=== PATIENT | female | born 1980 | race Caucasian/White ===

== ENCOUNTER → 2020-01-03 | Outpatient (REF) | payer MEDICARE ==
[2020-01-03 20:22] LABS: BASO % 0.4 % (0.0-1.0); EOS % 0.5 % (0.0-3.0); HEMATOCRIT 47.7 % (36.0-47.0); HEMOGLOBIN 15.1 g/dl (12.0-15.5); LYMPH # 2.1 10^3/uL (1.5-5.0); LYMPH % 28.5 % (24.0-44.0); MEAN CORPUSCULAR HEMOGLOBIN 31.2 pg (27.0-33.0); MEAN CORPUSCULAR HGB CONC 31.7 g/dl (32.0-36.5); MEAN CORPUSCULAR VOLUME 98.6 fl (80.0-96.0); MONO # 0.6 10^3/uL (0.0-0.8); MONO % 8.5 % (0.0-5.0); NEUTROPHILS # 4.6 10^3/uL (1.5-8.5); NEUTROPHILS % 61.8 % (36.0-66.0); PLATELET COUNT, AUTOMATED 345 10^3/uL (150-450); RED BLOOD COUNT 4.84 10^6/uL (4.00-5.40); WHITE BLOOD COUNT 7.4 10^3/uL (4.0-10.0)
== END ==
LOC: M SFHCLERA 15:25
PROVIDERS: ATTEND Nurse Practitioner Family
DX: Z86.39 Personal history of other endocrine, nutritional and metabolic disease (principal); Z86.2 Personal history of diseases of the blood and blood-forming organs and certain disorders involving the immune mechanism; Z79.899 Other long term (current) drug therapy
CPT/HCPCS: 82306; 85025; G0463

== ENCOUNTER → 2020-01-31 | Outpatient (CLI) | payer MEDICARE, MEDICAID ==
--- NOTE | 2020-02-02 03:13 | ECWPNPC ---
PATIENT NAME: JOSE FOWLER : 1980 GENDER: FEMALE VISIT DATE: 01/31/2020 DISCHARGE DATE: 01/31/20 1147 VISIT LOCKED DATE TIME: PHYSICIAN: PARIS TONY RESOURCE: PARIS TONY REASON FOR APPOINTMENT 1. LEFT TALUS FX,CHRONIC PAIN/RECIEVED INJ IN PAST HISTORY OF PRESENT ILLNESS PAIN SCREENING: PATIENT HAS A COMPLAINT OF ACUTE OR CHRONIC PAIN :YES LOCATION OF PAIN:NECK, RIGHT SHOULDER, LEFT HIP, RIGHT HIP, FEET, ANKLE(S) LEFT FOOT AND ANKLE, BACK OF NECK INTENSITY OF PAIN (SCALE OF 1 TO 10):6 WHAT DOES YOUR PAIN FEEL LIKE:ACHING, BURNING, SHARP, STABBING, TENDER, SORE, OTHER FEELS LIKE FRESH SPRAIN WHEN WALKING ESPECIALLY SOME DAYS IF FEELS LIKE NEEDLE PRICKS, INTENSE HEADACHE WHEN PAIN IS WORSEN DURATION:CONTINOUS, INTERMITTENT, BRIEF, AWAKENS FROM SLEEP 39-YEAR-OLD FEMALE IN FOR INITIAL PAIN CONSULT. SHE RATES HER PAIN CURRENTLY AT A 6 OUT OF 10 AND DESCRIBES IT ACHING, BURNING, SORE, TENDER, SHARP, AND STABBING. PATIENT HAS A HISTORY OF A LEFT TALUS FRACTURE AND HEAD INJECTIONS FOR THIS IN THE PAST WITH GOOD RELIEF IS HOPING TO HAVE THOSE PERFORMED AGAIN. FALL RISK SCREENING: SCREENING :NO FALLS REPORTED IN THE LAST YEAR CURRENT MEDICATIONS TAKING OMEPRAZOLE 40 MG CAPSULE DELAYED RELEASE ORAL TAKING ALBUTEROL SULFATE HFA 108 (90 BASE) MCG/ACT AEROSOL SOLUTION 1 PUFF NEEDED INHALATION EVERY 4 HRS TAKING MONTELUKAST SODIUM 10 MG TABLET 1 TABLET ORAL ONCE A DAY TAKING FLUTICASONE PROPIONATE 50 MCG/ACT SUSPENSION 1 SPRAY IN EACH NOSTRIL NASAL ONCE A DAY TAKING ADVAIR HFA 230-21 MCG/ACT AEROSOL 2 PUFFS INHALATION TWICE A DAY TAKING ACETAMINOPHEN-CODEINE #3 300-30 MG TABLET 1 TABLET NEEDED ORALLY EVERY 6 HRS TAKING BACLOFEN 10 MG TABLET 1 TABLET WITH FOOD OR MILK ORAL BEFORE BEDTIME NOT-TAKING DOXYCYCLINE MONOHYDRATE 100 MG CAPSULE 1 CAPSULE ORALLY EVERY 12 HRS MEDICATION LIST REVIEWED AND RECONCILED WITH THE PATIENT PAST MEDICAL HISTORY GOLTZ SYNDROME TENSION HEADACHES OSTEOARTHRITIS OF LEFT SUBTALAR JOINT POSTERIOR TIBIAL TENDONITIS (LEFT) BICUSPID AORTIC VALVE ASTHMA GERD VASOVAGAL SYNCOPE TALUS BONE FRACTURE 2002 PELVIC TILT (HIP PAIN) ROTATED CUFF TEAR (SUB SCAPULARIS) RIGHT SHOULDER ALLERGIES SULFA (FOR ALLERGY USE ONLY): RASH - ALLERGY CEPHALEXIN: RASH - ALLERGY CLINDAMYCIN HCL: RASH - ALLERGY VANCOMYCIN HCL: RASH - ALLERGY BACTRIM: RASH - ALLERGY ERYTHROMYCIN: SWELLING - ALLERGY NAPROXEN: RASH - ALLERGY CELEBREX: HIVES, ITCHING,SWELLING - ALLERGY LACTOSE: INTOLERANT - ALLERGY SURGICAL HISTORY THROAT SURGERY, SHORT PALLET TONSILECTOMY PARTCIAL HYSTERECTOMY MULTIPLE EAR TUBES GALLBLADDER COLLAR BONE SURGERY- CHILD FAMILY HISTORY FATHER: ALIVE 67 YRS, DIAGNOSED WITH HYPERTENSION MOTHER: ALIVE 66 YRS 1 BROTHER(S) - HEALTHY. SOCIAL HISTORY GENERAL: TOBACCO USE ARE YOU A:NONSMOKER HIV / HEP-C SCREENING HIV TEST OFFERED TO PATIENT:YES DATE OFFERED:01/03/2020 TEST ACCEPTED:NO HEP-C TEST OFFERED TO PATIENT:NO REASON:PATIENT DECLINED BROCHURE PROVIDED TO PATIENTYES OTHERS AT HOME: PARENTS. EDUCATION LEVEL OF EDUCATION:FINISHED HIGH SCHOOL DIET: REGULAR. LANGUAGE LANGUAGES SPOKEN:VINCENTIAN DOMESTIC VIOLENCE DO YOU FEEL SAFE IN YOUR ENVIRONMENT?YES RECREATIONAL DRUG USE DRUG USE?NO EXERCISE: DAILY. 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 NEEDED?NO PAIN CLINIC PFS, CLERGY, PUBLIC HEALTH REFERRALS PFS REFERRAL NEEDED?NO CLERGY REFERRAL NEEDED?NO PUBLIC HEALTH REFERRAL NEEDED?NO WAS THE PROVIDER NOTIFIED OF ANY PERTINENT INFO?NO HAS THE PATIENT BEEN EDUCATED REGARDING HIS/HER PLAN OF CARE?YES HAS THE PATIENT BEEN EDUCATED REGARDING PAIN, THE RISK FOR PAIN, THE IMPORTANCE OF EFFECTIVE PAIN MANAGEMENT, AND THE PAIN ASSESSMENT PROCESS?YES LATEX QUESTIONNAIRE LATEX ALLERGY : HAVE YOU EVER DEVELOPED ANY TYPE OF REACTION AFTER HANDLING LATEX PRODUCTS SUCH RUBBER GLOVES, CONDOMS, DIAPHRAGMS, BALLOONS, SOCKS, OR UNDERWEAR?NO LATEX ALLERGY : HAVE YOU EVER DEVELOPED ANY TYPE OF REACTION DURING OR AFTER DENTAL APPOINTMENT, VAGINAL/RECTAL EXAMINATION, SURGICAL PROCEDURE, OR ANY OTHER EXPOSURE?NO DATE ASKED : 01/03/2020 LATEX RISK : HAVE YOU EVER HAD ANY DIFFICULTY BREATHING OR HIVES AFTER EATING OR HANDLING ANY FRUITS, OR VEGETABLES; SUCH KIWI, BANANAS, STONE FRUITS, OR CHESTNUTSNO LATEX RISK : DO YOU HAVE A PREVIOUS PERSONAL HISTORY OF MORE THAN NINE SURGERIES, SPINA BIFIDA, OR REPEATED CATHERIZATIONS? NO LATEX RISK : ARE YOU FREQUENTLY EXPOSED TO LATEX PRODUCTS IN YOUR OCCUPATION?NO CAFFEINE CAFFEINE USE?YES HOW OFTEN AND HOW MUCH? COFFEE , 1/DAY ADVANCE DIRECTIVE ADVANCE DIRECTIVE DISCUSSED WITH PATIENT:YES PT STATES SHE FILLED OUT ONE IN [place] AND WOULD LIKE INFORMATION OR ASSISTANCE TO FILL ONE OUT. 01/31/20 CONFUCIANISM [id number] NONE MARITAL STATUS: SINGLE. ALCOHOL SCREENING DID YOU HAVE A DRINK CONTAINING ALCOHOL IN THE PAST YEAR?YES HOW OFTEN DID YOU HAVE SIX OR MORE DRINKS ON ONE OCCASION IN THE PAST YEAR?NEVER (0 POINTS) HOW MANY DRINKS DID YOU HAVE ON A TYPICAL DAY WHEN YOU WERE DRINKING IN THE PAST YEAR?1 OR 2 (0 POINTS) HOW OFTEN DID YOU HAVE A DRINK CONTAINING ALCOHOL IN THE PAST YEAR?MONTHLY OR LESS (1 POINT) POINTS1 INTERPRETATIONNEGATIVE OCCUPATION: DISABLED. SEXUAL HX HAD SEX IN THE LAST 12 MONTHS (VAGINAL, ORAL, OR ANAL)?NO HAVE YOU EVER HAD AN STD?NO HOSPITALIZATION/MAJOR DIAGNOSTIC PROCEDURE ABOVE REVIEW OF SYSTEMS REVIEWED BY: PROVIDER: ESAU LIVE . CONSTITUTIONAL: ANY CHANGE IN YOUR MEDICAL CONDITION? NO . CHILLS NO . FEVER NO . INFECTION: DO YOU HAVE NEW INFECTIONS? YES, SINUS INFECTION . DO YOU HAVE HISTORY OF MRSA? NO . MUSCULOSKELETAL: ANY NEW PATTERNS OF PAIN OR NUMBNESS? YES, PAIN HAS GOTTEN WORSE . SYTEMIC LUPUS NO . GASTROENTEROLOGY: ANY NEW CHANGE IN BOWEL CONTROL? NO . BARRETTS ESOPHAGUS NO . CIRRHOSIS NO . HEPATITIS NO . LIVER FAILURE NO . ACID REFLUX YES . UNEXPLAINED WEIGHT LOSS NO . GENITOURINARY: ANY NEW CHANGE IN BLADDER CONTROL? NO . IS THERE A CHANCE YOU COULD BE ? NO . HEMATOLOGY/LYMPH: DO YOU TAKE ANY BLOOD THINNERS? (FOR EXAMPLE- COUMADIN, PLAVIX, AGGRENOX, PLATEL, PRADAXA, OR XARELTO) NO . WHEN WAS YOUR LAST DOSE? DATE: TIME: . LOW PLATELET COUNT NO . SICKLE CELL DISEASE NO . VON WILLIEBRANDS NO . FACTOR V LEIDEN NO . THALLASEMIA NO . ANEMIA NO . EASY BRUISING YES . NEUROLOGY: HAVE YOU FALLEN IN THE PAST 12 MONTHS? NO . ANY NEW EXTREMITY NUMBNESS OR WEAKNESS? NO . HEAD INJURY NO . DEMENTIA NO . CEREBRAL PALSY NO . MULTIPLE SCLEROSIS NO . DIZZINESS LIGHTHEADED SENSATION, SENSATION OF ROOM SPINNING . HEADACHE NO, DULL ACHE, CONSTANT, FREQUENT , OCCIPITAL, POUNDING . STROKES NO . VERTIGO NO . CARDIOLOGY: DO YOU HAVE A PACEMAKER OR DEFIBRILLATOR? NO . ANGINA NO . HEART ATTACK NO . HEART SURGERY NO . CONGESTIVE HEART FAILURE/FLUID OVERLOAD NO . CHEST PAIN NO . HIGH BLOOD PRESSURE NO . IRREGULAR HEART BEAT SKIPPED HEART BEAT . RESPIRATORY: HAVE YOU BEEN SICK IN THE PAST WEEK? YES, SINUS INFECTION . FEVER NO . FLU LIKE SYMPTOMS? NO . CPAP NO . BYPAP NO . EMPHYSEMA ASTHMA . CHRONIC LUNG DISEASES NO . SHORTNESS OF BREATH ON EXERTION NO . COUGH NO . SNORING NO . INTEGUMENTARY: DO YOU HAVE ANY RASHES OR OPEN SORES? NO . ALLERGIC/IMMUNO: ARE YOU ALLERGIC TO IV DYE? NO . ANY NEW ALLERGIES? NO . PSYCHIATRIC: DO YOU HAVE THOUGHTS OF HURTING YOURSELF OR SOMEONE ELSE? NO . ARE YOU ABUSED, NEGLECTED, OR IN AN UNSAFE ENVIRONMENT? NO . ENDOCRINOLOGY: ARE YOU DIABETIC? NO . THYROID DISORDER NO . OTHER: DO YOU NEED ANY PRESCRIPTIONS? YES,ACETAMINOPHEN-CODEINE . IF YES, PLEASE LIST: ____ . ANY NEW PROBLEMS WITH YOUR MEDICATIONS? NO . WHEN DID YOU LAST EAT? ____ . WHEN DID YOU LAST DRINK? ____ . WHAT DID YOU LAST DRINK? ____ . NAME OF PERSON DRIVING YOU HOME? ____ . DO YOU HAVE ANY OTHER QUESTIONS OR CONCERNS YES, SHE STATED SHE WAS SEEN IN [place] EVERY 6 MONTHS BY THE [facility] DOCTOR GOT CORTISONE SHOT IN FOOT, HIP AND SHOULDER NEEDED . VITAL SIGNS WT 149.8 LBS, HT 61 IN, BMI 28.30 INDEX, BP 129/68 MM HG, HR 90 /MIN, RR 18 /MIN, TEMP 98.9 F, OXYGEN SAT % 98, SAFE IN ENV? (Y/N) YES, REVIEWED BY: KATIE CHRISTIE LPN. EXAMINATION GENERAL EXAMINATION: GENERALNO ACUTE DISTRESS, WELL NOURISHED AND HYDRATED. PSYCHAPPROPRIATE MOOD AND AFFECT . LUNGS:CLEAR TO AUSCULTATION BILATERALLY, NO WHEEZES, RHONCHI, RALES. HEART:NO MURMURS, REGULAR RATE AND RHYTHM. ASSESSMENTS PAIN IN LEFT ANKLE AND JOINTS OF LEFT FOOT - M25.572 (PRIMARY) TREATMENT PAIN IN LEFT ANKLE AND JOINTS OF LEFT FOOT CLINICAL NOTES: 39-YEAR-OLD FEMALE IN FOR INITIAL PAIN CONSULT. INFORMED PATIENT THAT WE DO NOT DUE ANKLE JOINT INJECTIONS HERE RECOMMENDED REFERRAL TO ORTHOPEDICS FOR FURTHER EVALUATION. PATIENT HAS EXPRESSED UNDERSTANDING OF AND WAS IN AGREEMENT WITH TREATMENT PLAN. GIVEN TIME TO ASK QUESTIONS AND EXPRESS CONCERNS. REFERRAL TO:[facility] REASON:JOINT INJECTIONS PROCEDURE CODES FA211 ESTABILISHED PATIENT [facility] CHARGE DISPOSITION & COMMUNICATION FOLLOW UP NEEDED ELECTRONICALLY SIGNED BY BRENDAN BAILON ON 02/01/2020 AT 03:23 PM EDT DISCLAIMER : THIS IS A VISIT SUMMARY EXTRACTED FROM THE [employer] CHART. IT IS NOT A COPY OF THE [employer] PROGRESS NOTE. NAVD
== END ==
LOC: M PAIN 10:30
PROVIDERS: ATTEND Family Medicine
DX: M25.572 Pain in left ankle and joints of left foot (principal)

== ENCOUNTER → 2020-02-16 | Outpatient (CLI) | payer MEDICARE, MEDICAID ==
--- NOTE | 2020-02-16 17:48 | REP ---
HISTORY: Persistent asthma. COMPARISON: There are no priors for comparison. FINDINGS: The superior mediastinal structures are midline. The cardiac silhouette is unremarkable in size, shape and position. The diaphragmatic surfaces of the lungs are regular and the costophrenic angles are clear. The pulmonary nevarez are clear. The imaged osseous structures are intact. The lung nevarez are somewhat hyperexpanded consistent with the patient's diagnosis. IMPRESSION: There is no acute cardiopulmonary disease. The lung nevarez are somewhat hyperexpanded consistent with the patient's diagnosis. Electronically Signed by Erick Monet DO 02/16/2020 06:33 P
== END ==
LOC: M WUC 16:17
PROVIDERS: ATTEND Nurse Practitioner Family
DX: J45.909 Unspecified asthma, uncomplicated (principal)

== ENCOUNTER → 2020-04-09 | Outpatient (CLI) | payer MEDICARE, MEDICAID | LOC: M LABSMTC 14:07 | PROVIDERS: ATTEND Family Medicine | DX: Z03.818 Encounter for observation for suspected exposure to other biological agents ruled out (principal); Z11.59 Encounter for screening for other viral diseases | CPT/HCPCS: C9803; U0003 ==

== ENCOUNTER → 2020-07-05 | Outpatient (REF) | payer MEDICARE, MEDICAID ==
[2020-08-08 12:52] LABS: BASO % 0.3 % (0.0-1.0); EOS # 0.1 10^3/uL (0.0-0.5); EOS % 1.8 % (0.0-3.0); HEMATOCRIT 41.1 % (36.0-47.0); HEMOGLOBIN 13.6 g/dl (12.0-15.5); LYMPH # 2.4 10^3/uL (1.5-5.0); LYMPH % 35.5 % (24.0-44.0); MEAN CORPUSCULAR HEMOGLOBIN 32.2 pg (27.0-33.0); MEAN CORPUSCULAR HGB CONC 33.1 g/dl (32.0-36.5); MEAN CORPUSCULAR VOLUME 97.2 fl (80.0-96.0); MONO # 0.7 10^3/uL (0.0-0.8); MONO % 9.5 % (0.0-5.0); NEUTROPHILS # 3.6 10^3/uL (1.5-8.5); NEUTROPHILS % 52.5 % (36.0-66.0); PLATELET COUNT, AUTOMATED 311 10^3/uL (150-450); RED BLOOD COUNT 4.23 10^6/uL (4.00-5.40); WHITE BLOOD COUNT 6.8 10^3/uL (4.0-10.0)
[2020-08-29 16:37] LABS: ALBUMIN 3.7 GM/DL (3.2-5.2); ALT/SGPT 17 U/L (12-78); BILIRUBIN,TOTAL 0.9 MG/DL (0.2-1.0); BLOOD UREA NITROGEN 11 MG/DL (7-18); CALCIUM LEVEL 9.3 MG/DL (8.5-10.1); CARBON DIOXIDE LEVEL 31 MEQ/L (21-32); CHLORIDE LEVEL 104 MEQ/L (98-107); CHOLESTEROL LEVEL 223 MG/DL (<200); CHOLESTEROL RISK RATIO 2.753 (<5); FREE T4 1.17 NG/DL (0.76-1.46); GLOMERULAR FILTRATION RATE > 60.0 (>60); GLUCOSE, FASTING 77 MG/DL (70-100); HDL CHOLESTEROL 81 MG/DL (>40); LDL CHOLESTEROL 129 MG/DL (<100); NON-HDL-C 142 MG/DL; POTASSIUM SERUM 4.2 MEQ/L (3.5-5.1); SODIUM LEVEL 139 MEQ/L (136-145); TOTAL PROTEIN 7.4 GM/DL (6.4-8.2); TRIGLYCERIDES LEVEL 65 MG/DL (<150)
== END ==
LOC: M SFHCLERA 06:46
PROVIDERS: ATTEND Nurse Practitioner Family
DX: Z86.2 Personal history of diseases of the blood and blood-forming organs and certain disorders involving the immune mechanism (principal); Z86.39 Personal history of other endocrine, nutritional and metabolic disease; Z13.220 Encounter for screening for lipoid disorders; E78.00 Pure hypercholesterolemia, unspecified

== ENCOUNTER → 2020-08-13 | Outpatient (CLI) | payer MEDICARE, MEDICAID ==
--- NOTE | 2020-08-13 14:50 | REPVR ---
PROCEDURE INFORMATION: Exam: XR Left Knee Exam date and time: 08/13/2020 2:30 PM Age: 40 years old Clinical indication: Pain; Knee; Left; Additional info: Non-resolving left knee pain, injury, patient has goltz syndrome. TECHNIQUE: Imaging protocol: XR Left knee. Views: 4 or more views. COMPARISON: No relevant prior studies available. FINDINGS: Bones/joints: There is marked osteopenia. No acute fracture or dislocation is identified. Soft tissues: Unremarkable. IMPRESSION: No acute fracture or dislocation. Electronically signed by: Joellen Clayton On 08/13/2020 14:49:54 PM
== END ==
LOC: M RAD 14:06
PROVIDERS: ATTEND Nurse Practitioner Family
DX: M25.562 Pain in left knee (principal)
CPT/HCPCS: 73564; G0463

== ENCOUNTER → 2020-09-13 | Outpatient (CLI) | payer MEDICARE, MEDICAID ==
--- NOTE | 2020-09-18 15:52 | DEXA ---
AP SPINE L1 - L4 0.751 -3.6 -3.6 LT FEMUR TOTAL 0.643 -2.9 -2.7 LT NECK 0.626 -3.0 -2.6 RT FEMUR TOTAL 0.694 -2.5 -2.3 RT NECK 0.866 -1.2 -0.8 TOTAL BODY TOTAL OTHER COMMENTS: There is low bone density of the right hip. There is osteoporosis of the spine. There is osteoporosis of the left hip. FOLLOW-UP: Recommendation for the next bone density exam: 2 years. DORA
== END ==
LOC: M WHC 14:04
PROVIDERS: ATTEND Nurse Practitioner Family
DX: M85.89 Other specified disorders of bone density and structure, multiple sites (principal)

== ENCOUNTER → 2020-12-18 | Outpatient (CLI) | payer OTHER, MEDICAID ==
[2020-12-18 16:33] LABS: BASO % 0.5 % (0.0-1.0); EOS # 0.1 10^3/uL (0.0-0.5); EOS % 1.4 % (0.0-3.0); HEMATOCRIT 46.2 % (36.0-47.0); HEMOGLOBIN 15.3 g/dl (12.0-15.5); LYMPH # 2.3 10^3/uL (1.5-5.0); LYMPH % 26.5 % (24.0-44.0); MEAN CORPUSCULAR HEMOGLOBIN 32.1 pg (27.0-33.0); MEAN CORPUSCULAR HGB CONC 33.1 g/dl (32.0-36.5); MEAN CORPUSCULAR VOLUME 97.1 fl (80.0-96.0); MONO # 0.7 10^3/uL (0.0-0.8); MONO % 8.3 % (0.0-5.0); NEUTROPHILS # 5.4 10^3/uL (1.5-8.5); NEUTROPHILS % 63.1 % (36.0-66.0); PLATELET COUNT, AUTOMATED 351 10^3/uL (150-450); RED BLOOD COUNT 4.76 10^6/uL (4.00-5.40); WHITE BLOOD COUNT 8.6 10^3/uL (4.0-10.0)
[2020-12-18 17:08] LABS: ALT/SGPT 19 U/L (12-78); BILIRUBIN,DIRECT 0.2 MG/DL (0.0-0.2); BILIRUBIN,TOTAL 0.6 MG/DL (0.2-1.0); BLOOD UREA NITROGEN 13 MG/DL (7-18); CREATININE FOR GFR 0.91 MG/DL (0.55-1.30); GLOMERULAR FILTRATION RATE > 60.0 (>60); IRON (FE) 58 UG/DL (50-170); PERCENT SATURATION 16.2 % (13.2-45.0); TOTAL IRON BINDING CAPACITY 359 UG/DL (250-450); TOTAL PROTEIN 7.7 GM/DL (6.4-8.2)
[2020-12-18 17:22] LABS: VITAMIN B12 LEVEL 481 PG/ML (247-911)
[2020-12-21 06:10] LABS: IGASUB2 121.3 mg/dL (73.2-301.2); IgA SERUM (part of Subclasses) 166 mg/dL (87-352); TISSUE TRANSGLUTAMINASE IgA <2 U/mL (0-3)
== END ==
LOC: M LAB 15:49
PROVIDERS: ATTEND Internal Medicine Gastroenterology
DX: K21.00 Gastro-esophageal reflux disease with esophagitis, without bleeding (principal)

== ENCOUNTER → 2020-12-21 | Outpatient (REF) | payer OTHER, MEDICAID | LOC: M LAB REF 15:00 | PROVIDERS: ATTEND Internal Medicine Gastroenterology | DX: K21.00 Gastro-esophageal reflux disease with esophagitis, without bleeding (principal) ==

== ENCOUNTER → 2021-01-06 | Outpatient (CLI) | payer OTHER, MEDICAID ==
[~2021-01-06] MED LIST: ACET1TAB16 PO; ADVA230A INH; ALBU8.5H INH; ALEN70TA82 PO; BACL10TA2 PO; D31000TA2 PO; DIAZ2TAB PO; ESSETAB4 PO; FLUTISP; LORA-674 PO; MONT10TA10 PO; OMEP-221 PO; PRED10TA2 PO; SUCR1ORA PO
== END ==
LOC: M LABSMTC 08:18
PROVIDERS: ATTEND Anesthesiology
DX: Z01.812 Encounter for preprocedural laboratory examination (principal); Z20.822 Contact with and (suspected) exposure to COVID-19

== ENCOUNTER 2021-01-11 09:27 | Day surgery (SDC) | payer OTHER, MEDICAID ==
[~2021-01-11] VITALS: Ht 157.5 cm; Wt 78.0 kg
[~2021-01-11 09:27] MED LIST changes: +NS 1,000 ML IV ONE
--- OUTSIDE RECORDS SUMMARY | 2021-01-11 09:30 | CCD ---
Author Author [facility] Organization [facility] Address Unknown Phone Unavailable Care Team Providers Care Peanut Sheller Name Role Phone Magalis Reynoso Unavailable PROBLEMS Type Condition ICD9-CM Code HUM88-MT Code Onset Dates Condition S tatus W/U Status Risk SNOMED Code Notes Problem Mild persistent asthma without complication J45.30 Active confirmed 223599198 Problem History of anemia Z86.2 Active confirmed 27 0898540 Problem Sinusitis, unspecified chronicity, unspecified location J32.9 Active confirmed 46318298 Problem Mild persistent asthma, uncomplicated J45.30 Ac tive confirmed 846990077 Problem Gastroesophageal reflux disease without esophagitis K21.9 Active confirmed 159735153 Problem History of vitamin D deficiency Z86.39 Active confirmed [id number] Problem 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 Active confirmed 333668168 Problem Aortic valve stenosis, mild I35.0 Active confirmed 73554938 ALLERGIES Allergen (clinical drug ingredient) Drug/Non Drug Allergy do cumented on EMR Reaction Allergy Type Onset Date Status Sulfa (for allergy use only) Rash Drug Allergy Active vancomycin Vancomycin HCl([facility] Code:[address]-09) Rash Drug All ergy Active celecoxib Celebrex([facility]C Code:[address]-16) Hives, itching,swelli ng Drug Allergy Active clindamycin Clindamycin HCl(NDC Code:[address]-65) Rash Drug A llergy Active cephalexin Cephalexin([facility] Code:[address]-23) Rash Drug Allergy Active naproxen Naproxen([facility] Code:[address]-31) Rash Drug Allergy Active Lactose([facility] Code:[address]-60) intolerant Drug Allergy Active sulfamethoxazole / trimethoprim Bactrim([facility] Code:[address]-08) Rash Drug Allergy Active erythromycin Erythromycin([facility] Code:[address]-30) swelling Drug All ergy Active ENCOUNTERS from 1980 to 2020-12-29 Encounter Location Date Provider Diagnosis [facility] [address] [place] [address] Dec, Magalis Reynoso IMMUNIZATIONS Vaccine Route Administration Date Status Influenza (18 yrs & older) Flublok IM Intramuscular Nov 08, 2020 Administered Pneumococcal Adult 0.5mL (Pneumovax 23) IM Intramuscular May Administered Influenza (6mo & up) Fluzone Unknown Jul 22, 2019 Adm inistered SOCIAL HISTORY Tobacco Use: Social History Observation Description Date Details (start date - stop date) Never Smoker Sex Assigned At : Social History Observation Description Sex Assigned At Unknown Education: Question Answer Notes Level of Education: Finished High School Audit Question Answer Notes Total Score: 1 Interpretation: Alcohol Education Language: Question Answer Notes Languages spoken: Khmer Lutheran: Question Answer Notes [employer] 33 None Sexual Hx: Question Answer Notes Had sex in the last 12 months (vaginal, oral, or anal)? No Have you ever had an STD? No Drug and Alcohol Question Answer Notes Total Score: 0 Interpretation: No problems reported Alcohol Screening: Question Answer Notes Did you have a drink containing alcohol in the past year? Ye s Points 1 Interpretation Negative How often did you have six or more drinks on one occas ion in the past year? Never (0 points) How many drinks did you have on a typica l day when you were drinking in the past year? 1 or 2 (0 points) How often did you have a drink containing alcohol in t he past year? Monthly or less (1 point) Tobacco Use: Question Answer Notes Are you a: never smoker REASON FOR REFERRAL No Information VITAL SIGNS No information MEDICATIONS Medication SIG (Take, Route, Frequency, Duration) Notes Start Da te End Date Status Albuterol Sulfate HFA 108 (90 Base) MCG/ACT 1 puff as needed Inhalation every 4 hrs Active Advair HFA 230-21 MCG/ACT 2 puffs Inhalation Twice a day 2 Dec, 2019 Active Fosamax 70 MG 1 tablet 30 minutes before t he first food, beverage or medicine of the day with plain water Orally weekly for 90 days Sep, Active Montelukast Sodium 10 MG 1 tablet Oral Once a day for 90 day(s) Active Claritin 10 MG 1 tablet Orally Once a day for 90 day(s) Active Fluticasone Propionate 50 MCG/ACT 1 spray in each nost ril Nasal Once a day for 30 Days Active Doxycycline Monohydrate 100 MG 1 capsule Orally twice a day for 5 day(s) Apr, Not-Taking Cholestyramine 4 GM 1 packet mixed with water or non-carbonated drink Orally Twice a day for 90 day(s) May, Active PredniSONE 20 MG 2 tablets Orally Once a day Nov, Active PredniSONE 10 MG 3 tablets Orally Once a day for 5 days Apr, Not-Taking Omeprazole 40 MG 1 capsule 30 minutes before morning meal Oral Daily for 90 days Active Acetaminophen-Codeine #3 300-30 MG 1 tablet as needed Orally every 6 hrs (MDD=4) for 30 days Active Baclofen 10 MG TAKE 1 TABLET BY MOUTH ONCE NIGHTLY BEFORE BEDTIME WITH FOOD OR MILK Active Doxycycline Monohydrate 100 MG 1 tablet Orally Twice a day for 7 day(s) Sep, Active PROCEDURES No Information RESULTS No Results REASON FOR VISIT Questions about Covid 19 vaccine MEDICAL (GENERAL) HISTORY Type Description Date Medical History Goltz syndrome Medical History Tension Headaches Medical History Osteoarthritis of left subtalar joint Medical History Posterior tibial tendonitis (left) Medical History Bicuspid Aortic Valve Medical History Asthma Medical History GERD Medical History Vasovagal Syncope Medical History Talus Bone Fracture 2002 Medical History Pelvic Tilt (Hip pain) Medical History Rotated Cuff Tear (Sub Scapularis) right shoulder Surgical History throat surgery, short pallet Surgical History tonsilectomy Surgical History partcial hysterectomy Surgical History multiple ear tubes Surgical History gallbladder Surgical History Collar Bone Surgery- child Hospitalization History above Goals Section No Information Health Concerns No Information MEDICAL EQUIPMENT No Information MENTAL STATUS No Information FUNCTIONAL STATUS No Information ASSESSMENTS No Information PLAN OF TREATMENT Medication Medication Name Sig Start Date Stop Date Acetaminophen-Codeine #3 300-30 MG 1 tablet as needed Orally every 6 hrs (MDD=4) for 30 days Next Appt Details Provider Name:Magalis Reynoso, 2020-05- 03 02:45:00 PM, [address] [place], [address], Insurance Providers Payer Name Payer Address Payer Phone Insured Name Patient Relati onship to Insured Coverage Start Date Coverage End Date MEDICAID [employer] [address] [facility] [id number] JOSE FOWLER [facility] [address] [address] [facility] [phone] JOSE FOWLER self
--- OUTSIDE RECORDS SUMMARY | 2021-01-11 09:30 | CCD ---
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 Problems Description No Information Available Social History Type Date Description Comments Sex Unknown ETOH Use Occasionally consumes alcohol Tobacco Use Start: Unknown Denies Smoking Smoking Status Reviewed: 02/10/20 Denies Smoking Allergies, Adverse Reactions, Alerts Active Allergies Reaction Severity Comments Date Sulfamethoxazole / Trimethoprim 02/10/2020 Cephalexin 02/10/2020 Clindamycin 02/10/2020 Vancomycin 02/10/2020 sulfa drugs 02/10/2020 Erythromycin 02/10/2020 Naproxen Sodium 02/10/2020 Celecoxib 02/10/2020 Lactose 02/10/2020 Medications Active Medications SIG Qnty Indications Ordering Provide r Date Valium 2mg Tablets 1 by mouth half an hour prior to mri may take 1 more tab 30 mins after if no effect from first one. 2tabs Jason Bowden MD 12/24/2020 Baclofen 10mg Tablets Unknown Loratadine 10mg Tablets Unknown Albuterol Sulfate HFA 108(90Base) mcg/Act Aerosol Unknown Fluticasone Propionate/Salmeterol 232-14mcg/Act Aerosol Unknown Montelukast Sodium 10mg Tablets Unknown Fluticasone Propionate 50mcg/Act Suspension Unknown Omeprazole 40mg Capsules DR Unknown Acetaminophen 325mg/10.15ML Solution Unknown Pseudoephedrine HCL Powder Unknown Cholestyramine 4gm Packet 4 gm 2-3 times daily as needed Unknown Immunizations Description No Information Available Vital Signs Date Vital Result Comment 12/24/2020 2:28pm Body Temperature 97.1 F Height 62 inches 5'2" Weight 174.00 lb BMI (Body Mass Index) 31.8 kg/m2 12/21/2020 10:59am Body Temperature 97.3 F Results Description No Information Available Procedures Date Code Description Status 12/28/2020 35449 Therapeutic Procedure, Each 15 M inutes Completed 12/25/2020 85803 Therapeutic Procedure, Each 15 M inutes Completed 12/24/2020 72125 X-Ray Hip Unilateral With Pelvis 2-3 Views Completed 12/20/2020 29057 Therapeutic Procedure, Each 15 M inutes Completed 12/17/2020 95954 Therapeutic Procedure, Each 15 M inutes Completed 12/14/2020 27546 Therapeutic Procedure, Each 15 M inutes Completed 12/12/2020 62346 Therapeutic Procedure, Each 15 M inutes Completed 12/05/2020 92380 Therapeutic Procedure, Each 15 M inutes Completed 11/30/2020 14714 Therapeutic Procedure, Each 15 M inutes Completed 11/28/2020 38419 Therapeutic Procedure, Each 15 M inutes Completed 11/22/2020 41582 Therapeutic Procedure, Each 15 M inutes Completed 11/20/2020 69519 Therapeutic Procedure, Each 15 M inutes Completed 11/13/2020 62696 Therapeutic Procedure, Each 15 M inutes Completed 10/10/2020 09593 Therapeutic Procedure, Each 15 M inutes Completed 10/08/2020 91713 Therapeutic Procedure, Each 15 M inutes Completed 10/03/2020 87327 Therapeutic Procedure, Each 15 M inutes Completed 10/01/2020 53763 Therapeutic Procedure, Each 15 M inutes Completed 09/26/2020 23207 Therapeutic Procedure, Each 15 M inutes Completed 09/24/2020 86466 Therapeutic Procedure, Each 15 M inutes Completed 09/19/2020 67360 Physical Therapy Eval - Low Comp lexity Completed 08/20/2020 70542 MRI Lower Extremity Any Joint Co mpleted 08/20/2020 08670 MRI Lower Extremity Any Joint Co mpleted Medical Devices Description No Information Available Encounters Type Date Location Provider Dx Diagnosis Office Visit 12/24/2020 2:00p Meenu Bowden MD M25.551 Pain in right hip Office Visit 12/21/2020 11:00a Graftonhuan Baker MD S8 3.282D Oth tear of lat mensc, current injury, left knee, subs M17.12 Unilateral primary osteoarth ritis, left knee Office Visit 09/11/2020 2:15p Meenu Baker MD S8 3.282A Oth tear of lat mensc, current injury, left knee, init M17.12 Unilateral primary osteoarth ritis, left knee Office Visit 08/15/2020 2:15p Graftonhuan Baker MD S8 3.92xA Sprain of unspecified site of left knee, initial encounter Assessments Date Code Description Provider 12/28/2020 S83.282D Other tear of latera l meniscus, current injury, left knee, subsequent encounter Danamarie Ortolano, [employer]ING [employer]ER 12/28/2020 M17.12 Unilateral primary osteoarthriti s, left knee Danamarie Ortolano, [employer] GR[employer]ER 12/25/2020 S83.282D Other tear of latera l meniscus, current injury, left knee, subsequent encounter Danamarie Ortolano, [employer]ING GR[employer]ER 12/25/2020 M17.12 Unilateral primary osteoarthriti s, left knee Danamarie Ortolano, [employer]ING GRADER 12/24/2020 M25.551 Pain in right hip Jason Bowden MD 12/21/2020 S83.282D Other tear of latera l meniscus, current injury, left knee, subsequent encounter Deana Baker MD 12/21/2020 M17.12 Unilateral primary osteoarthriti s, left knee Deana Baker MD 12/20/2020 S83.282D Other tear of latera l meniscus, current injury, left knee, subsequent encounter Danamarie Ortolano, [employer]ER 12/20/2020 M17.12 Unilateral primary osteoarthriti s, left knee Danamarie Ortolano, [employer] GRADER 12/17/2020 S83.282D Other tear of latera l meniscus, current injury, left knee, subsequent encounter Danamarie Ortolano, [employer] GR[employer]ER 12/17/2020 M17.12 Unilateral primary osteoarthriti s, left knee Danamarie Ortolano, [employer] GR[employer]ER 12/14/2020 S83.282D Other tear of latera l meniscus, current injury, left knee, subsequent encounter Danamarie Ortolano, [employer]ING GR[employer]ER 12/14/2020 M17.12 Unilateral primary osteoarthriti s, left knee Danamarie Ortolano, [employer] GR[employer]ER 12/12/2020 S83.282D Other tear of latera l meniscus, current injury, left knee, subsequent encounter [facility], [facility] 12/12/2020 M17.12 Unilateral primary osteoarthriti s, left knee Dominique Redmond, [facility] 12/05/2020 S83.282D Other tear of latera l meniscus, current injury, left knee, subsequent encounter Danamarie Ortolano, [employer] GR[employer]ER 12/05/2020 M17.12 Unilateral primary osteoarthriti s, left knee Danamarie Ortolano, [employer] GR[employer]ER 11/30/2020 S83.282D Other tear of latera l meniscus, current injury, left knee, subsequent encounter Danamarie Ortolano, P[employer]LING GRADER 11/30/2020 M17.12 Unilateral primary osteoarthriti s, left knee Danamarie Ortolano, P[employer]ING GRADER 11/28/2020 S83.282D Other tear of latera l meniscus, current injury, left knee, subsequent encounter Danamarie Ortolano, P[employer]LING GRADER 11/28/2020 M17.12 Unilateral primary osteoarthriti s, left knee Danamarie Ortolano, P[employer]LING GRADER 11/22/2020 S83.282D Other tear of latera l meniscus, current injury, left knee, subsequent encounter Dominique Redmond, [facility] 11/22/2020 M17.12 Unilateral primary osteoarthriti s, left knee Dominique Redmond, [facility] 11/20/2020 S83.282D Other tear of latera l meniscus, current injury, left knee, subsequent encounter Danamarie Ortolano, [employer] GR[employer]ER 11/20/2020 M17.12 Unilateral primary osteoarthriti s, left knee Danamarie Ortolano, [employer]ING GRADER 11/13/2020 S83.282D Other tear of latera l meniscus, current injury, left knee, subsequent encounter Danamarie Ortolano, P[employer]ING GRADER 11/13/2020 M17.12 Unilateral primary osteoarthriti s, left knee Danamarie Ortolano, P[employer]LING GRADER 10/10/2020 S83.282D Other tear of latera l meniscus, current injury, left knee, subsequent encounter Danamarie Ortolano, P[employer]LING GRADER 10/10/2020 M17.12 Unilateral primary osteoarthriti s, left knee Danamarie Ortolano, P[employer]LING GRADER 10/08/2020 S83.282D Other tear of latera l meniscus, current injury, left knee, subsequent encounter Danamarie Ortolano, P[employer]LING GRADER 10/08/2020 M17.12 Unilateral primary osteoarthriti s, left knee Danamarie Ortolano, [employer] GRADER 10/03/2020 S83.282D Other tear of latera l meniscus, current injury, left knee, subsequent encounter Dominique Redmond, [facility] 10/03/2020 M17.12 Unilateral primary osteoarthriti s, left knee Dominique Redmond, [facility] 10/01/2020 S83.282D Other tear of latera l meniscus, current injury, left knee, subsequent encounter Danamarie Ortolano, P[employer]LING GRADER 10/01/2020 M17.12 Unilateral primary osteoarthriti s, left knee Danamarie Ortolano, P[employer]LING GRADER 09/26/2020 S83.282D Other tear of latera l meniscus, current injury, left knee, subsequent encounter Danamarie Ortolano, P[employer]LING GRADER 09/26/2020 M17.12 Unilateral primary osteoarthriti s, left knee Danamarie Ortolano, P[employer]LING GRADER 09/24/2020 S83.282D Other tear of latera l meniscus, current injury, left knee, subsequent encounter Danamarie Ortolano, P[employer]LING GRADER 09/24/2020 M17.12 Unilateral primary osteoarthriti s, left knee Danamarie Ortolano, PICKLING GRADER 09/19/2020 S83.282D Other tear of latera l meniscus, current injury, left knee, subsequent encounter Dominique Redmond, [facility] 09/19/2020 M17.12 Unilateral primary osteoarthriti s, left knee Dominique Redmond, [facility] 09/11/2020 S83.282A Other tear of latera l meniscus, current injury, left knee, initial encounter Deana Baker MD 09/11/2020 M17.12 Unilateral primary osteoarthriti s, left knee Deana Baker MD 08/20/2020 S83.92xA Sprain of unspecified site of le ft knee, initial encounter Deana Baker MD 08/20/2020 S83.92xA Sprain of unspecified site of le ft knee, initial encounter MRI 08/15/2020 S83.92xA Sprain of unspecified site of le ft knee, initial encounter Deana Baker MD Plan of Treatment 12/21/2020 - Deana Baker MD* S83.282D Other tear of lateral meniscus, current injury, left knee, subsequent encounter* Follow up:* prn * M17.12 Unilateral primary osteoarthritis, left knee Functional Status Description No Information Available Mental Status Description No Information Available Referrals Refer to Dr Reason for Referral Status Appt Date Colby Bustillo, PICKLING GRADER PT AUTH GOOD FOR EVAL THAN AUTH DUE TO MED NESS. SS Created [address] [place], [place] [id number] [phone] Roseanne Baron MD PT - UNL VISITS OK'D FOR L Adele RODRIGEUZ FROM 12/03-, RESP# [id number]. SS Created [address] [place] [address] [phone] Roseanne Baron MD PT BASED ON MED. NECC TO PT DEPT. NT Cre ated [address] [place] [address] [phone] Roseanne Baron MD MRI NO AUTH REQUIRED FOR MRI OF LEFT KNEE ([id number]) TO MRI. DG Created [address] [place] [address] [phone] Roseanne Baron MD MRI NO AUTH REQUIRED FOR MRI OF LEFT KNEE ([id number]) TO MRI. DG Created [address] [place] [address] [phone]
--- OUTSIDE RECORDS SUMMARY | 2021-01-11 09:30 | CCD | Continuity of Care Document ---
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 Problems Description No Information Available Social [...] Available Procedures Date Code Description Status 12/28/2020 66219 Therapeutic Procedure, Each 15 M inutes Completed 12/25/2020 42148 Therapeutic Procedure, Each 15 M inutes Completed 12/24/2020 63652 X-Ray Hip Unilateral With Pelvis 2-3 Views Completed 12/20/2020 81683 Therapeutic Procedure, Each 15 M inutes Completed 12/17/2020 60990 Therapeutic Procedure, Each 15 M inutes Completed 12/14/2020 98590 Therapeutic Procedure, Each 15 M inutes Completed 12/12/2020 86259 Therapeutic Procedure, Each 15 M inutes Completed 12/05/2020 63565 Therapeutic Procedure, Each 15 M inutes Completed 11/30/2020 96431 Therapeutic Procedure, Each 15 M inutes Completed 11/28/2020 10561 Therapeutic Procedure, Each 15 M inutes Completed 11/22/2020 12968 Therapeutic Procedure, Each 15 M inutes Completed 11/20/2020 91570 Therapeutic Procedure, Each 15 M inutes Completed 11/13/2020 88024 Therapeutic Procedure, Each 15 M inutes Completed 10/10/2020 06604 Therapeutic Procedure, Each 15 M inutes Completed 10/08/2020 18115 Therapeutic Procedure, Each 15 M inutes Completed 10/03/2020 57624 Therapeutic Procedure, Each 15 M inutes Completed 10/01/2020 21374 Therapeutic Procedure, Each 15 M inutes Completed 09/26/2020 95197 Therapeutic Procedure, Each 15 M inutes Completed 09/24/2020 87084 Therapeutic Procedure, Each 15 M inutes Completed 09/19/2020 65819 Physical Therapy Eval - Low Comp lexity Completed 08/20/2020 00487 MRI Lower Extremity Any Joint Co mpleted 08/20/2020 80264 MRI Lower Extremity Any Joint Co mpleted Medical Devices Description No Information Available Encounters Type Date Location Provider Dx Diagnosis Office Visit 12/24/2020 2:00p Meenu Bowden MD M25.551 Pain in right hip Office Visit 12/21/2020 11:00a Meenu Baker MD S8 3.282D Oth tear of lat mensc, current injury, left knee, subs M17.12 Unilateral primary osteoarth ritis, left knee Office Visit 09/11/2020 2:15p Meenu Baker MD S8 3.282A Oth tear of lat mensc, current injury, left knee, init M17.12 Unilateral primary osteoarth ritis, left knee Office Visit 08/15/2020 2:15p Meenu Baker MD S8 3.92xA Sprain of unspecified site of left knee, initial encounter Assessments Date Code Description Provider 12/28/2020 S83.282D Other tear of latera l meniscus, current injury, left knee, subsequent encounter Danamarie Ortolano, [employer]ICATING SH[employer] HELPER 12/28/2020 M17.12 Unilateral primary osteoarthriti s, left knee Danamarie Ortolano, [employer] FAB[employer]ICATING SHOP HELPER 12/25/2020 S83.282D Other tear of latera l meniscus, current injury, left knee, subsequent encounter Danamarie Ortolano, METAL F[employer]ICATING SHOP HELPER 12/25/2020 M17.12 Unilateral primary osteoarthriti s, left knee Danamarie Ortolano, METAL F[employer]ICATING SHOP HELPER 12/24/2020 M25.551 Pain in right hip Jason Bowden MD 12/21/2020 S83.282D Other tear of latera l meniscus, current injury, left knee, subsequent encounter Deana Baker MD 12/21/2020 M17.12 Unilateral primary osteoarthriti s, left knee Deana Baker MD 12/20/2020 S83.282D Other tear of latera l meniscus, current injury, left knee, subsequent encounter Danamarie Ortolano, METAL F[employer]ICATING SHOP HELPER 12/20/2020 M17.12 Unilateral primary osteoarthriti s, left knee Danamarie Ortolano, METAL FABRICATING SHOP HELPER 12/17/2020 S83.282D Other tear of latera l meniscus, current injury, left knee, subsequent encounter Danamarie Ortolano, METAL FABRICATING SHOP HELPER 12/17/2020 M17.12 Unilateral primary osteoarthriti s, left knee Danamarie Ortolano, METAL FABRICATING SHOP HELPER 12/14/2020 S83.282D Other tear of latera l meniscus, current injury, left knee, subsequent encounter Danamarie Ortolano, METAL FABRICATING SHOP HELPER 12/14/2020 M17.12 Unilateral primary osteoarthriti s, left knee Danamarie Ortolano, METAL FABRICATING SHOP HELPER 12/12/2020 S83.282D Other tear of latera l meniscus, current injury, left knee, subsequent encounter Dominique Redmond, MSPT 12/12/2020 M17.12 Unilateral primary osteoarthriti s, left knee [facility], [facility] 12/05/2020 S83.282D Other tear of latera l meniscus, current injury, left knee, subsequent encounter Danamarie Ortolano, METAL FABRICATING SHOP HELPER 12/05/2020 M17.12 Unilateral primary osteoarthriti s, left knee Danamarie Ortolano, METAL FABRICATING SHOP HELPER 11/30/2020 S83.282D Other tear of latera l meniscus, current injury, left knee, subsequent encounter Danamarie Ortolano, METAL FABRICATING SHOP HELPER 11/30/2020 M17.12 Unilateral primary osteoarthriti s, left knee Danamarie Ortolano, METAL FABRICATING SHOP HELPER 11/28/2020 S83.282D Other tear of latera l meniscus, current injury, left knee, subsequent encounter Danamarie Ortolano, METAL FABRICATING SHOP HELPER 11/28/2020 M17.12 Unilateral primary osteoarthriti s, left knee Danamarie Ortolano, METAL FABRICATING SHOP HELPER 11/22/2020 S83.282D Other tear of latera l meniscus, current injury, left knee, subsequent encounter Dominique Redmond, MSPT 11/22/2020 M17.12 Unilateral primary osteoarthriti s, left knee [facility] Redmond, [facility] 11/20/2020 S83.282D Other tear of latera l meniscus, current injury, left knee, subsequent encounter Danamarie Ortolano, METAL FABRICATING SHOP HELPER 11/20/2020 M17.12 Unilateral primary osteoarthriti s, left knee Danamarie Ortolano, MET[employer] F[employer]RICATING SHOP HELPER 11/13/2020 S83.282D Other tear of latera l meniscus, current injury, left knee, subsequent encounter Danamarie Ortolano, MET[employer] F[employer]RICATING SHOP HELPER 11/13/2020 M17.12 Unilateral primary osteoarthriti s, left knee Danamarie Ortolano, MET[employer] F[employer]ICATING SHOP HELPER 10/10/2020 S83.282D Other tear of latera l meniscus, current injury, left knee, subsequent encounter Danamarie Ortolano, METAL FABRICATING SHOP HELPER 10/10/2020 M17.12 Unilateral primary osteoarthriti s, left knee Danamarie Ortolano, MET[employer] F[employer]ICATING SHOP HELPER 10/08/2020 S83.282D Other tear of latera l meniscus, current injury, left knee, subsequent encounter Danamarie Ortolano, METAL F[employer]RICATING SHOP HELPER 10/08/2020 M17.12 Unilateral primary osteoarthriti s, left knee Danamarie Ortolano, METAL F[employer]RICATING SHOP HELPER 10/03/2020 S83.282D Other tear of latera l meniscus, current injury, left knee, subsequent encounter Dominique Redmond, MSPT 10/03/2020 M17.12 Unilateral primary osteoarthriti s, left knee [facility] Red[facility], [facility] 10/01/2020 S83.282D Other tear of latera l meniscus, current injury, left knee, subsequent encounter Danamarie Ortolano, METAL FABRICATING SHOP HELPER 10/01/2020 M17.12 Unilateral primary osteoarthriti s, left knee Danamarie Ortolano, METAL FABRICATING SHOP HELPER 09/26/2020 S83.282D Other tear of latera l meniscus, current injury, left knee, subsequent encounter Danamarie Ortolano, METAL FABRICATING SHOP HELPER 09/26/2020 M17.12 Unilateral primary osteoarthriti s, left knee Danamarie Ortolano, METAL FABRICATING SHOP HELPER 09/24/2020 S83.282D Other tear of latera l meniscus, current injury, left knee, subsequent encounter Danamarie Ortolano, METAL FABRICATING SHOP HELPER 09/24/2020 M17.12 Unilateral primary osteoarthriti s, left knee Danamarie Ortolano, METAL FABRICATING SHOP HELPER 09/19/2020 S83.282D Other tear of latera l meniscus, current injury, left knee, subsequent encounter Dominique Redmond, MSPT 09/19/2020 M17.12 Unilateral primary osteoarthriti s, left knee [facility] Redmond, [facility] 09/11/2020 S83.282A Other tear of latera l [...] encounter Deana Baker MD Plan of Treatment No Information Available Functional Status Description No Information Available Mental Status Description No Information Available Referrals Refer to Dr Reason for Referral Status Appt Date Jason Bowden MD MRI NO AUTH REQUIRED PER SAURABH Allen FOR MRI OF RIGHT HIP ([id number]) TO JESSICA Gillette. DG Created [address] [place] [address] [phone] Jason Bowden MD MRI APPROVED PER [employer] FOR MRI OF RIGHT HIP ([id number]) TO JESSICA Gillette. DG Created [address] [place] [address] [phone] Colby Waller, AVERY PT AUTH GOOD FOR EVAL THAN AUTH DUE TO MED NESS. SS Created [address] [place] [address], [address] [id number] [phone] Roseanne Baron MD PT - UNL VISITS OK'D FOR Melvin RODRIGUEZ FROM 12/03-, RESP# [id number]. SS Created [address] [place] [address] [address] [place] [address] [phone] Roseanne Baron MD PT BASED ON MED. NECC TO PT DEPT. NT Cre ated [address] [place], [place] [id number] [place] [address] [phone] Roseanne Baron MD MRI NO AUTH REQUIRED FOR MRI OF LEFT KNEE ([id number]) TO MRI. DG Created [address] [id number] [phone] Roseanne Baron MD MRI NO AUTH REQUIRED FOR MRI OF LEFT KNEE ([id number]) TO MRI. DG Created [address] [id number] [phone]
--- OUTSIDE RECORDS SUMMARY | 2021-01-11 09:31 | CCD | Continuity of Care Document ---
Author Author Roberta REDMOND [facility] Organization Unknown Address [address] [place] [address] Phone [phone] Care Team Providers Care Senior Storage Administrator Name Role Phone Magalis Reynoso [facility] AUTM Problems Description No Information Available Social [...] SIG Qnty Indications Ordering Provide r Date Baclofen 10mg Tablets Unknown Loratadine 10mg Tablets [...] Available Vital Signs Date Vital Result Comment 08/15/2020 2:31pm Body Temperature 97.6 F Height 62 inches 5'2" Weight 164.00 lb BMI (Body Mass Index) 30.0 kg/m2 02/09/2020 2:41pm Body Temperature 98.4 F Height 62 inches 5'2" Weight 148.12 lb BMI (Body Mass Index) 27.1 kg/m2 Results Description No Information Available Procedures Date Code Description Status 12/17/2020 28539 Therapeutic Procedure, Each 15 M inutes Completed 12/14/2020 97123 Therapeutic Procedure, Each 15 M inutes Completed 12/12/2020 24623 Therapeutic Procedure, Each 15 M inutes Completed 12/05/2020 02313 Therapeutic Procedure, Each 15 M inutes Completed 11/30/2020 32640 Therapeutic Procedure, Each 15 M inutes Completed 11/28/2020 76604 Therapeutic Procedure, Each 15 M inutes Completed 11/22/2020 95710 Therapeutic Procedure, Each 15 M inutes Completed 11/20/2020 59436 Therapeutic Procedure, Each 15 M inutes Completed 11/13/2020 44784 Therapeutic Procedure, Each 15 M inutes Completed 10/10/2020 97185 Therapeutic Procedure, Each 15 M inutes Completed 10/08/2020 93277 Therapeutic Procedure, Each 15 M inutes Completed 10/03/2020 07220 Therapeutic Procedure, Each 15 M inutes Completed 10/01/2020 10766 Therapeutic Procedure, Each 15 M inutes Completed 09/26/2020 23464 Therapeutic Procedure, Each 15 M inutes Completed 09/24/2020 58283 Therapeutic Procedure, Each 15 M inutes Completed 09/19/2020 82699 Physical Therapy Eval - Low Comp lexity Completed 08/20/2020 25395 MRI Lower Extremity Any Joint Co mpleted 08/20/2020 03940 MRI Lower Extremity Any Joint Co mpleted Medical Devices Description No Information Available Encounters Type Date Location Provider Dx Diagnosis Office Visit 09/11/2020 2:15p Meenu Baker MD S8 3.282A Oth tear of lat mensc, current injury, left knee, init M17.12 Unilateral primary osteoarth ritis, left knee Office Visit 08/15/2020 2:15p Meenu Baker MD S8 3.92xA Sprain of unspecified site of left knee, initial encounter Assessments Date Code Description Provider 12/17/2020 S83.282D Other tear of latera l meniscus, current injury, left knee, subsequent encounter Danamarie Ortolano, LADLER 12/17/2020 M17.12 Unilateral primary osteoarthriti s, left knee Danamarie Ortolano, LADLER 12/14/2020 S83.282D Other tear of latera l meniscus, current injury, left knee, subsequent encounter Danamarie Ortolano, LADLER 12/14/2020 M17.12 Unilateral primary osteoarthriti s, left knee Danamarie Ortolano, LADLER 12/12/2020 S83.282D Other tear of latera l meniscus, current injury, left knee, subsequent encounter Dominique Redmond, MSPT 12/12/2020 M17.12 Unilateral primary osteoarthriti s, left knee [facility] 12/05/2020 S83.282D Other tear of latera l meniscus, current injury, left knee, subsequent encounter Danamarie Ortolano, LADLER 12/05/2020 M17.12 Unilateral primary osteoarthriti s, left knee Danamarie Ortolano, LADLER 11/30/2020 S83.282D Other tear of latera l meniscus, current injury, left knee, subsequent encounter Danamarie Ortolano, LADLER 11/30/2020 M17.12 Unilateral primary osteoarthriti s, left knee Danamarie Ortolano, LADLER 11/28/2020 S83.282D Other tear of latera l meniscus, current injury, left knee, subsequent encounter Danamarie Ortolano, LADLER 11/28/2020 M17.12 Unilateral primary osteoarthriti s, left knee Danamarie Ortolano, LADLER 11/22/2020 S83.282D Other tear of latera l meniscus, current injury, left knee, subsequent encounter Dominique Redmond, MSPT 11/22/2020 M17.12 Unilateral primary osteoarthriti s, left knee Dominique Redmond, [facility] 11/20/2020 S83.282D Other tear of latera l meniscus, current injury, left knee, subsequent encounter Danamarie Ortolano, LADLER 11/20/2020 M17.12 Unilateral primary osteoarthriti s, left knee Danamarie Ortolano, LADLER 11/13/2020 S83.282D Other tear of latera l meniscus, current injury, left knee, subsequent encounter Danamarie Ortolano, LADLER 11/13/2020 M17.12 Unilateral primary osteoarthriti s, left knee Danamarie Ortolano, LADLER 10/10/2020 S83.282D Other tear of latera l meniscus, current injury, left knee, subsequent encounter Danamarie Ortolano, LADLER 10/10/2020 M17.12 Unilateral primary osteoarthriti s, left knee Danamarie Ortolano, LADLER 10/08/2020 S83.282D Other tear of latera l meniscus, current injury, left knee, subsequent encounter Danamarie Ortolano, LADLER 10/08/2020 M17.12 Unilateral primary osteoarthriti s, left knee Danamarie Ortolano, LADLER 10/03/2020 S83.282D Other tear of latera l meniscus, current injury, left knee, subsequent encounter Dominique Redmond, MSPT 10/03/2020 M17.12 Unilateral primary osteoarthriti s, left knee Dominique Redmond, MSPT 10/01/2020 S83.282D Other tear of latera l meniscus, current injury, left knee, subsequent encounter Danamarie Ortolano, LADLER 10/01/2020 M17.12 Unilateral primary osteoarthriti s, left knee Danamarie Ortolano, LADLER 09/26/2020 S83.282D Other tear of latera l meniscus, current injury, left knee, subsequent encounter Danamarie Ortolano, LADLER 09/26/2020 M17.12 Unilateral primary osteoarthriti s, left knee Danamarie Ortolano, LADLER 09/24/2020 S83.282D Other tear of latera l meniscus, current injury, left knee, subsequent encounter Danamarie Ortolano, LADLER 09/24/2020 M17.12 Unilateral primary osteoarthriti s, left knee Danamarie Ortolano, LADLER 09/19/2020 S83.282D Other tear of latera l meniscus, current injury, left knee, subsequent encounter Dominique Redmond, MSPT 09/19/2020 M17.12 Unilateral primary osteoarthriti s, left knee Dominique Redmond, MSPT 09/11/2020 S83.282A Other tear of latera l [...] encounter Deana Baker MD Plan of Treatment Future Appointment(s):* 12/28/2020 2:00 pm - Colby Waller, LADLER at Physical Therapy * 12/25/2020 2:00 pm - Colby Lottlanjae, LADLER at Physical Therapy * 12/20/2020 4:30 pm - Katieriwilson Lottlanjae, LADLER at Physical Therapy * 12/21/2020 11:00 am - Deana Baker MD at [place] Functional Status Description No Information Available Mental Status Description No Information Available Referrals Refer to Dr Reason for Referral Status Appt Date Bennetttonegar, Colby, LADLER PT AUTH GOOD FOR EVAL THAN AUTH DUE TO MED NESS. SS Created [address] [place] [phone] Roseanne Baron MD PT - UNL VISITS OK'D FOR L K NEE FROM 12/03-, RESP# [id number]. SS Created [address] [place] [address] [address] [place] [phone] Roseanne Baron MD PT BASED ON MED. NECC TO PT DEPT. NT Cre ated [address] [place] [address] [phone] Roseanne Baron MD MRI NO AUTH REQUIRED FOR MRI OF LEFT KNEE ([id number]) TO MRI. ERNESTO Created [address] [place] [phone] Roseanne Baron MD MRI NO AUTH REQUIRED FOR MRI OF LEFT KNEE ([id number]) TO MRI. ERNESTO Created [address] [place] [phone]
--- OUTSIDE RECORDS SUMMARY | 2021-01-11 09:31 | CCD | Continuity of Care Document ---
Author Author Roberta BUSTILLO [facility] Organization Unknown Address [address] [address] Phone [phone] Care Team Providers Care Telephone Interceptor Operator Name Role Phone Magalis Reynoso [facility] AUTM [phone] Problems Description No Information Available Social History [...] Available Procedures Date Code Description Status 12/17/2020 01864 Therapeutic Procedure, Each 15 M inutes Completed 12/14/2020 99872 Therapeutic Procedure, Each 15 M inutes Completed 12/12/2020 68323 Therapeutic Procedure, Each 15 M inutes Completed 12/05/2020 99108 Therapeutic Procedure, Each 15 M inutes Completed 11/30/2020 76133 Therapeutic Procedure, Each 15 M inutes Completed 11/28/2020 46388 Therapeutic Procedure, Each 15 M inutes Completed 11/22/2020 89692 Therapeutic Procedure, Each 15 M inutes Completed 11/20/2020 77324 Therapeutic Procedure, Each 15 M inutes Completed 11/13/2020 17836 Therapeutic Procedure, Each 15 M inutes Completed 10/10/2020 44273 Therapeutic Procedure, Each 15 M inutes Completed 10/08/2020 84004 Therapeutic Procedure, Each 15 M inutes Completed 10/03/2020 52781 Therapeutic Procedure, Each 15 M inutes Completed 10/01/2020 02011 Therapeutic Procedure, Each 15 M inutes Completed 09/26/2020 76504 Therapeutic Procedure, Each 15 M inutes Completed 09/24/2020 44661 Therapeutic Procedure, Each 15 M inutes Completed 09/19/2020 72391 Physical Therapy Eval - Low Comp lexity Completed 08/20/2020 66924 MRI Lower Extremity Any Joint Co mpleted 08/20/2020 54422 MRI Lower Extremity Any Joint Co mpleted [...] injury, left knee, subsequent encounter Danamarie Ortolano, PLANNING MANAGER 12/17/2020 M17.12 Unilateral primary osteoarthriti s, left knee Danamarie Ortolano, PLANNING MANAGER 12/14/2020 S83.282D Other tear of latera l meniscus, current injury, left knee, subsequent encounter Danamarie Ortolano, PLANNING MANAGER 12/14/2020 M17.12 Unilateral primary osteoarthriti s, left knee Danamarie Ortolano, PLANNING MANAGER 12/12/2020 S83.282D Other tear of latera l meniscus, current injury, left knee, subsequent encounter Dominique Redmond, MSPT 12/12/2020 M17.12 Unilateral primary osteoarthriti s, left knee Dominique Redmond, [facility] [place] 12/05/2020 S83.282D Other tear of latera l meniscus, current injury, left knee, subsequent encounter Danamarie Ortolano, PLANNING MANAGER 12/05/2020 M17.12 Unilateral primary osteoarthriti s, left knee Danamarie Ortolano, PLANNING MANAGER 11/30/2020 S83.282D Other tear of latera l meniscus, current injury, left knee, subsequent encounter Danamarie Ortolano, PLANNING MANAGER 11/30/2020 M17.12 Unilateral primary osteoarthriti s, left knee Danamarie Ortolano, PLANNING MANAGER 11/28/2020 S83.282D Other tear of latera l meniscus, current injury, left knee, subsequent encounter Danamarie Ortolano, PLANNING MANAGER 11/28/2020 M17.12 Unilateral primary osteoarthriti s, left knee Danamarie Ortolano, PLANNING MANAGER 11/22/2020 S83.282D Other tear of latera l meniscus, current injury, left knee, subsequent encounter Dominique Redmond, MSPT 11/22/2020 M17.12 Unilateral primary osteoarthriti s, left knee Dominique Redmond, [facility] [place] 11/20/2020 S83.282D Other tear of latera l meniscus, current injury, left knee, subsequent encounter Danamarie Ortolano, PLANNING MANAGER 11/20/2020 M17.12 Unilateral primary osteoarthriti s, left knee Danamarie Ortolano, PLANNING MANAGER 11/13/2020 S83.282D Other tear of latera l meniscus, current injury, left knee, subsequent encounter Danamarie Ortolano, PLANNING MANAGER 11/13/2020 M17.12 Unilateral primary osteoarthriti s, left knee Danamarie Ortolano, PLANNING MANAGER 10/10/2020 S83.282D Other tear of latera l meniscus, current injury, left knee, subsequent encounter Danamarie Ortolano, PLANNING MANAGER 10/10/2020 M17.12 Unilateral primary osteoarthriti s, left knee Danamarie Ortolano, PLANNING MANAGER 10/08/2020 S83.282D Other tear of latera l meniscus, current injury, left knee, subsequent encounter Danamarie Ortolano, PLANNING MANAGER 10/08/2020 M17.12 Unilateral primary osteoarthriti s, left knee Danamarie Ortolano, PLANNING MANAGER 10/03/2020 S83.282D Other tear of latera l meniscus, current injury, left knee, subsequent encounter Dominique Redmond, MSPT 10/03/2020 M17.12 Unilateral primary osteoarthriti s, left knee Dominique Redmond, [facility] [place] 10/01/2020 S83.282D Other tear of latera l meniscus, current injury, left knee, subsequent encounter Danamarie Ortolano, PLANNING MANAGER 10/01/2020 M17.12 Unilateral primary osteoarthriti s, left knee Danamarie Ortolano, PLANNING MANAGER 09/26/2020 S83.282D Other tear of latera l meniscus, current injury, left knee, subsequent encounter Danamarie Ortolano, PLANNING MANAGER 09/26/2020 M17.12 Unilateral primary osteoarthriti s, left knee Danamarie Ortolano, PLANNING MANAGER 09/24/2020 S83.282D Other tear of latera l meniscus, current injury, left knee, subsequent encounter Danamarie Ortolano, PLANNING MANAGER 09/24/2020 M17.12 Unilateral primary osteoarthriti s, left knee Danamarie Ortolano, PLANNING MANAGER 09/19/2020 S83.282D Other tear of latera l [...] Future Appointment(s):* 12/28/2020 2:00 pm - Colby Bustillo, PLANNING MANAGER at Physical Therapy * 12/25/2020 2:00 pm - Colby Bustillo, PLANNING MANAGER at Physical Therapy * 12/20/2020 4:30 pm - Colby Bustillo, PLANNING MANAGER at Physical Therapy * 12/21/2020 11:00 am - Deana Baker MD at [place] Functional Status Description No Information Available Mental Status Description No Information Available Referrals Refer to Dr Reason for Referral Status Appt Date Colby Bustillo, PLANNING MANAGER PT AUTH GOOD FOR EVAL THAN AUTH DUE TO MED NESS. SS Created [address] [place] [phone] Roseanne Baron MD PT - UNL VISITS OK'D FOR L K NEE FROM 12/03-, RESP# [id number]. SS Created [address] [place] [address] [address] [place] [phone] Roseanne Baron MD PT BASED ON MED. NECC TO PT DEPT. NT Cre ated [address] [place] [address] [phone] Roseanne Baron MD MRI NO AUTH REQUIRED FOR MRI OF LEFT KNEE ([id number]) TO MRI. ERNESTO Created [address] [place] [phone] Roseanne Baron MD MRI NO AUTH REQUIRED FOR MRI OF LEFT KNEE ([id number]) TO MRI. ERNESTO Created [address] [place] [phone]
--- OUTSIDE RECORDS SUMMARY | 2021-01-11 09:31 | CCD | Continuity of Care Document ---
Author Author Roberta BUSTILLO [facility] Organization Unknown Address [address] [address] Phone [phone] Care Team Providers Care Oncology Physician Assistant Name Role Phone Magalis Reynoso [facility] AUTM Problems Description No Information Available [...] Available Procedures Date Code Description Status 12/17/2020 51031 Therapeutic Procedure, Each 15 M inutes Completed 12/14/2020 16872 Therapeutic Procedure, Each 15 M inutes Completed 12/12/2020 72285 Therapeutic Procedure, Each 15 M inutes Completed 12/05/2020 50242 Therapeutic Procedure, Each 15 M inutes Completed 11/30/2020 94147 Therapeutic Procedure, Each 15 M inutes Completed 11/28/2020 31195 Therapeutic Procedure, Each 15 M inutes Completed 11/22/2020 64564 Therapeutic Procedure, Each 15 M inutes Completed 11/20/2020 93486 Therapeutic Procedure, Each 15 M inutes Completed 11/13/2020 49414 Therapeutic Procedure, Each 15 M inutes Completed 10/10/2020 14257 Therapeutic Procedure, Each 15 M inutes Completed 10/08/2020 01146 Therapeutic Procedure, Each 15 M inutes Completed 10/03/2020 50504 Therapeutic Procedure, Each 15 M inutes Completed 10/01/2020 81548 Therapeutic Procedure, Each 15 M inutes Completed 09/26/2020 81999 Therapeutic Procedure, Each 15 M inutes Completed 09/24/2020 46430 Therapeutic Procedure, Each 15 M inutes Completed 09/19/2020 53910 Physical Therapy Eval - Low Comp lexity Completed 08/20/2020 26620 MRI Lower Extremity Any Joint Co mpleted 08/20/2020 88042 MRI Lower Extremity Any Joint Co mpleted [...] injury, left knee, subsequent encounter Danamarie Ortolano, MASTER PRINTER 12/17/2020 M17.12 Unilateral primary osteoarthriti s, left knee Danamarie Ortolano, MASTER PRINTER 12/14/2020 S83.282D Other tear of latera l meniscus, current injury, left knee, subsequent encounter Danamarie Ortolano, MASTER PRINTER 12/14/2020 M17.12 Unilateral primary osteoarthriti s, left knee Danamarie Ortolano, MASTER PRINTER 12/12/2020 S83.282D Other tear of latera l meniscus, current injury, left knee, subsequent encounter Dominique Redmond, MSPT 12/12/2020 M17.12 Unilateral primary osteoarthriti s, left knee [facility]ique Redmond, [facility] 12/05/2020 S83.282D Other tear of latera l meniscus, current injury, left knee, subsequent encounter Danamarie Ortolano, MASTER PRINTER 12/05/2020 M17.12 Unilateral primary osteoarthriti s, left knee Danamarie Ortolano, MASTER PRINTER 11/30/2020 S83.282D Other tear of latera l meniscus, current injury, left knee, subsequent encounter Danamarie Ortolano, MASTER PRINTER 11/30/2020 M17.12 Unilateral primary osteoarthriti s, left knee Danamarie Ortolano, MASTER PRINTER 11/28/2020 S83.282D Other tear of latera l meniscus, current injury, left knee, subsequent encounter Danamarie Ortolano, MASTER PRINTER 11/28/2020 M17.12 Unilateral primary osteoarthriti s, left knee Danamarie Ortolano, MASTER PRINTER 11/22/2020 S83.282D Other tear of latera l meniscus, current injury, left knee, subsequent encounter Dominique Redmond, MSPT 11/22/2020 M17.12 Unilateral primary osteoarthriti s, left knee Dominique Redmond, [facility] 11/20/2020 S83.282D Other tear of latera l meniscus, current injury, left knee, subsequent encounter Danamarie Ortolano, MASTER PRINTER 11/20/2020 M17.12 Unilateral primary osteoarthriti s, left knee Danamarie Ortolano, MASTER PRINTER 11/13/2020 S83.282D Other tear of latera l meniscus, current injury, left knee, subsequent encounter Danamarie Ortolano, MASTER PRINTER 11/13/2020 M17.12 Unilateral primary osteoarthriti s, left knee Danamarie Ortolano, MASTER PRINTER 10/10/2020 S83.282D Other tear of latera l meniscus, current injury, left knee, subsequent encounter Danamarie Ortolano, MASTER PRINTER 10/10/2020 M17.12 Unilateral primary osteoarthriti s, left knee Danamarie Ortolano, MASTER PRINTER 10/08/2020 S83.282D Other tear of latera l meniscus, current injury, left knee, subsequent encounter Danamarie Ortolano, MASTER PRINTER 10/08/2020 M17.12 Unilateral primary osteoarthriti s, left knee Danamarie Ortolano, MASTER PRINTER 10/03/2020 S83.282D Other tear of latera l meniscus, current injury, left knee, subsequent encounter Dominique Redmond, MSPT 10/03/2020 M17.12 Unilateral primary osteoarthriti s, left knee Dominique Redmond, [facility] 10/01/2020 S83.282D Other tear of latera l meniscus, current injury, left knee, subsequent encounter Danamarie Ortolano, MASTER PRINTER 10/01/2020 M17.12 Unilateral primary osteoarthriti s, left knee Danamarie Ortolano, MASTER PRINTER 09/26/2020 S83.282D Other tear of latera l meniscus, current injury, left knee, subsequent encounter Danamarie Ortolano, MASTER PRINTER 09/26/2020 M17.12 Unilateral primary osteoarthriti s, left knee Danamarie Ortolano, MASTER PRINTER 09/24/2020 S83.282D Other tear of latera l meniscus, current injury, left knee, subsequent encounter Danamarie Ortolano, MASTER PRINTER 09/24/2020 M17.12 Unilateral primary osteoarthriti s, left knee Danamarie Ortolano, MASTER PRINTER 09/19/2020 S83.282D Other tear of latera l [...] Appointment(s):* 12/28/2020 2:00 pm - Colby Bustillo, MASTER PRINTER at Physical Therapy * 12/25/2020 2:00 pm - Colby Bustillo, MASTER PRINTER at Physical Therapy * 12/20/2020 4:30 pm - Colby Bustillo, MASTER PRINTER at Physical Therapy * 12/21/2020 11:00 am - Deana Baker MD at [place] Functional Status Description No Information Available Mental Status Description No Information Available Referrals Refer to Dr Reason for Referral Status Appt Date Colby Bustillo, MASTER PRINTER PT AUTH GOOD FOR EVAL THAN AUTH DUE TO MED NESS. SS Created [address] [place] [phone] Roseanne Baron MD PT - UNL VISITS OK'D FOR L K NEE FROM 12/03-, RESP# [id number]. SS Created [address] [place] [address] [place] [phone] Roseanne Baron MD PT BASED ON MED. NECC TO PT DEPT. NT Cre ated [address] [place] [address] [phone] Roseanne Baron MD MRI NO AUTH REQUIRED FOR MRI OF LEFT KNEE ([id number]) TO MRI. ERNESTO Created [address] [place] [address] [phone] Roseanne Baron MD MRI NO AUTH REQUIRED FOR MRI OF LEFT KNEE ([id number]) TO MRI. ERNESTO Created [address] [place] [phone]
--- OUTSIDE RECORDS SUMMARY | 2021-01-11 09:31 | CCD | Continuity of Care Document ---
Author Author Roberta RIGGS MD Organization Unknown Address [address] [address] Phone [phone] Care Team Providers Care Medical Administrative Technician Name Role Phone Magalis Reynoso AUTM AUTM Unavailable AUTM Unavailable Problems Active Problems Provider Date Allergic asthma without status asthmaticus Danny simons M.D. Onset: 12/18/2020 Social History Type Date Description Comments Sex Unknown ETOH Use Rarely Tobacco Use Reviewed: 12/19/20 Patient has never smoked Recreational Drug Use Denies Drug Use Smoking Status Reviewed: 12/19/20 Patient has never smoked Allergies, Adverse Reactions, Alerts Active Allergies Reaction Severity Comments Date Clindamycin rash 02/16/2020 Bactrim rash 02/16/2020 Vancomycin rash 02/16/2020 Erythromycin rash 02/16/2020 Sulfa rash 02/16/2020 Naproxen rash 02/16/2020 Cephalexin rash 02/16/2020 Celebrex Hives, Itching, swelling Amoxicillin / Clavulanate rash Medications Active Medications SIG Qnty Indications Ordering Provide r Date Sucralfate 1GM/10ML Suspension 10 milliliters by mouth half an hour before meals, and at bedtime. (3 times daily) ( if not covered give tablets) 1260ml K21.00 Danny simons M.D. 12/18/2020 Prednisone 20mg Tablets 2 tablets by mouth once daily x 5 days 10tabs Cheyenne Culver, N.P. 12/05/19 21 Albuterol Sulfate HFA 108(90Base) mcg/Act Aerosol Inhale 2 Puffs By Mouth 4 Times A Day as Needed 25.5gm Cheyenne Culver, N.P. Montelukast Sodium 10mg Tablets 1 tab by mouth every day 90tabs Cheyenne Culver, N.P. Advair HFA 230-21mcg/Act Aerosol 2 puff twice a day 36gm Cheyenne Culver, N.P. Baclofen 10mg Tablets 1tab po prn Unknown Acetaminophen-Codeine #3 300-30mg Tablets 2tabs po qhs prn Unknown Omeprazole 40mg Capsules DR 1cap po qam Unknown Fluticasone Propionate Nasal [place] 50mcg/Act Suspension 1 spray in each nostril daily Unknown Loratadine 10mg Capsules 1cap po qam Unknown Cholestyramine 4gm Packet prn Unknown Alendronate Sodium 70mg Tablets weekly Unknown History Medications Prednisone 20mg Tablets 2 tablets by mouth once daily x 5 days 10tabs Cheyenne Culver, N.P. 07/19/20 20 - 12/05/2020 Immunizations CPT Code Status Date Vaccine Lot # [id number] Given 07/06/2019 Afluria, Quadrivalent, 0.5ml , [facility]# [id number] Vital Signs Date Vital Result Comment 12/19/2020 12:59pm Height 61 inches 5'1" Weight 168.00 lb BMI (Body Mass Index) 31.7 kg/m2 [place] Body Weight 105 lb Weight 76.205 kg BSA (Body Surface Area) 1.75 m2 12/18/2020 2:33pm BP Systolic 126 mmHg BP Diastolic 80 mmHg Height 61 inches 5'1" Weight 170.00 lb BMI (Body Mass Index) 32.1 kg/m2 [place] Body Weight 105 lb Weight 77.112 kg BSA (Body Surface Area) 1.76 m2 Results Test Acquired Date Facility Test Result H/L Range Note Laboratory test finding 12/18/2020 [facility] Main Lab [address] [place] [address] [phone] Tissue Transglutaminase Iga <pending> Liver Profile 12/18/2020 [facility] Main Lab [address] [place] [address] [phone] Ast/Sgot 13 U/L Normal 7-37 Alt/SGPT 19 U/L Normal 12-78 Alkaline Phosphatase 74 U/L Normal 45-117 Bilirubin,Total 0.6 mg/dL Normal 0.2-1.0 Bilirubin,Direct 0.2 mg/dL Normal 0.0-0.2 Total Protein 7.7 GM/DL Normal 6.4-8.2 Albumin 4.0 GM/DL Normal 3.2-5.2 Albumin/Globulin Ratio 1.1 Low 1.2-2.2 CBC With Differential 12/18/2020 [facility] Main Lab [address] [place] [address] [id number] [phone] White Blood Count 8.6 10 Normal 4.0-10.0 Red Blood Count 4.76 10 Normal 4.00-5.40 Hemoglobin 15.3 g/dL Normal 12.0-15.5 Hematocrit 46.2 % Normal 36.0-47.0 Mean Corpuscular Volume 97.1 fl High 80.0-96.0 Mean Corpuscular Hemoglobin 32.1 pg Normal 27.0-33.0 Mean Corpuscular HGB Conc 33.1 g/dL Normal 32.0-36.5 Red Cell Distribution Width 13.2 % Normal 11.5-14.5 Platelet Count, Automated 351 10 Normal 150-450 Neutrophils % 63.1 % Normal 36.0-66.0 Lymph % 26.5 % Normal 24.0-44.0 [place] % 8.3 % High 0.0-5.0 Eos % 1.4 % Normal 0.0-3.0 Baso % 0.5 % Normal 0.0-1.0 Immature Granulocyte % 0.2 % Normal 0-3.0 Nucleated Red Blood Cell % 0.0 % Normal 0-0 Neutrophils # 5.4 10 Normal 1.5-8.5 Lymph # 2.3 10 Normal 1.5-5.0 [place] # 0.7 10 Normal 0.0-0.8 Eos # 0.1 10 Normal 0.0-0.5 Baso # 0.0 10 Normal 0.0-0.2 Total Iron Binding Capacit 12/18/2020 [facility] Main Lab [address] [place] [address] [phone] Iron (Fe) 58 g/dL Normal 50-170 Total Iron Binding Capacity 359 g/dL Normal 250-450 Percent Saturation 16.2 % Normal 13.2-45.0 BUN & Creatinine (SMC) 12/18/2020 [facility] Main Lab [address] [place], [place] [id number] [phone] Blood Urea Nitrogen 13 mg/dL Normal 7-18 Creatinine With GFR 12/18/2020 [facility] Main Lab [address] [place], [place] [id number] [phone] Creatinine For GFR 0.91 mg/dL Normal 0.55-1.30 Glomerular Filtration Rate > 60.0 Normal >60 1 Laboratory test finding 12/18/2020 [facility] Main Lab [address] [place] [address] [phone] Vitamin B12 Level 481 pg/mL Normal 247-911 2 1 Units are mL/min/1.73 m2 Chronic Kidney Disease Staging per NKF: Stage I & II GFR >=60 Normal to Mildly Decreased Stage III GFR 30-59 Moderately Decreased Stage IV GFR 15-29 Severely Decreased Stage V GFR <15 Very Little GFR Left ESRD GFR <15 on GUIDANCE COUNSELOR 2 VITAMIN B12 NORMAL RANGE NORMAL 247 - 911 PG/ML INDETERMINATE 211 - 246 PG/ML DEFICIENT LESS THAN 211 PG/ML Procedures Date Code Description Status 07/19/2020 73183 Spirometry Completed Medical Devices Description No Information Available Encounters Type Date Location Provider Dx Diagnosis Office Visit 07/19/2020 2:45p [facility] Pulmonary/Thoracic Vicenta Culver, N.P. R06.2 Wheezing J45.40 Moderate persistent asthma, uncomplicated Assessments Date Code Description Provider 12/18/2020 K21.00 Gastro-esophageal re flux disease with esophagitis, without bleeding Danny Heaton M.D. 12/18/2020 R13.10 Dysphagia, unspecified Danny Heaton M.D. 12/18/2020 R10.10 Upper abdominal pain, unspecifie d Danny Heaton M.D. 12/18/2020 R19.7 Diarrhea, unspecified Danny Heaton M.D. 07/19/2020 R06.2 Wheezing Cheyenne Culver N .P. 07/19/2020 J45.40 Moderate persistent asthma, unco mplicated Cheyenne Culver NJaun Plan of Treatment Future Appointment(s):* 01/21/2021 2:15 pm - Cheyenne Culver N.P. at [facility] Pulmonary/Thoracic 12/18/2020 - Danny Heaton M.D.* K21.00 Gastro-esophageal reflux disease with esophagitis, without bleeding * R13.10 Dysphagia, unspecified * R10.10 Upper abdominal pain, unspecified * R19.7 Diarrhea, unspecified * * New Medication:* Sucralfate 1 GM/10ML * New Labs:* Stool For Polys, Ordered: 12/18/20 * Calprotectin Stool Sendout, Ordered: 12/18/20 * Pancreatic Elastase Stool Sendout, Ordered: 12/18/20 * Fat Fecal Qualitative, Ordered: 12/18/20 * Clostridium Difficile PCR, Ordered: 12/18/20 * Recommendations:* -- Omeprazole and sucralfate for now. -- Educated on antireflux measures. -- Blood and stool tests. -- Will schedule for EGD and COlonoscopy Functional Status Functional Condition Comment Date Status Independent with all ADL's Activ e Mental Status Mental Condition Comment Date Status Cognitive ability not impaired A ctive Referrals Refer to Reason for Referral Status Appt Date Danny Heaton M.D. GERD & HX OF ANEMIA Created 12/12/[address] [place] [address], [address] [address] [phone] Geovani Fontaine M.D. SOURC[employer] RECURRENT SINUSITIS ALSO BILAT FLUID LEVEL BEHIND TM REF M JOSUE INS MEDICARE/MEDICAID Created 12/13/[address] [place] [address] [id number] [phone]
--- OUTSIDE RECORDS SUMMARY | 2021-01-11 09:31 | CCD | Continuity of Care Document ---
Author Author Roberta CULVER N.PBrie Organization Unknown Address [address] [place] [address] Phone [phone] Care Team Providers Care Sand Mill Grinder Name Role Phone Magalis Reynoso AUTM AUTM Unavailable AUTM Unavailable Problems Active Problems Provider Date Allergic asthma without status asthmaticus Danny simons M.D. Onset: 12/18/2020 Social History Type Date Description Comments Sex Unknown ETOH Use Rarely Tobacco Use Reviewed: 12/19/20 Patient has never smoked Recreational Drug Use Denies Drug Use Smoking Status Reviewed: 12/28/20 Patient has never smoked Allergies, Adverse Reactions, Alerts Active Allergies Reaction Severity Comments Date Clindamycin rash 02/16/2020 Bactrim rash 02/16/2020 Vancomycin rash 02/16/2020 Erythromycin rash 02/16/2020 Sulfa rash 02/16/2020 Naproxen rash 02/16/2020 Cephalexin rash 02/16/2020 Celebrex Hives, Itching, swelling Amoxicillin / Clavulanate rash Medications Active Medications SIG Qnty Indications Ordering Provide r Date Prednisone 10mg Tablets 40mg po qd x 4 days then 30mg qd x 4 days then 20mg qd x 4 days then 10mg qd x 4 days and stop 40tabs J45.41 Cheyenne Culver N.P. 12/28/2020 Suprep Bowel Prep Kit 17.5-3.13-1.6GM/177ML Solution use as directed for the colonoscopy prep aration. ( if not fully covered by insurance, please fill gavilyte script). 354ml Danny Heaton M.D. 12/26/2020 Gavilyte-N With Flavor Pack 420gm Solution Rec drink the liquid as per the pre-procedur e instructions. ( fill this script only if clenpiq is not covered by insurance). 4000ml Danny Heaton M.D. 12/25/2020 Clenpiq 10-3.5-12mg-GM -GM/160ML S olution follow pre-procedure instructions. start day before procedure. (if not covered by insurance please fill gavilyte script). 320ml Melissa Heaton M.D. 12/25/[address] take 4 tablets together as per bowel preparation instructions. 4tabs Danny Heaton M.D. 12/25/2020 Sucralfate 1GM/10ML Suspension 10 milliliters by mouth half an hour before meals, and at bedtime. (3 times daily) ( if not covered give tablets) 1260ml K21.00 Danny simons M.D. 12/18/2020 Alendronate Sodium 70mg Tablets weekly Unknown Cholestyramine 4gm Packet prn Unknown Loratadine 10mg Capsules 1cap po qam Unknown Fluticasone Propionate Nasal [place] 50mcg/Act Suspension 1 spray in each nostril daily Unknown Omeprazole 40mg Capsules DR 1cap po qam Unknown Acetaminophen-Codeine #3 300-30mg Tablets 2tabs po qhs prn Unknown Baclofen 10mg Tablets 1tab po prn Unknown Advair HFA 230-21mcg/Act Aerosol 2 puff twice a day 36gm PalomoWandaCheyenne, N.P. Montelukast Sodium 10mg Tablets 1 tab by mouth every day 90tabs Wanda [place], N.P. Albuterol Sulfate HFA 108(90Base) mcg/Act Aerosol Inhale 2 Puffs By Mouth 4 Times A Day as Needed 25.5gm Wanda [place], N.P. History Medications Prednisone 20mg Tablets 2 tablets by mouth once daily x 5 days 10tabs Cheyenne Culver, N.P. 12/05/19 - 12/27/2020 Prednisone 20mg Tablets 2 tablets by mouth once daily x 5 days 10taCheyenne Guillen, N.P. 07/19/20 - 12/05/2020 Immunizations CPT Code Status Date Vaccine Lot # [id number] Given 07/06/2019 Afluria, Quadrivalent, 0.5ml , [facility]# [id number] Vital Signs Date Vital Result Comment 12/28/2020 9:06am BP Systolic 120 mmHg BP Diastolic 84 mmHg Heart Rate 113 /min O2 % BldC Oximetry 98 % Room Air Height 61 inches 5'1" Weight 171.00 lb BMI (Body Mass Index) 32.3 kg/m2 [place] Body Weight 105 lb Weight 77.566 kg BSA (Body Surface Area) 1.77 m2 12/19/2020 12:59pm Height 61 inches 5'1" Weight 168.00 lb BMI (Body Mass Index) 31.7 kg/m2 [place] Body Weight 105 lb Weight 76.205 kg BSA (Body Surface Area) 1.75 m2 Results Test Acquired Date Facility Test Result H/L Range Note FVL/Baltazar 12/28/2020 [facility] SEE IMAGE FVC-Pred 3.53 L FVC-Pre 2.11 L FVC-%Pred-Pre 59 L FVC-LLN 2.86 L Fev1-Pred 2.89 L Fev1-Pre 1.63 L Fev1-%Pred-Pre 56 L Fev1-LLN 2.34 L Fev6-Pred 3.47 L Fev6-Pre 2.11 L Fev6-%Pred-Pre 60 L Fev6-LLN 2.82 L Bid0epo-Fedm 83 % Jzb1ypy-Eej 77 % Elh7noa-%Pred-Pre 93 % Oxe6yzl-BOF 73 % Vnm7yxg-Hhyy 98 % Jqg8hfr-Umy 100 % Env7tnr-%Pred-Pre 101 % FEFMax-Pred 6.75 L/E/sec FEFMax-Pre 5.14 L/E/sec FEFMax-%Pred-Pre 76 L/E/sec FEFMax-LLN 5.12 L/E/sec Kcb7716-Kmxe 3.08 L/E/sec Qnf7636-Ijf 1.33 L/E/sec Cdv3531-%Pred-Pre 43 L/E/sec Bmi6441-MIS 1.90 L/E/sec ExpTime-Pre 6.36 sec Qkn0acy3-Gnrr 84 % Uot6ztt0-Guy 77 % Wmc3wig3-%Pred-Pre 92 % Bel9cdd5-PCA 75 % Laboratory test finding 12/21/2020 [facility] Main Lab [address] [place] [address] [phone] Stool Lactoferrin-polys by Ica NEGATIVE Normal 1 Calprotectin Stool Sendout <pending> Pancreatic Elastase Stool Sendout <pending> Fat Fecal Qualitative <pending> Clostridium Difficle By PCR 12/21/2020 [facility] Main Lab [address] [place] [address] [phone] Clostridium Difficile PCR TNP Normal Negati ve 2 Nap1 027 For Cdiff PCR TNP Normal Negative Laboratory test finding 12/18/2020 [facility] Main Lab [address] [place] [address] [phone] Tissue Transglutaminase IgA <2 U/mL Normal 0-3 3 Iga Subclasses 12/18/[address] [address] [phone] IgA Serum (part of Subclasses) 166 mg/dL Normal 8 7-352 Igasub2 121.3 mg/dL Normal 73.2-301.2 Igasub3 23.0 mg/dL Normal 13.4-97.9 Liver Profile 12/18/2020 [facility] [address] [place] [address] [phone] Ast/Sgot 13 U/L Normal 7-37 Alt/SGPT 19 U/L Normal 12-78 Alkaline Phosphatase 74 U/L Normal 45-117 Bilirubin,Total 0.6 mg/dL Normal 0.2-1.0 Bilirubin,Direct 0.2 mg/dL Normal 0.0-0.2 Total Protein 7.7 GM/DL Normal 6.4-8.2 Albumin 4.0 GM/DL Normal 3.2-5.2 Albumin/Globulin Ratio 1.1 Low 1.2-2.2 CBC With Differential 12/18/2020 [facility] Main Lab [address] [place], [place] [phone] White Blood Count 8.6 10 Normal 4.0-10.0 [...] 36.0-66.0 Lymph % 26.5 % Normal 24.0-44.0 [place] % 8.3 % High 0.0-5.0 Eos % 1.4 % Normal 0.0-3.0 Baso % 0.5 % Normal 0.0-1.0 Immature Granulocyte % 0.2 % Normal 0-3.0 Nucleated Red Blood Cell % 0.0 % Normal 0-0 Neutrophils # 5.4 10 Normal 1.5-8.5 Lymph # 2.3 10 Normal 1.5-5.0 [place] # 0.7 10 Normal 0.0-0.8 Eos # 0.1 10 Normal 0.0-0.5 Baso # 0.0 10 Normal 0.0-0.2 Total Iron Binding Capacit 12/18/2020 [facility] Main Lab [address] [place], [place] [id number] [phone] Iron (Fe) 58 g/dL Normal 50-170 Total Iron Binding Capacity 359 g/dL Normal 250-450 Percent Saturation 16.2 % Normal 13.2-45.0 BUN & Creatinine (SMC) 12/18/2020 [facility] Main Lab [address] [place] [address] [phone] Blood Urea Nitrogen 13 mg/dL Normal 7-18 Creatinine With GFR 12/18/2020 [facility] n[facility] Main Lab [address] [place] [address] [phone] Creatinine For GFR 0.91 mg/dL Normal 0.55-1.30 Glomerular Filtration Rate > 60.0 Normal >60 4 Laboratory test finding 12/18/2020 [facility] Main Lab [address] [place] [address] [phone] Vitamin B12 Level 481 pg/mL Normal 247-911 5 1 2 Clostridium difficile testin g will only be performed on unformed diarrhea stools. Only one specimen will be tested daily. Testing stool specimens from patients who do not have CDI symptoms detects asymptomatic colonized patients (up to 30% of hospitalized patients are colonized with C. difficile). Patients with false positive results may be given unnecessary treatment, placed on contact isolation, and be at increased risk of vancomycin resistant enterococci. Please contact Infectious Disease Specialist with questions. 3 Negative 0 - 3 Weak Positive 4 - 10 Positive >10 . Tissue Transglutaminase (tTG) has been identified as the endomysial antigen. Studies have demonstr- ated that endomysial IgA antibodies have over 99% specificity for gluten sensitive enteropathy. Performed at: - [facility] [address] [id number] Front Load Trash Truck Driver: Meghana Patricio MD, Phone: [phone] Performed at: - [facility] [id number] Front Load Trash Truck Driver: Kayode Soto MD, Phone: [phone] Units are mL/min/1.73 m2 Chronic Kidney Disease Staging per NKF: Stage I & II GFR >=60 Normal to Mildly Decreased Stage III GFR 30-59 Moderately Decreased Stage IV GFR 15-29 Severely Decreased Stage V GFR <15 Very Little GFR Left ESRD GFR <15 on PLATFORM ATTENDANT 5 VITAMIN B12 NORMAL RANGE NORMAL 247 - 911 PG/ML INDETERMINATE 211 - 246 PG/ML DEFICIENT LESS THAN 211 PG/ML Procedures Date Code Description Status 12/19/2020 49058 Endoscopy Nasal Diagnostic Compl eted 07/19/2020 73345 Spirometry Completed Medical Devices Description No Information Available Encounters Type Date Location Provider Dx Diagnosis Office Visit 12/19/2020 1:00p [facility] Matthew smith MD H92.03 Otalgia, bilateral J31.0 Chronic rhinitis J34.2 Deviated nasal septum Office Visit 07/19/2020 2:45p [facility] Pulmonary/Thoracic Vicenta Culver N.PBrie R06.2 Wheezing J45.40 Moderate persistent asthma, uncomplicated Assessments Date Code Description Provider 12/28/2020 J45.41 Moderate persistent asthma with (acute) exacerbation Cheyenne Culver N.P. 12/19/2020 H92.03 Otalgia, bilateral Matthew root MD 12/19/2020 J31.0 Chronic rhinitis Matthew Atkinson MD 12/19/2020 J34.2 Deviated nasal septum Matthew smith MD 12/18/2020 K21.00 Gastro-esophageal re flux disease with esophagitis, without bleeding Danny Heaton M.D. 12/18/2020 R13.10 Dysphagia, unspecified Danny Heaton M.D. 12/18/2020 R10.10 Upper abdominal pain, unspecifie d Danny Heaton M.D. 12/18/2020 R19.7 Diarrhea, unspecified Danny Heaton M.D. 07/19/2020 R06.2 Wheezing Cheyenne Culver N .P. 07/19/2020 J45.40 Moderate persistent asthma, unco mplicated Cheyenne Culver N.Beatriz. Plan of Treatment Future Appointment(s):* 04/23/2021 2:45 pm - Cheyenne Culver NJaun at [facility] Pulmonary/Thoracic * 01/16/2021 3:00 pm - Danny Heaton M.D. at [facility] * 01/11/2021 8:05 am - Danny Heaton M.D. at [facility] * 01/21/2021 2:15 pm - Cheyenne Culver NJaun at [facility] Pulmonary/Thoracic 12/28/2020 - Cheyenne Culver, N.P.* J45.41 Moderate persistent asthma with (acute) exacerbation * * New Medication:* Prednisone 10 mg * Follow up:* 1. Please give patient prednisone calendar. 2. Follow up in 3-4 months with baltazar/FVL. Functional Status Functional Condition Comment Date Status Independent with all ADL's Activ e Mental Status Mental Condition Comment Date Status Cognitive ability not impaired A ctive Referrals Refer to Reason for Referral Status Appt Date Danny Heaton M.D. GERD & HX OF ANEMIA Created 12/12/2020 [address] [facility], [address] [place] [address] [phone] Matthew Atkinson M.D. ADJUNCT INSTRUCTOR CHEMISTRY RECURRENT SINUSITIS ALSO BILAT FLUID LEVEL BEHIND TM REF Leny REYNOSO INS MEDICARE/MEDICAID Closed 12/13/2020 [facility] ENT [address] [facility] [address] [place] [address] [phone]
--- OUTSIDE RECORDS SUMMARY | 2021-01-11 09:31 | CCD ---
Continuity of Care Document (CCD) Created on: 12/19/2020 Roberta Fletcher External Reference #: [id number] : [id number] Sex: Female Author Author Roberta BUSTILLO [facility] Organization Unknown Address [address] [address] Phone [phone] Care Team Providers Care Heading And Priming Tool Setter Name Role Phone Magalis Reynoso [facility] AUTM Problems Description No Information Available Social [...] Available Procedures Date Code Description Status 12/17/2020 63200 Therapeutic Procedure, Each 15 M inutes Completed 12/14/2020 97192 Therapeutic Procedure, Each 15 M inutes Completed 12/12/2020 22464 Therapeutic Procedure, Each 15 M inutes Completed 12/05/2020 85310 Therapeutic Procedure, Each 15 M inutes Completed 11/30/2020 63506 Therapeutic Procedure, Each 15 M inutes Completed 11/28/2020 43120 Therapeutic Procedure, Each 15 M inutes Completed 11/22/2020 86590 Therapeutic Procedure, Each 15 M inutes Completed 11/20/2020 06777 Therapeutic Procedure, Each 15 M inutes Completed 11/13/2020 92500 Therapeutic Procedure, Each 15 M inutes Completed 10/10/2020 40630 Therapeutic Procedure, Each 15 M inutes Completed 10/08/2020 37977 Therapeutic Procedure, Each 15 M inutes Completed 10/03/2020 17952 Therapeutic Procedure, Each 15 M inutes Completed 10/01/2020 83111 Therapeutic Procedure, Each 15 M inutes Completed 09/26/2020 37667 Therapeutic Procedure, Each 15 M inutes Completed 09/24/2020 93749 Therapeutic Procedure, Each 15 M inutes Completed 09/19/2020 55671 Physical Therapy Eval - Low Comp lexity Completed 08/20/2020 85636 MRI Lower Extremity Any Joint Co mpleted 08/20/2020 26837 MRI Lower Extremity Any Joint Co mpleted [...] injury, left knee, subsequent encounter Danamarie Ortolano, STATISTICAL TECHNICIAN 12/17/2020 M17.12 Unilateral primary osteoarthriti s, left knee Danamarie Ortolano, STATISTICAL TECHNICIAN 12/14/2020 S83.282D Other tear of latera l meniscus, current injury, left knee, subsequent encounter Danamarie Ortolano, STATISTICAL TECHNICIAN 12/14/2020 M17.12 Unilateral primary osteoarthriti s, left knee Danamarie Ortolano, STATISTICAL TECHNICIAN 12/12/2020 S83.282D Other tear of latera l meniscus, current injury, left knee, subsequent encounter Dominique Redmond, MSPT 12/12/2020 M17.12 Unilateral primary osteoarthriti s, left knee [facility], [facility] 12/05/2020 S83.282D Other tear of latera l meniscus, current injury, left knee, subsequent encounter Danamarie Ortolano, STATISTICAL TECHNICIAN 12/05/2020 M17.12 Unilateral primary osteoarthriti s, left knee Danamarie Ortolano, STATISTICAL TECHNICIAN 11/30/2020 S83.282D Other tear of latera l meniscus, current injury, left knee, subsequent encounter Danamarie Ortolano, STATISTICAL TECHNICIAN 11/30/2020 M17.12 Unilateral primary osteoarthriti s, left knee Danamarie Ortolano, STATISTICAL TECHNICIAN 11/28/2020 S83.282D Other tear of latera l meniscus, current injury, left knee, subsequent encounter Danamarie Ortolano, STATISTICAL TECHNICIAN 11/28/2020 M17.12 Unilateral primary osteoarthriti s, left knee Danamarie Ortolano, STATISTICAL TECHNICIAN 11/22/2020 S83.282D Other tear of latera l meniscus, current injury, left knee, subsequent encounter Dominique Redmond, MSPT 11/22/2020 M17.12 Unilateral primary osteoarthriti s, left knee Dominique Redmond, [facility] 11/20/2020 S83.282D Other tear of latera l meniscus, current injury, left knee, subsequent encounter Danamarie Ortolano, STATISTICAL TECHNICIAN 11/20/2020 M17.12 Unilateral primary osteoarthriti s, left knee Danamarie Ortolano, STATISTICAL TECHNICIAN 11/13/2020 S83.282D Other tear of latera l meniscus, current injury, left knee, subsequent encounter Danamarie Ortolano, STATISTICAL TECHNICIAN 11/13/2020 M17.12 Unilateral primary osteoarthriti s, left knee Danamarie Ortolano, STATISTICAL TECHNICIAN 10/10/2020 S83.282D Other tear of latera l meniscus, current injury, left knee, subsequent encounter Danamarie Ortolano, STATISTICAL TECHNICIAN 10/10/2020 M17.12 Unilateral primary osteoarthriti s, left knee Danamarie Ortolano, STATISTICAL TECHNICIAN 10/08/2020 S83.282D Other tear of latera l meniscus, current injury, left knee, subsequent encounter Danamarie Ortolano, STATISTICAL TECHNICIAN 10/08/2020 M17.12 Unilateral primary osteoarthriti s, left knee Danamarie Ortolano, STATISTICAL TECHNICIAN 10/03/2020 S83.282D Other tear of latera l meniscus, current injury, left knee, subsequent encounter Dominique Redmond, MSPT 10/03/2020 M17.12 Unilateral primary osteoarthriti s, left knee Dominique Redmond, [facility] 10/01/2020 S83.282D Other tear of latera l meniscus, current injury, left knee, subsequent encounter Danamarie Ortolano, STATISTICAL TECHNICIAN 10/01/2020 M17.12 Unilateral primary osteoarthriti s, left knee Danamarie Ortolano, STATISTICAL TECHNICIAN 09/26/2020 S83.282D Other tear of latera l meniscus, current injury, left knee, subsequent encounter Danamarie Ortolano, STATISTICAL TECHNICIAN 09/26/2020 M17.12 Unilateral primary osteoarthriti s, left knee Danamarie Ortolano, STATISTICAL TECHNICIAN 09/24/2020 S83.282D Other tear of latera l meniscus, current injury, left knee, subsequent encounter Danamarie Ortolano, STATISTICAL TECHNICIAN 09/24/2020 M17.12 Unilateral primary osteoarthriti s, left knee Danamarie Ortolano, STATISTICAL TECHNICIAN 09/19/2020 S83.282D Other tear of latera l [...] site of le ft knee, initial encounter Deaan Baker MD Plan of Treatment Future Appointment(s):* 12/28/2020 2:00 pm - Colby Bustillo, STATISTICAL TECHNICIAN at Physical Therapy * 12/25/2020 2:00 pm - Colby Bustillo, STATISTICAL TECHNICIAN at Physical Therapy * 12/20/2020 4:30 pm - Colby Bustillo, STATISTICAL TECHNICIAN at Physical Therapy * 12/21/2020 11:00 am - Deana Baker MD at [place] Functional Status Description No Information Available Mental Status Description No Information Available Referrals Refer to Dr Reason for Referral Status Appt Date Colby Bustillo, STATISTICAL TECHNICIAN PT AUTH GOOD FOR EVAL THAN AUTH DUE TO MED NESS. SS Created [address] [place] [address] [phone] Roseanne Baron MD PT - UNL VISITS OK'D FOR L K NEE FROM 12/03-, RESP# [id number]. SS Created [address] [place] [address] [address] [place] [phone] Roseanne Baron MD PT BASED ON MED. NECC TO PT DEPT. NT Cre ated [address] [place] [address] [phone] Roseanne Baron MD MRI NO AUTH REQUIRED FOR MRI OF LEFT KNEE ([id number]) TO MRI. ERNESTO Created [address] [place] [address] [phone] Roseanne Baron MD MRI NO AUTH REQUIRED FOR MRI OF LEFT KNEE ([id number]) TO MRI. ERNESTO Created [address] [place] [address] [phone]
--- OUTSIDE RECORDS SUMMARY | 2021-01-11 09:31 | CCD | Continuity of Care Document ---
Author Author Roberta OH MD Organization Unknown Address [address] [address] Phone [phone] Care Team Providers Care Sample Driller Name Role Phone Magalis Reynoso VICE PRESIDENT OF FINANCE AUTM Problems Description No Information Available Social [...] Information Available Procedures Date Code Description Status 12/24/2020 74814 X-Ray Hip Unilateral With Pelvis 2-3 Views Completed 12/20/2020 02972 Therapeutic Procedure, Each 15 M inutes Completed 12/17/2020 25225 Therapeutic Procedure, Each 15 M inutes Completed 12/14/2020 67530 Therapeutic Procedure, Each 15 M inutes Completed 12/12/2020 64590 Therapeutic Procedure, Each 15 M inutes Completed 12/05/2020 97186 Therapeutic Procedure, Each 15 M inutes Completed 11/30/2020 79895 Therapeutic Procedure, Each 15 M inutes Completed 11/28/2020 14180 Therapeutic Procedure, Each 15 M inutes Completed 11/22/2020 11570 Therapeutic Procedure, Each 15 M inutes Completed 11/20/2020 39813 Therapeutic Procedure, Each 15 M inutes Completed 11/13/2020 82882 Therapeutic Procedure, Each 15 M inutes Completed 10/10/2020 50190 Therapeutic Procedure, Each 15 M inutes Completed 10/08/2020 67575 Therapeutic Procedure, Each 15 M inutes Completed 10/03/2020 94631 Therapeutic Procedure, Each 15 M inutes Completed 10/01/2020 27969 Therapeutic Procedure, Each 15 M inutes Completed 09/26/2020 83752 Therapeutic Procedure, Each 15 M inutes Completed 09/24/2020 45373 Therapeutic Procedure, Each 15 M inutes Completed 09/19/2020 62587 Physical Therapy Eval - Low Comp lexity Completed 08/20/2020 70265 MRI Lower Extremity Any Joint Co mpleted 08/20/2020 56940 MRI Lower Extremity Any Joint Co mpleted Medical Devices Description No Information Available Encounters Type Date Location Provider Dx Diagnosis Office Visit 12/21/2020 11:00a Meenu Baker MD S8 3.282D Oth tear of lat mensc, current injury, left knee, subs M17.12 Unilateral primary osteoarth ritis, left knee Office Visit 09/11/2020 2:15p Meenu Baker MD S8 3.282A Oth tear of lat mensc, current injury, left knee, init M17.12 Unilateral primary osteoarth ritis, left knee Office Visit 08/15/2020 2:15p Strong Deana Baker MD S8 3.92xA Sprain of unspecified site of left knee, initial encounter Assessments Date Code Description Provider 12/24/2020 M25.551 Pain in right hip Jason Oh MD 12/21/2020 S83.282D Other tear of latera l meniscus, current injury, left knee, subsequent encounter Deana Baker MD 12/21/2020 M17.12 Unilateral primary osteoarthriti s, left knee Deana Baker MD 12/20/2020 S83.282D Other tear of latera l meniscus, current injury, left knee, subsequent encounter Danamarie Ortolano, [employer] 12/20/2020 M17.12 Unilateral primary osteoarthriti s, left knee Danamarie Ortolano, [employer] 12/17/2020 S83.282D Other tear of latera l meniscus, current injury, left knee, subsequent encounter Danamarie Ortolano, [employer] 12/17/2020 M17.12 Unilateral primary osteoarthriti s, left knee Danamarie Ortolano, [employer] 12/14/2020 S83.282D Other tear of latera l meniscus, current injury, left knee, subsequent encounter Danamarie Ortolano, [employer] 12/14/2020 M17.12 Unilateral primary osteoarthriti s, left knee Danamarie Ortolano, [employer] 12/12/2020 S83.282D Other tear of latera l meniscus, current injury, left knee, subsequent encounter [facility], [facility] 12/12/2020 M17.12 Unilateral primary osteoarthriti s, left knee Dominique Redmond, [facility] 12/05/2020 S83.282D Other tear of latera l meniscus, current injury, left knee, subsequent encounter Danamarie Ortolano, [employer] 12/05/2020 M17.12 Unilateral primary osteoarthriti s, left knee Danamarie Ortolano, [employer] 11/30/2020 S83.282D Other tear of latera l meniscus, current injury, left knee, subsequent encounter Danamarie Ortolano, [employer] 11/30/2020 M17.12 Unilateral primary osteoarthriti s, left knee Danamarie Ortolano, [employer] 11/28/2020 S83.282D Other tear of latera l meniscus, current injury, left knee, subsequent encounter Danamarie Ortolano, [employer] 11/28/2020 M17.12 Unilateral primary osteoarthriti s, left knee Danamarie Ortolano, [employer] 11/22/2020 S83.282D Other tear of latera l meniscus, current injury, left knee, subsequent encounter Dominique Redmond, [facility] 11/22/2020 M17.12 Unilateral primary osteoarthriti s, left knee Dominique Redmond, [facility] 11/20/2020 S83.282D Other tear of latera l meniscus, current injury, left knee, subsequent encounter Danamarie Ortolano, [employer] 11/20/2020 M17.12 Unilateral primary osteoarthriti s, left knee Danamarie Ortolano, [employer] 11/13/2020 S83.282D Other tear of latera l meniscus, current injury, left knee, subsequent encounter Danamarie Ortolano, [employer] 11/13/2020 M17.12 Unilateral primary osteoarthriti s, left knee Danamarie Ortolano, [employer] 10/10/2020 S83.282D Other tear of latera l meniscus, current injury, left knee, subsequent encounter Danamarie Ortolano, [employer] 10/10/2020 M17.12 Unilateral primary osteoarthriti s, left knee Danamarie Ortolano, [employer] 10/08/2020 S83.282D Other tear of latera l meniscus, current injury, left knee, subsequent encounter Danamarie Ortolano, [employer] 10/08/2020 M17.12 Unilateral primary osteoarthriti s, left knee Danamarie Ortolano, [employer] 10/03/2020 S83.282D Other tear of latera l meniscus, current injury, left knee, subsequent encounter Dmoinique Redmond, [facility] 10/03/2020 M17.12 Unilateral primary osteoarthriti s, left knee Dominique Redmond, [facility] 10/01/2020 S83.282D Other tear of latera l meniscus, current injury, left knee, subsequent encounter Danamarie Ortolano, [employer] 10/01/2020 M17.12 Unilateral primary osteoarthriti s, left knee Danamarie Ortolano, [employer] 09/26/2020 S83.282D Other tear of latera l meniscus, current injury, left knee, subsequent encounter Danamarie Ortolano, [employer] 09/26/2020 M17.12 Unilateral primary osteoarthriti s, left knee Danamarie Ortolano, [employer] 09/24/2020 S83.282D Other tear of latera l meniscus, current injury, left knee, subsequent encounter Danamarie Ortolano, [employer] 09/24/2020 M17.12 Unilateral primary osteoarthriti s, left knee Danamarie Ortolano, [employer] 09/19/2020 S83.282D Other tear of latera l meniscus, current injury, left knee, subsequent encounter Dominique Redmond, MSPT 09/19/2020 M17.12 Unilateral primary osteoarthriti s, left knee Dominique Redmond, [facility] 09/11/2020 S83.282A Other tear of latera [...] Treatment Future Appointment(s):* 12/28/2020 2:00 pm - Danamarie Ortolano, [employer] at Physical Therapy * 12/25/2020 2:00 pm - Danamarie Ortolano, [employer] at Physical Therapy 12/24/2020 - Jason Oh MD* M25.551 Pain in right hip* New Xrays:* MRI Right Hip, Ordered: 12/24/20 * Follow up:* with [facility] after mri for results Functional Status Description No Information Available Mental Status Description No Information Available Referrals Refer to Dr Reason for Referral Status Appt Date Colby Waller, [employer] PT AUTH GOOD FOR EVAL THAN AUTH DUE TO MED NESS. SS Created [address] [place] [address] [phone] Roseanne Baron MD PT - UNL VISITS OK'D FOR L Adele NEE FROM 12/03-, RESP# [id number]. SS Created [facility] [place] [address] [phone] Roseanne Baron MD PT BASED ON MED. NECC TO PT DEPT. NT Cre ated [address] [place] [address] [phone] Roseanne Baron MD MRI NO AUTH REQUIRED FOR MRI OF LEFT KNEE ([id number]) TO MRI. DG Created [facility] [place] [address] [phone] Roseanne Baron MD MRI NO AUTH REQUIRED FOR MRI OF LEFT KNEE ([id number]) TO MRI. DG Created [facility] [place] [address] [phone]
--- OUTSIDE RECORDS SUMMARY | 2021-01-11 09:31 | CCD | Continuity of Care Document ---
Author Author Roberta BUSTILLO [facility] Organization Unknown Address [address] [address] Phone [phone] Care Team Providers Care Six Sigma Black Trainer Name Role Phone Magalis Reynoso [employer] AUTM Problems Description No Information Available Social [...] Information Available Procedures Date Code Description Status 12/25/2020 53061 Therapeutic Procedure, Each 15 M inutes Completed 12/24/2020 44131 X-Ray Hip Unilateral With Pelvis 2-3 Views Completed 12/20/2020 29602 Therapeutic Procedure, Each 15 M inutes Completed 12/17/2020 37162 Therapeutic Procedure, Each 15 M inutes Completed 12/14/2020 81445 Therapeutic Procedure, Each 15 M inutes Completed 12/12/2020 48022 Therapeutic Procedure, Each 15 M inutes Completed 12/05/2020 28336 Therapeutic Procedure, Each 15 M inutes Completed 11/30/2020 40523 Therapeutic Procedure, Each 15 M inutes Completed 11/28/2020 49608 Therapeutic Procedure, Each 15 M inutes Completed 11/22/2020 83223 Therapeutic Procedure, Each 15 M inutes Completed 11/20/2020 39277 Therapeutic Procedure, Each 15 M inutes Completed 11/13/2020 86525 Therapeutic Procedure, Each 15 M inutes Completed 10/10/2020 68288 Therapeutic Procedure, Each 15 M inutes Completed 10/08/2020 16777 Therapeutic Procedure, Each 15 M inutes Completed 10/03/2020 91341 Therapeutic Procedure, Each 15 M inutes Completed 10/01/2020 81145 Therapeutic Procedure, Each 15 M inutes Completed 09/26/2020 95328 Therapeutic Procedure, Each 15 M inutes Completed 09/24/2020 76053 Therapeutic Procedure, Each 15 M inutes Completed 09/19/2020 26204 Physical Therapy Eval - Low Comp lexity Completed 08/20/2020 75906 MRI Lower Extremity Any Joint Co mpleted 08/20/2020 71469 MRI Lower Extremity Any Joint Co mpleted [...] initial encounter Assessments Date Code Description Provider 12/25/2020 S83.282D Other tear of latera l meniscus, current injury, left knee, subsequent encounter Danamarie Ortolano, CAT OPERATOR 12/25/2020 M17.12 Unilateral primary osteoarthriti s, left knee Danamarie Ortolano, CAT OPERATOR 12/24/2020 M25.551 Pain in right hip Jason Bowden MD 12/21/2020 S83.282D Other tear of latera l meniscus, current injury, left knee, subsequent encounter Deana Baker MD 12/21/2020 M17.12 Unilateral primary osteoarthriti s, left knee Deana Baker MD 12/20/2020 S83.282D Other tear of latera l meniscus, current injury, left knee, subsequent encounter Danamarie Ortolano, CAT OPERATOR 12/20/2020 M17.12 Unilateral primary osteoarthriti s, left knee Danamarie Ortolano, CAT OPERATOR 12/17/2020 S83.282D Other tear of latera l meniscus, current injury, left knee, subsequent encounter Danamarie Ortolano, CAT OPERATOR 12/17/2020 M17.12 Unilateral primary osteoarthriti s, left knee Danamarie Ortolano, CAT OPERATOR 12/14/2020 S83.282D Other tear of latera l meniscus, current injury, left knee, subsequent encounter Danamarie Ortolano, CAT OPERATOR 12/14/2020 M17.12 Unilateral primary osteoarthriti s, left knee Danamarie Ortolano, CAT OPERATOR 12/12/2020 S83.282D Other tear of latera l meniscus, current injury, left knee, subsequent encounter Dominique Redmond, MSPT 12/12/2020 M17.12 Unilateral primary osteoarthriti s, left knee [facility] Redmond, [facility] 12/05/2020 S83.282D Other tear of latera l meniscus, current injury, left knee, subsequent encounter Danamarie Ortolano, CAT OPERATOR 12/05/2020 M17.12 Unilateral primary osteoarthriti s, left knee Danamarie Ortolano, CAT OPERATOR 11/30/2020 S83.282D Other tear of latera l meniscus, current injury, left knee, subsequent encounter Danamarie Ortolano, CAT OPERATOR 11/30/2020 M17.12 Unilateral primary osteoarthriti s, left knee Danamarie Ortolano, CAT OPERATOR 11/28/2020 S83.282D Other tear of latera l meniscus, current injury, left knee, subsequent encounter Danamarie Ortolano, CAT OPERATOR 11/28/2020 M17.12 Unilateral primary osteoarthriti s, left knee Danamarie Ortolano, CAT OPERATOR 11/22/2020 S83.282D Other tear of latera l meniscus, current injury, left knee, subsequent encounter Dominique Redmond, MSPT 11/22/2020 M17.12 Unilateral primary osteoarthriti s, left knee Dominique Sunshineglo, [facility] 11/20/2020 S83.282D Other tear of latera l meniscus, current injury, left knee, subsequent encounter Danamarie Ortolano, CAT OPERATOR 11/20/2020 M17.12 Unilateral primary osteoarthriti s, left knee Danamarie Ortolano, CAT OPERATOR 11/13/2020 S83.282D Other tear of latera l meniscus, current injury, left knee, subsequent encounter Danamarie Ortolano, CAT OPERATOR 11/13/2020 M17.12 Unilateral primary osteoarthriti s, left knee Danamarie Ortolano, CAT OPERATOR 10/10/2020 S83.282D Other tear of latera l meniscus, current injury, left knee, subsequent encounter Danamarie Ortolano, CAT OPERATOR 10/10/2020 M17.12 Unilateral primary osteoarthriti s, left knee Danamarie Ortolano, CAT OPERATOR 10/08/2020 S83.282D Other tear of latera l meniscus, current injury, left knee, subsequent encounter Danamarie Ortolano, CAT OPERATOR 10/08/2020 M17.12 Unilateral primary osteoarthriti s, left knee Danamarie Ortolano, CAT OPERATOR 10/03/2020 S83.282D Other tear of latera l meniscus, current injury, left knee, subsequent encounter Dominique MicheleBrie Jongglo, MSPT 10/03/2020 M17.12 Unilateral primary osteoarthriti s, left knee Dominique MicheleBrie Redmond, [facility] 10/01/2020 S83.282D Other tear of latera l meniscus, current injury, left knee, subsequent encounter Danamarie Ortolano, CAT OPERATOR 10/01/2020 M17.12 Unilateral primary osteoarthriti s, left knee Danamarie Ortolano, CAT OPERATOR 09/26/2020 S83.282D Other tear of latera l meniscus, current injury, left knee, subsequent encounter Danamarie Ortolano, CAT OPERATOR 09/26/2020 M17.12 Unilateral primary osteoarthriti s, left knee Danamarie Ortolano, CAT OPERATOR 09/24/2020 S83.282D Other tear of latera l meniscus, current injury, left knee, subsequent encounter Danamarie Ortolano, CAT OPERATOR 09/24/2020 M17.12 Unilateral primary osteoarthriti s, left knee Danamarie Ortolano, CAT OPERATOR 09/19/2020 S83.282D Other tear of latera l meniscus, current injury, left knee, subsequent encounter Dominique MicheleBrie Redmond, [facility] 09/19/2020 M17.12 Unilateral primary osteoarthriti s, left knee Dominique LenyBrie Redmond, [facility] 09/11/2020 S83.282A Other tear of latera [...] for Referral Status Appt Date Colby Bustillo, AVERY PT AUTH GOOD FOR EVAL THAN AUTH DUE TO MED NESS. SS Created [address] [place] [phone] Roseanne Baron MD PT - UNL VISITS OK'D FOR L K NEE FROM 12/03-, RESP# [id number]. SS Created [address] [place] [address] [phone] Roseanne Baron MD PT BASED ON MED. NECC TO PT DEPT. NT Cre ated [address] [place] [address] [phone] Roseanne Baron MD MRI NO AUTH REQUIRED FOR MRI OF LEFT KNEE ([id number]) TO MRI. DG Created [facility] [place] [address] [phone] Roseanne Baron MD MRI NO AUTH REQUIRED FOR MRI OF LEFT KNEE ([id number]) TO MRI. DG Created [facility] [place] [address] [phone]
--- OUTSIDE RECORDS SUMMARY | 2021-01-11 09:31 | CCD | Continuity of Care Document ---
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 Problems Description No Information Available Social [...] Available Procedures Date Code Description Status 12/25/2020 72174 Therapeutic Procedure, Each 15 M inutes Completed 12/24/2020 22358 X-Ray Hip Unilateral With Pelvis 2-3 Views Completed 12/20/2020 00729 Therapeutic Procedure, Each 15 M inutes Completed 12/17/2020 69508 Therapeutic Procedure, Each 15 M inutes Completed 12/14/2020 28830 Therapeutic Procedure, Each 15 M inutes Completed 12/12/2020 85224 Therapeutic Procedure, Each 15 M inutes Completed 12/05/2020 21096 Therapeutic Procedure, Each 15 M inutes Completed 11/30/2020 62725 Therapeutic Procedure, Each 15 M inutes Completed 11/28/2020 16182 Therapeutic Procedure, Each 15 M inutes Completed 11/22/2020 77666 Therapeutic Procedure, Each 15 M inutes Completed 11/20/2020 86388 Therapeutic Procedure, Each 15 M inutes Completed 11/13/2020 15810 Therapeutic Procedure, Each 15 M inutes Completed 10/10/2020 00124 Therapeutic Procedure, Each 15 M inutes Completed 10/08/2020 29713 Therapeutic Procedure, Each 15 M inutes Completed 10/03/2020 34965 Therapeutic Procedure, Each 15 M inutes Completed 10/01/2020 51371 Therapeutic Procedure, Each 15 M inutes Completed 09/26/2020 19726 Therapeutic Procedure, Each 15 M inutes Completed 09/24/2020 48491 Therapeutic Procedure, Each 15 M inutes Completed 09/19/2020 86105 Physical Therapy Eval - Low Comp lexity Completed 08/20/2020 99228 MRI Lower Extremity Any Joint Co mpleted 08/20/2020 85600 MRI Lower Extremity Any Joint Co mpleted Medical Devices Description No Information Available Encounters Type Date Location Provider Dx Diagnosis Office Visit 12/24/2020 2:00p Meenu Bowden MD M25.551 Pain in right hip Office Visit 12/21/2020 11:00a [place] Baker MD S8 3.282D Oth tear of [...] injury, left knee, subsequent encounter Danamarie Ortolano, CLINICAL ABSTRACTOR 12/25/2020 M17.12 Unilateral primary osteoarthriti s, left knee Danamarie Ortolano, CLINICAL ABSTRACTOR 12/24/2020 M25.551 Pain in right hip Jason Bowden MD 12/21/2020 S83.282D Other tear of latera l meniscus, current injury, left knee, subsequent encounter Deana Baker MD 12/21/2020 M17.12 Unilateral primary osteoarthriti s, left knee Deana Baker MD 12/20/2020 S83.282D Other tear of latera l meniscus, current injury, left knee, subsequent encounter Danamarie Ortolano, CLINICAL ABSTRACTOR 12/20/2020 M17.12 Unilateral primary osteoarthriti s, left knee Danamarie Ortolano, CLINICAL ABSTRACTOR 12/17/2020 S83.282D Other tear of latera l meniscus, current injury, left knee, subsequent encounter Danamarie Ortolano, CLINICAL ABSTRACTOR 12/17/2020 M17.12 Unilateral primary osteoarthriti s, left knee Danamarie Ortolano, CLINICAL ABSTRACTOR 12/14/2020 S83.282D Other tear of latera l meniscus, current injury, left knee, subsequent encounter Danamarie Ortolano, CLINICAL ABSTRACTOR 12/14/2020 M17.12 Unilateral primary osteoarthriti s, left knee Danamarie Ortolano, CLINICAL ABSTRACTOR 12/12/2020 S83.282D Other tear of latera l meniscus, current injury, left knee, subsequent encounter Dominique Redmond, MSPT 12/12/2020 M17.12 Unilateral primary osteoarthriti s, left knee Dominique Redmond, MSPT 12/05/2020 S83.282D Other tear of latera l meniscus, current injury, left knee, subsequent encounter Danamarie Ortolano, CLINICAL ABSTRACTOR 12/05/2020 M17.12 Unilateral primary osteoarthriti s, left knee Danamarie Ortolano, CLINICAL ABSTRACTOR 11/30/2020 S83.282D Other tear of latera l meniscus, current injury, left knee, subsequent encounter Danamarie Ortolano, CLINICAL ABSTRACTOR 11/30/2020 M17.12 Unilateral primary osteoarthriti s, left knee Danamarie Ortolano, CLINICAL ABSTRACTOR 11/28/2020 S83.282D Other tear of latera l meniscus, current injury, left knee, subsequent encounter Danamarie Ortolano, CLINICAL ABSTRACTOR 11/28/2020 M17.12 Unilateral primary osteoarthriti s, left knee Danamarie Ortolano, CLINICAL ABSTRACTOR 11/22/2020 S83.282D Other tear of latera l meniscus, current injury, left knee, subsequent encounter Dominique Redmond, MSPT 11/22/2020 M17.12 Unilateral primary osteoarthriti s, left knee Dominique Redmond, [facility] 11/20/2020 S83.282D Other tear of latera l meniscus, current injury, left knee, subsequent encounter Danamarie Ortolano, CLINICAL ABSTRACTOR 11/20/2020 M17.12 Unilateral primary osteoarthriti s, left knee Danamarie Ortolano, CLINICAL ABSTRACTOR 11/13/2020 S83.282D Other tear of latera l meniscus, current injury, left knee, subsequent encounter Danamarie Ortolano, CLINICAL ABSTRACTOR 11/13/2020 M17.12 Unilateral primary osteoarthriti s, left knee Danamarie Ortolano, CLINICAL ABSTRACTOR 10/10/2020 S83.282D Other tear of latera l meniscus, current injury, left knee, subsequent encounter Danamarie Ortolano, CLINICAL ABSTRACTOR 10/10/2020 M17.12 Unilateral primary osteoarthriti s, left knee Danamarie Ortolano, CLINICAL ABSTRACTOR 10/08/2020 S83.282D Other tear of latera l meniscus, current injury, left knee, subsequent encounter Danamarie Ortolano, CLINICAL ABSTRACTOR 10/08/2020 M17.12 Unilateral primary osteoarthriti s, left knee Danamarie Ortolano, CLINICAL ABSTRACTOR 10/03/2020 S83.282D Other tear of latera l meniscus, current injury, left knee, subsequent encounter Dominique Redmond, MSPT 10/03/2020 M17.12 Unilateral primary osteoarthriti s, left knee Dominique Redmond, MSPT 10/01/2020 S83.282D Other tear of latera l meniscus, current injury, left knee, subsequent encounter Danamarie Ortolano, CLINICAL ABSTRACTOR 10/01/2020 M17.12 Unilateral primary osteoarthriti s, left knee Danamarie Ortolano, CLINICAL ABSTRACTOR 09/26/2020 S83.282D Other tear of latera l meniscus, current injury, left knee, subsequent encounter Danamarie Ortolano, CLINICAL ABSTRACTOR 09/26/2020 M17.12 Unilateral primary osteoarthriti s, left knee Danamarie Ortolano, CLINICAL ABSTRACTOR 09/24/2020 S83.282D Other tear of latera l meniscus, current injury, left knee, subsequent encounter Danamarie Ortolano, CLINICAL ABSTRACTOR 09/24/2020 M17.12 Unilateral primary osteoarthriti s, left knee Danamarie Ortolano, CLINICAL ABSTRACTOR 09/19/2020 S83.282D Other tear of latera l meniscus, current injury, left knee, subsequent encounter Dominique Redmond, MSPT 09/19/2020 M17.12 Unilateral primary osteoarthriti s, left knee Dominique Redmond, [facility] 09/11/2020 S83.282A Other tear of latera l [...] Future Appointment(s):* 12/28/2020 2:00 pm - Colby Bustillo PTA at Physical Therapy 12/21/2020 - Deana Baker MD* S83.282D Other tear of lateral meniscus, current injury, left knee, subsequent encounter* Follow up:* prn * M17.12 Unilateral primary osteoarthritis, left knee Functional Status Description No Information Available Mental Status Description No Information Available Referrals Refer to Dr Reason for Referral Status Appt Date Colby Bustillo PTA PT AUTH GOOD FOR EVAL THAN AUTH DUE TO MED NESS. SS Created [address] [place] [address] [phone] Roseanne Baron MD PT - UNL VISITS OK'D FOR L Adele RODRIGUEZ FROM 12/03-, RESP# [id number]. SS Created [address] [place] [address] [phone] Roseanne Baron MD PT BASED ON MED. NECC TO PT DEPT. NT Cre ated [address] [place] [address] [phone] Roseanne Baron MD MRI NO AUTH REQUIRED FOR MRI OF LEFT KNEE ([id number]) TO MRI. DG Created [address] [place] [address] [phone] Roseanne Baron MD MRI NO AUTH REQUIRED FOR MRI OF LEFT KNEE ([id number]) TO MRI. DG Created [address] [place] [address] [phone]
--- OUTSIDE RECORDS SUMMARY | 2021-01-11 09:31 | CCD ---
Author Author [facility] Organization [facility] Address Unknown Phone Unavailable Care Team Providers Care Deck Supervisor Name Role Phone Magalis Reynoso Unavailable PROBLEMS Type Condition ICD9-CM Code VGF65-IQ Code Onset Dates Condition S tatus SNOMED Code Notes Problem Mild persistent asthma without complication J45.30 Active 587176642 Problem History of anemia Z86.2 Active 108416528 Problem Sinusitis, unspecified chronicity, unspecified location J32.9 Active 24944308 Problem Mild persistent asthma, uncomplicated J45.30 Ac tive 929847548 Problem Gastroesophageal reflux disease without esophagitis K21.9 Active 012833348 Problem History of vitamin D deficiency Z86.39 Active 42349615803467 Problem 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 Active 86277 1001 Problem Aortic valve stenosis, mild I35.0 Active 6057 3004 ALLERGIES Allergen (clinical drug ingredient) Drug/Non Drug Allergy do cumented on EMR Reaction Allergy Type Onset Date Status Sulfa (for allergy use only) Rash Drug Allergy Active vancomycin Vancomycin HCl(NDC Code:[address]-70) Rash Drug All ergy Active celecoxib Celebrex(NDC Code:[address]-81) Hives, itching,swelli ng Drug Allergy Active clindamycin Clindamycin HCl(NDC Code:[address]-53) Rash Drug A llergy Active cephalexin Cephalexin(NDC Code:[address]-57) Rash Drug Allergy Active naproxen Naproxen(NDC Code:[address]-73) Rash Drug Allergy Active Lactose(NDC Code:[address]-70) intolerant Drug Allergy Active sulfamethoxazole / trimethoprim Bactrim([facility] Code:[address]-56) Rash Drug Allergy Active erythromycin Erythromycin([facility] Code:[address]-53) swelling Drug All ergy Active ENCOUNTERS from 1981 to 2020-12-21 Encounter Location Date Provider Diagnosis [facility] [address] [place] [address] Nov, Magalis Reynoso Pain in left hip M25.552 and Pain in rig ht hip M25.551 IMMUNIZATIONS Vaccine Route Administration Date Status Influenza [...] Education Language: Question Answer Notes Languages spoken: Zimbabwean Muslim: Question Answer Notes Muslim 33 None Sexual Hx: Question Answer Notes [...] 2 puffs Inhalation Twice a day 2 0 Dec, 2019 Active Fosamax 70 MG 1 [...] Information RESULTS No Results REASON FOR VISIT New medication MEDICAL (GENERAL) HISTORY Type Description Date Medical [...] No Information FUNCTIONAL STATUS No Information ASSESSMENTS Encounter Date Diagnosis Assessment Notes Treatment Notes Treatm ent Clinical Notes Nov, Pain in left hip (ICD-10 - M25.552) Nov, Pain in right hip (ICD-10 - M25.551) PLAN OF TREATMENT Medication Medication Name Sig Start Date Stop Date Acetaminophen-Codeine #3 300-30 MG 1 tablet as needed Orally every 6 hrs (MDD=4) for 30 days Next Appt Details Provider Name:Magalis Reynoso, 02:45:00 PM, [address] [place], [address], Insurance Providers Payer Name Payer Address Payer Phone Insured Name Patient Relati onship to Insured Coverage Start Date Coverage End Date MEDICAID Flux [address] 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
--- OUTSIDE RECORDS SUMMARY | 2021-01-11 09:31 | CCD | Continuity of Care Document ---
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 2tabs Jason Oh MD 12/24/2020 Baclofen 10mg Tablets Unknown Loratadine [...] Available Procedures Date Code Description Status 12/25/2020 76096 Therapeutic Procedure, Each 15 M inutes Completed 12/24/2020 19794 X-Ray Hip Unilateral With Pelvis 2-3 Views Completed 12/20/2020 12309 Therapeutic Procedure, Each 15 M inutes Completed 12/17/2020 18939 Therapeutic Procedure, Each 15 M inutes Completed 12/14/2020 85995 Therapeutic Procedure, Each 15 M inutes Completed 12/12/2020 84287 Therapeutic Procedure, Each 15 M inutes Completed 12/05/2020 33248 Therapeutic Procedure, Each 15 M inutes Completed 11/30/2020 22638 Therapeutic Procedure, Each 15 M inutes Completed 11/28/2020 98822 Therapeutic Procedure, Each 15 M inutes Completed 11/22/2020 68700 Therapeutic Procedure, Each 15 M inutes Completed 11/20/2020 76343 Therapeutic Procedure, Each 15 M inutes Completed 11/13/2020 74164 Therapeutic Procedure, Each 15 M inutes Completed 10/10/2020 16705 Therapeutic Procedure, Each 15 M inutes Completed 10/08/2020 10946 Therapeutic Procedure, Each 15 M inutes Completed 10/03/2020 05121 Therapeutic Procedure, Each 15 M inutes Completed 10/01/2020 19961 Therapeutic Procedure, Each 15 M inutes Completed 09/26/2020 99885 Therapeutic Procedure, Each 15 M inutes Completed 09/24/2020 25994 Therapeutic Procedure, Each 15 M inutes Completed 09/19/2020 57802 Physical Therapy Eval - Low Comp lexity Completed 08/20/2020 80607 MRI Lower Extremity Any Joint Co mpleted 08/20/2020 37032 MRI Lower Extremity Any Joint Co mpleted Medical Devices Description No Information Available Encounters Type Date Location Provider Dx Diagnosis Office Visit 12/24/2020 2:00p Meenu Oh MD M25.551 Pain in right hip Office Visit 12/21/2020 11:00a [place] Baker MD S8 3.282D Oth tear of [...] injury, left knee, subsequent encounter Danamarie Ortolano, OPERATIONS SUPPORT REPRESENTATIVE 12/25/2020 M17.12 Unilateral primary osteoarthriti s, left knee Danamarie Ortolano, OPERATIONS SUPPORT REPRESENTATIVE 12/24/2020 M25.551 Pain in right hip Jason Oh MD 12/21/2020 S83.282D Other tear of latera l meniscus, current injury, left knee, subsequent encounter Deana Baker MD 12/21/2020 M17.12 Unilateral primary osteoarthriti s, left knee Deana Baker MD 12/20/2020 S83.282D Other tear of latera l meniscus, current injury, left knee, subsequent encounter Danamarie Ortolano, OPERATIONS SUPPORT REPRESENTATIVE 12/20/2020 M17.12 Unilateral primary osteoarthriti s, left knee Danamarie Ortolano, OPERATIONS SUPPORT REPRESENTATIVE 12/17/2020 S83.282D Other tear of latera l meniscus, current injury, left knee, subsequent encounter Danamarie Ortolano, OPERATIONS SUPPORT REPRESENTATIVE 12/17/2020 M17.12 Unilateral primary osteoarthriti s, left knee Danamarie Ortolano, OPERATIONS SUPPORT REPRESENTATIVE 12/14/2020 S83.282D Other tear of latera l meniscus, current injury, left knee, subsequent encounter Danamarie Ortolano, OPERATIONS SUPPORT REPRESENTATIVE 12/14/2020 M17.12 Unilateral primary osteoarthriti s, left knee Danamarie Ortolano, OPERATIONS SUPPORT REPRESENTATIVE 12/12/2020 S83.282D Other tear of latera l meniscus, current injury, left knee, subsequent encounter Dominique Redmond, MSPT 12/12/2020 M17.12 Unilateral primary osteoarthriti s, left knee Dominique Redmond, MSPT 12/05/2020 S83.282D Other tear of latera l meniscus, current injury, left knee, subsequent encounter Danamarie Ortolano, OPERATIONS SUPPORT REPRESENTATIVE 12/05/2020 M17.12 Unilateral primary osteoarthriti s, left knee Danamarie Ortolano, OPERATIONS SUPPORT REPRESENTATIVE 11/30/2020 S83.282D Other tear of latera l meniscus, current injury, left knee, subsequent encounter Danamarie Ortolano, OPERATIONS SUPPORT REPRESENTATIVE 11/30/2020 M17.12 Unilateral primary osteoarthriti s, left knee Danamarie Ortolano, OPERATIONS SUPPORT REPRESENTATIVE 11/28/2020 S83.282D Other tear of latera l meniscus, current injury, left knee, subsequent encounter Danamarie Ortolano, OPERATIONS SUPPORT REPRESENTATIVE 11/28/2020 M17.12 Unilateral primary osteoarthriti s, left knee Danamarie Ortolano, OPERATIONS SUPPORT REPRESENTATIVE 11/22/2020 S83.282D Other tear of latera l meniscus, current injury, left knee, subsequent encounter Dominique Redmond, MSPT 11/22/2020 M17.12 Unilateral primary osteoarthriti s, left knee [facility], [facility] 11/20/2020 S83.282D Other tear of latera l meniscus, current injury, left knee, subsequent encounter Danamarie Ortolano, OPERATIONS SUPPORT REPRESENTATIVE 11/20/2020 M17.12 Unilateral primary osteoarthriti s, left knee Danamarie Ortolano, OPERATIONS SUPPORT REPRESENTATIVE 11/13/2020 S83.282D Other tear of latera l meniscus, current injury, left knee, subsequent encounter Danamarie Ortolano, OPERATIONS SUPPORT REPRESENTATIVE 11/13/2020 M17.12 Unilateral primary osteoarthriti s, left knee Danamarie Ortolano, OPERATIONS SUPPORT REPRESENTATIVE 10/10/2020 S83.282D Other tear of latera l meniscus, current injury, left knee, subsequent encounter Danamarie Ortolano, OPERATIONS SUPPORT REPRESENTATIVE 10/10/2020 M17.12 Unilateral primary osteoarthriti s, left knee Danamarie Ortolano, OPERATIONS SUPPORT REPRESENTATIVE 10/08/2020 S83.282D Other tear of latera l meniscus, current injury, left knee, subsequent encounter Danamarie Ortolano, OPERATIONS SUPPORT REPRESENTATIVE 10/08/2020 M17.12 Unilateral primary osteoarthriti s, left knee Danamarie Ortolano, OPERATIONS SUPPORT REPRESENTATIVE 10/03/2020 S83.282D Other tear of latera l meniscus, current injury, left knee, subsequent encounter Dominique Redmond, MSPT 10/03/2020 M17.12 Unilateral primary osteoarthriti s, left knee Dominique MicheleBrie Redmond, [facility] 10/01/2020 S83.282D Other tear of latera l meniscus, current injury, left knee, subsequent encounter Danamarie Ortolano, OPERATIONS SUPPORT REPRESENTATIVE 10/01/2020 M17.12 Unilateral primary osteoarthriti s, left knee Danamarie Ortolano, OPERATIONS SUPPORT REPRESENTATIVE 09/26/2020 S83.282D Other tear of latera l meniscus, current injury, left knee, subsequent encounter Danamarie Ortolano, OPERATIONS SUPPORT REPRESENTATIVE 09/26/2020 M17.12 Unilateral primary osteoarthriti s, left knee Danamarie Ortolano, OPERATIONS SUPPORT REPRESENTATIVE 09/24/2020 S83.282D Other tear of latera l meniscus, current injury, left knee, subsequent encounter Danamarie Ortolano, OPERATIONS SUPPORT REPRESENTATIVE 09/24/2020 M17.12 Unilateral primary osteoarthriti s, left knee Danamarie Ortolano, OPERATIONS SUPPORT REPRESENTATIVE 09/19/2020 S83.282D Other tear of latera l meniscus, current injury, left knee, subsequent encounter Dominique LenyBrie Redmond, MSPT 09/19/2020 M17.12 Unilateral primary osteoarthriti s, left knee [facility]ique Redmond, [facility] 09/11/2020 S83.282A Other tear of [...] Dr Reason for Referral Status Appt Date Ortolano, Danamarie, OPERATIONS SUPPORT REPRESENTATIVE PT AUTH GOOD FOR EVAL THAN AUTH DUE TO MED NESS. SS Created [address] [place], [place] [address] [phone] Roseanne Braon MD PT - UNL VISITS OK'D FOR L Adele RODRIGUEZ FROM 12/03-, RESP# [id number]. SS Created [address] [place] [address] [phone] Roseanne Baron MD PT BASED ON MED. NECC TO PT DEPT. NT Cre ated [address] [place] [address] [phone] Roseanne Baron MD MRI NO AUTH REQUIRED FOR MRI OF LEFT KNEE ([id number]) TO MRI. DG Created [address] [place] [address] [phone] Roseanne Baron MD MRI NO AUTH REQUIRED FOR MRI OF LEFT KNEE ([id number]) TO MRI. DG Created [address] [place] [address] [phone]
--- OUTSIDE RECORDS SUMMARY | 2021-01-11 09:31 | CCD | Continuity of Care Document ---
Author Author Roberta BUSTILLO [facility] Organization Unknown Address [address] [address] Phone [phone] Care Team Providers Care Food Selector Name Role Phone Magalis Reynoso MARKETING PRODUCTION COORDINATOR AUTM Problems Description No Information Available Social [...] Available Procedures Date Code Description Status 12/25/2020 94796 Therapeutic Procedure, Each 15 M inutes Completed 12/24/2020 96114 X-Ray Hip Unilateral With Pelvis 2-3 Views Completed 12/20/2020 26152 Therapeutic Procedure, Each 15 M inutes Completed 12/17/2020 80888 Therapeutic Procedure, Each 15 M inutes Completed 12/14/2020 09113 Therapeutic Procedure, Each 15 M inutes Completed 12/12/2020 60239 Therapeutic Procedure, Each 15 M inutes Completed 12/05/2020 53853 Therapeutic Procedure, Each 15 M inutes Completed 11/30/2020 37778 Therapeutic Procedure, Each 15 M inutes Completed 11/28/2020 42970 Therapeutic Procedure, Each 15 M inutes Completed 11/22/2020 14378 Therapeutic Procedure, Each 15 M inutes Completed 11/20/2020 24325 Therapeutic Procedure, Each 15 M inutes Completed 11/13/2020 25391 Therapeutic Procedure, Each 15 M inutes Completed 10/10/2020 78929 Therapeutic Procedure, Each 15 M inutes Completed 10/08/2020 18710 Therapeutic Procedure, Each 15 M inutes Completed 10/03/2020 84692 Therapeutic Procedure, Each 15 M inutes Completed 10/01/2020 52746 Therapeutic Procedure, Each 15 M inutes Completed 09/26/2020 44747 Therapeutic Procedure, Each 15 M inutes Completed 09/24/2020 01729 Therapeutic Procedure, Each 15 M inutes Completed 09/19/2020 80784 Physical Therapy Eval - Low Comp lexity Completed 08/20/2020 39342 MRI Lower Extremity Any Joint Co mpleted 08/20/2020 39875 MRI Lower Extremity Any Joint Co mpleted Medical Devices Description No Information Available Encounters Type Date Location Provider Dx Diagnosis Office Visit 12/24/2020 2:00p Meenu Bowden MD M25.551 Pain in right hip Office Visit 12/21/2020 11:00a Rowdyhuan Baker MD S8 3.282D Oth tear of [...] injury, left knee, subsequent encounter Danamarie Ortolano, [employer] 12/25/2020 M17.12 Unilateral primary osteoarthriti s, left knee Danamarie Ortolano, [employer] 12/24/2020 M25.551 Pain in right hip Jason Bowden MD 12/21/2020 S83.282D Other tear of latera l meniscus, current injury, left knee, subsequent encounter Deana Baker MD 12/21/2020 M17.12 Unilateral primary osteoarthriti s, left knee Deana Baker MD 12/20/2020 S83.282D Other tear of latera l meniscus, current injury, left knee, subsequent encounter Danamarie Ortolano, [employer] 12/20/2020 M17.12 Unilateral primary osteoarthriti s, left knee Danamarie Ortolano, [employer] 12/17/2020 S83.282D Other tear of latera l meniscus, current injury, left knee, subsequent encounter Danamarie Ortolano, [employer] 12/17/2020 M17.12 Unilateral primary osteoarthriti s, left knee Danamarie Ortolano, [employer] 12/14/2020 S83.282D Other tear of latera l meniscus, current injury, left knee, subsequent encounter Danamarie Ortolano, [employer] 12/14/2020 M17.12 Unilateral primary osteoarthriti s, left knee Danamarie Ortolano, [employer] 12/12/2020 S83.282D Other tear of latera l meniscus, current injury, left knee, subsequent encounter Dominique Redmond, MSPT 12/12/2020 M17.12 Unilateral primary osteoarthriti s, left knee Dominique Redmond, MSPT 12/05/2020 S83.282D Other tear of latera l meniscus, current injury, left knee, subsequent encounter Danamarie Ortolano, [employer] 12/05/2020 M17.12 Unilateral primary osteoarthriti s, left knee Danamarie Ortolano, [employer] 11/30/2020 S83.282D Other tear of latera l meniscus, current injury, left knee, subsequent encounter Danamarie Ortolano, [employer] 11/30/2020 M17.12 Unilateral primary osteoarthriti s, left knee Danamarie Ortolano, [employer] 11/28/2020 S83.282D Other tear of latera l meniscus, current injury, left knee, subsequent encounter Danamarie Ortolano, [employer] 11/28/2020 M17.12 Unilateral primary osteoarthriti s, left knee Danamarie Ortolano, [employer] 11/22/2020 S83.282D Other tear of latera l meniscus, current injury, left knee, subsequent encounter Dominique Redmond, MSPT 11/22/2020 M17.12 Unilateral primary osteoarthriti s, left knee [facility], [facility] 11/20/2020 S83.282D Other tear of latera l meniscus, current injury, left knee, subsequent encounter Danamarie Ortolano, [employer] 11/20/2020 M17.12 Unilateral primary osteoarthriti s, left knee Danamarie Ortolano, [employer] 11/13/2020 S83.282D Other tear of latera l meniscus, current injury, left knee, subsequent encounter Danamarie Ortolano, [employer] 11/13/2020 M17.12 Unilateral primary osteoarthriti s, left knee Danamarie Ortolano, [employer] 10/10/2020 S83.282D Other tear of latera l meniscus, current injury, left knee, subsequent encounter Danamarie Ortolano, [employer] 10/10/2020 M17.12 Unilateral primary osteoarthriti s, left knee Danamarie Ortolano, [employer] 10/08/2020 S83.282D Other tear of latera l meniscus, current injury, left knee, subsequent encounter Danamarie Ortolano, [employer] 10/08/2020 M17.12 Unilateral primary osteoarthriti s, left knee Danamarie Ortolano, [employer] 10/03/2020 S83.282D Other tear of latera l meniscus, current injury, left knee, subsequent encounter Dominique Redmond, MSPT 10/03/2020 M17.12 Unilateral primary osteoarthriti s, left knee Dominique Redmond, MSPT 10/01/2020 S83.282D Other tear of latera l meniscus, current injury, left knee, subsequent encounter Danamarie Ortolano, [employer] 10/01/2020 M17.12 Unilateral primary osteoarthriti s, left knee Danamarie Ortolano, [employer] 09/26/2020 S83.282D Other tear of latera l meniscus, current injury, left knee, subsequent encounter Danamarie Ortolano, [employer] 09/26/2020 M17.12 Unilateral primary osteoarthriti s, left knee Danamarie Ortolano, [employer] 09/24/2020 S83.282D Other tear of latera l meniscus, current injury, left knee, subsequent encounter Danamarie Ortolano, [employer] 09/24/2020 M17.12 Unilateral primary osteoarthriti s, left knee Danamarie Ortolano, [employer] 09/19/2020 S83.282D Other tear of latera l meniscus, current injury, left knee, subsequent encounter Dominique Redmond, MSPT 09/19/2020 M17.12 Unilateral primary osteoarthriti s, left knee [facility]ique Redmond, [facility] 09/11/2020 S83.282A Other tear of latera [...] AUTH DUE TO MED NESS. SS Created [address] [place] [address] [phone] Roseanne Baron MD PT - UNL VISITS OK'D FOR L Adele RODRIGUEZ FROM 12/03-, RESP# [id number]. SS Created [address] [place] [address] [phone] Roseanne Baron MD PT BASED ON MED. [facility] TO PT DEPT. NT Cre ated [address] [place] [address] [phone] Roseanne Baron MD MRI NO AUTH REQUIRED FOR MRI OF LEFT KNEE ([id number]) TO MRI. DG Created [address] [place] [address] [phone] Roseanne Baron MD MRI NO AUTH REQUIRED FOR MRI OF LEFT KNEE ([id number]) TO MRI. DG Created [address] [place] [address] [phone]
--- OUTSIDE RECORDS SUMMARY | 2021-01-11 09:32 | CCD | Continuity of Care Document ---
Author Author Roberta BUSTILLO [facility] Organization Unknown Address [address] [address] Phone [phone] Care Team Providers Care Barker Peeler Name Role Phone Magalis Reynoso [facility] AUTM [phone] Problems Description No Information Available Social History [...] Information Available Procedures Date Code Description Status 12/14/2020 34400 Therapeutic Procedure, Each 15 M inutes Completed 12/14/2020 16277 Hot Or Cold Packs Completed 12/12/2020 38503 Therapeutic Procedure, Each 15 M inutes Completed 12/05/2020 06324 Therapeutic Procedure, Each 15 M inutes Completed 11/30/2020 07156 Therapeutic Procedure, Each 15 M inutes Completed 11/28/2020 38231 Therapeutic Procedure, Each 15 M inutes Completed 11/22/2020 07938 Therapeutic Procedure, Each 15 M inutes Completed 11/20/2020 84504 Therapeutic Procedure, Each 15 M inutes Completed 11/13/2020 57102 Therapeutic Procedure, Each 15 M inutes Completed 10/10/2020 10655 Therapeutic Procedure, Each 15 M inutes Completed 10/08/2020 26704 Therapeutic Procedure, Each 15 M inutes Completed 10/03/2020 62353 Therapeutic Procedure, Each 15 M inutes Completed 10/01/2020 18688 Therapeutic Procedure, Each 15 M inutes Completed 09/26/2020 31688 Therapeutic Procedure, Each 15 M inutes Completed 09/24/2020 50811 Therapeutic Procedure, Each 15 M inutes Completed 09/19/2020 12737 Physical Therapy Eval - Low Comp lexity Completed 08/20/2020 89504 MRI Lower Extremity Any Joint Co mpleted 08/20/2020 69111 MRI Lower Extremity Any Joint Co mpleted [...] initial encounter Assessments Date Code Description Provider 12/12/2020 S83.282D Other tear of latera l meniscus, current injury, left knee, subsequent encounter Dominique Redmond, MSPT 12/12/2020 M17.12 Unilateral primary osteoarthriti s, left knee Dominique Redmond, MSPT 12/05/2020 S83.282D Other tear of latera l meniscus, current injury, left knee, subsequent encounter Danamarie Ortolano, [employer]ETY HELPER 12/05/2020 M17.12 Unilateral primary osteoarthriti s, left knee Danamarie Ortolano, [employer] SAFETY HELPER 11/30/2020 S83.282D Other tear of latera l meniscus, current injury, left knee, subsequent encounter Danamarie Ortolano, FI[employer] SAFETY HELPER 11/30/2020 M17.12 Unilateral primary osteoarthriti s, left knee Danamarie Ortolano, FIRE AND SAFETY HELPER 11/28/2020 S83.282D Other tear of latera l meniscus, current injury, left knee, subsequent encounter Danamarie Ortolano, FIRE AND SAFETY HELPER 11/28/2020 M17.12 Unilateral primary osteoarthriti s, left knee Danamarie Ortolano, FI[employer] AND SAFETY HELPER 11/22/2020 S83.282D Other tear of latera l meniscus, current injury, left knee, subsequent encounter Dominique Redmond, MSPT 11/22/2020 M17.12 Unilateral primary osteoarthriti s, left knee Dominique Redmond, MSPT 11/20/2020 S83.282D Other tear of latera l meniscus, current injury, left knee, subsequent encounter Danamarie Ortolano, FI[employer] SAFETY HELPER 11/20/2020 M17.12 Unilateral primary osteoarthriti s, left knee Danamarie Ortolano, FIRE AND SAFETY HELPER 11/13/2020 S83.282D Other tear of latera l meniscus, current injury, left knee, subsequent encounter Danamarie Ortolano, FIRE AND SAFETY HELPER 11/13/2020 M17.12 Unilateral primary osteoarthriti s, left knee Danamarie Ortolano, FIRE AND SAFETY HELPER 10/10/2020 S83.282D Other tear of latera l meniscus, current injury, left knee, subsequent encounter Danamarie Ortolano, FIRE AND SAFETY HELPER 10/10/2020 M17.12 Unilateral primary osteoarthriti s, left knee Danamarie Ortolano, FIRE AND SAFETY HELPER 10/08/2020 S83.282D Other tear of latera l meniscus, current injury, left knee, subsequent encounter Danamarie Ortolano, FIRE AND SAFETY HELPER 10/08/2020 M17.12 Unilateral primary osteoarthriti s, left knee Danamarie Ortolano, FI[employer] AND SAFETY HELPER 10/03/2020 S83.282D Other tear of latera l meniscus, current injury, left knee, subsequent encounter Dominique MicheleBrie Jongglo, MSPT 10/03/2020 M17.12 Unilateral primary osteoarthriti s, left knee Dominique Sunshineglo, MSPT 10/01/2020 S83.282D Other tear of latera l meniscus, current injury, left knee, subsequent encounter Danamarie Ortolano, FIRE AND SAFETY HELPER 10/01/2020 M17.12 Unilateral primary osteoarthriti s, left knee Danamarie Ortolano, FIRE AND SAFETY HELPER 09/26/2020 S83.282D Other tear of latera l meniscus, current injury, left knee, subsequent encounter Danamarie Ortolano, FIRE AND SAFETY HELPER 09/26/2020 M17.12 Unilateral primary osteoarthriti s, left knee Danamarie Ortolano, FIRE AND SAFETY HELPER 09/24/2020 S83.282D Other tear of latera l meniscus, current injury, left knee, subsequent encounter Danamarie Ortolano, FIRE AND SAFETY HELPER 09/24/2020 M17.12 Unilateral primary osteoarthriti s, left knee Danamarie Ortolano, FIRE AND SAFETY HELPER 09/19/2020 S83.282D Other tear of latera l meniscus, current injury, left knee, subsequent encounter Dominique MicheleBrie Jongglo, MSPT 09/19/2020 M17.12 Unilateral primary osteoarthriti s, left knee Dominique MicheleBrie Jongglo, [facility] 09/11/2020 S83.282A Other tear of latera l [...] Baker MD Plan of Treatment Future Appointment(s):* 12/17/2020 2:00 pm - Colby Bustillo, FIRE AND SAFETY HELPER at Physical Therapy * 12/21/2020 1:00 pm - Colby Bustillo, FIRE AND SAFETY HELPER at Physical Therapy * 12/21/2020 11:00 am - Deana Baker MD at [place] Functional Status Description No Information Available Mental Status Description No Information Available Referrals Refer to Dr Reason for Referral Status Appt Date Roseanne Baron MD PT BASED ON MED. [facility] TO PT DEPT. NT Cre ated [place] [address] [phone] Roseanne Baron MD MRI NO AUTH REQUIRED FOR MRI OF LEFT KNEE ([id number]) TO MRI. DG Created [address] [place] [address] [phone] Roseanne Baron MD MRI NO AUTH REQUIRED FOR MRI OF LEFT KNEE ([id number]) TO MRI. DG Created [facility] [address] [phone]
--- OUTSIDE RECORDS SUMMARY | 2021-01-11 09:32 | CCD | Continuity of Care Document ---
Author Author Roberta BUSTILLO [facility] Organization Unknown Address [address] [address] Phone [phone] Care Team Providers Care Hot Billet Shear Operator Name Role Phone Magalis Reynoso [facility] AUTM Problems Description No Information Available Social [...] Available Procedures Date Code Description Status 12/17/2020 93462 Therapeutic Procedure, Each 15 M inutes Completed 12/14/2020 19494 Therapeutic Procedure, Each 15 M inutes Completed 12/12/2020 50447 Therapeutic Procedure, Each 15 M inutes Completed 12/05/2020 68246 Therapeutic Procedure, Each 15 M inutes Completed 11/30/2020 57397 Therapeutic Procedure, Each 15 M inutes Completed 11/28/2020 24416 Therapeutic Procedure, Each 15 M inutes Completed 11/22/2020 26748 Therapeutic Procedure, Each 15 M inutes Completed 11/20/2020 80669 Therapeutic Procedure, Each 15 M inutes Completed 11/13/2020 93295 Therapeutic Procedure, Each 15 M inutes Completed 10/10/2020 50971 Therapeutic Procedure, Each 15 M inutes Completed 10/08/2020 08418 Therapeutic Procedure, Each 15 M inutes Completed 10/03/2020 44062 Therapeutic Procedure, Each 15 M inutes Completed 10/01/2020 15492 Therapeutic Procedure, Each 15 M inutes Completed 09/26/2020 25241 Therapeutic Procedure, Each 15 M inutes Completed 09/24/2020 53654 Therapeutic Procedure, Each 15 M inutes Completed 09/19/2020 90051 Physical Therapy Eval - Low Comp lexity Completed 08/20/2020 24865 MRI Lower Extremity Any Joint Co mpleted 08/20/2020 87576 MRI Lower Extremity Any Joint Co mpleted [...] injury, left knee, subsequent encounter Danamarie Ortolano, [employer] 12/17/2020 M17.12 Unilateral primary osteoarthriti s, left knee Danamarie Ortolano, [employer] 12/14/2020 S83.282D Other tear of latera l meniscus, current injury, left knee, subsequent encounter Danamarie Ortolano, [employer] 12/14/2020 M17.12 Unilateral primary osteoarthriti s, left knee Danamarie Ortolano, [employer] 12/12/2020 S83.282D Other tear of latera l meniscus, current injury, left knee, subsequent encounter Dominique Redmond, MSPT 12/12/2020 M17.12 Unilateral primary osteoarthriti s, left knee [facility] Redmond, [facility] 12/05/2020 S83.282D Other tear of latera l meniscus, current injury, left knee, subsequent encounter Danamarie Ortolano, [employer] 12/05/2020 M17.12 Unilateral primary osteoarthriti s, left knee Danamarie Ortolano, [employer] 11/30/2020 S83.282D Other tear of latera l meniscus, current injury, left knee, subsequent encounter Danamarie Ortolano, [employer] 11/30/2020 M17.12 Unilateral primary osteoarthriti s, left knee Danamarie Ortolano, [employer] 11/28/2020 S83.282D Other tear of latera l meniscus, current injury, left knee, subsequent encounter Danamarie Ortolano, HE[employer] WORK[employer] 11/28/2020 M17.12 Unilateral primary osteoarthriti s, left knee Danamarie Ortolano, HE[employer] 11/22/2020 S83.282D Other tear of latera l meniscus, current injury, left knee, subsequent encounter Dominique Redmond, MSPT 11/22/2020 M17.12 Unilateral primary osteoarthriti s, left knee Dominique Redmond, [facility] 11/20/2020 S83.282D Other tear of latera l meniscus, current injury, left knee, subsequent encounter Danamarie Ortolano, [employer] 11/20/2020 M17.12 Unilateral primary osteoarthriti s, left knee Danamarie Ortolano, [employer] 11/13/2020 S83.282D Other tear of latera l meniscus, current injury, left knee, subsequent encounter Danamarie Ortolano, [employer] 11/13/2020 M17.12 Unilateral primary osteoarthriti s, left knee Danamarie Ortolano, [employer] 10/10/2020 S83.282D Other tear of latera l meniscus, current injury, left knee, subsequent encounter Danamarie Ortolano, [employer] 10/10/2020 M17.12 Unilateral primary osteoarthriti s, left knee Danamarie Ortolano, [employer] 10/08/2020 S83.282D Other tear of latera l meniscus, current injury, left knee, subsequent encounter Danamarie Ortolano, [employer] 10/08/2020 M17.12 Unilateral primary osteoarthriti s, left knee Danamarie Ortolano, [employer] 10/03/2020 S83.282D Other tear of latera l meniscus, current injury, left knee, subsequent encounter Dominique Redmond, MSPT 10/03/2020 M17.12 Unilateral primary osteoarthriti s, left knee Dominique Redmond, [facility] 10/01/2020 S83.282D Other tear of latera l meniscus, current injury, left knee, subsequent encounter Danamarie Ortolano, HE[employer] 10/01/2020 M17.12 Unilateral primary osteoarthriti s, left knee Danamarie Ortolano, [employer] 09/26/2020 S83.282D Other tear of latera l meniscus, current injury, left knee, subsequent encounter Danamarie Ortolano, [employer] 09/26/2020 M17.12 Unilateral primary osteoarthriti s, left knee Danamarie Ortolano, [employer] 09/24/2020 S83.282D Other tear of latera l meniscus, current injury, left knee, subsequent encounter Danamarie Ortolano, [employer] 09/24/2020 M17.12 Unilateral primary osteoarthriti s, left knee Danamarie Ortolano, [employer] 09/19/2020 S83.282D Other tear of latera l [...] Appointment(s):* 12/28/2020 2:00 pm - Colby Bustillo, HE[employer] WORKERS at Physical Therapy * 12/25/2020 2:00 pm - Colby Bustillo, HE[employer] WORKERS at Physical Therapy * 12/20/2020 4:30 pm - Colby Bustillo, HE[employer] WORKERS at Physical Therapy * 12/21/2020 11:00 am - Deana Baker MD at [place] Functional Status Description No Information Available Mental Status Description No Information Available Referrals Refer to Dr Reason for Referral Status Appt Date Colby Bustillo, [employer] PT AUTH GOOD FOR EVAL THAN AUTH DUE TO MED NESS. SS Created [address] [place] [address] [phone] Roseanne Baron MD PT - UNL VISITS OK'D FOR L K NEE FROM 12/03-, RESP# [id number]. SS Created [address] [place] [address] [address] [place] [address] [phone] Roseanne Baron MD PT BASED ON MED. [facility] TO PT DEPT. NT Cre ated [address] [place] [address] [phone] Roseanne Baron MD MRI NO AUTH REQUIRED FOR MRI OF LEFT KNEE ([id number]) TO MRI. ERNESTO Created [address] [place] [address] [phone] Roseanne Baron MD MRI NO AUTH REQUIRED FOR MRI OF LEFT KNEE ([id number]) TO MRI. ERNESTO Created [address] [place] [address] [phone]
--- OUTSIDE RECORDS SUMMARY | 2021-01-11 09:32 | CCD | Continuity of Care Document ---
Author Author Roberta BUSTILLO [facility] Organization Unknown Address [address] [address] Phone [phone] Care Team Providers Care Kitchenwhere Maker Name Role Phone Magalis Reynoso [facility] AUTM Problems Description No Information Available [...] Available Procedures Date Code Description Status 12/17/2020 37843 Therapeutic Procedure, Each 15 M inutes Completed 12/14/2020 88427 Therapeutic Procedure, Each 15 M inutes Completed 12/12/2020 14957 Therapeutic Procedure, Each 15 M inutes Completed 12/05/2020 25888 Therapeutic Procedure, Each 15 M inutes Completed 11/30/2020 25912 Therapeutic Procedure, Each 15 M inutes Completed 11/28/2020 14886 Therapeutic Procedure, Each 15 M inutes Completed 11/22/2020 33382 Therapeutic Procedure, Each 15 M inutes Completed 11/20/2020 16617 Therapeutic Procedure, Each 15 M inutes Completed 11/13/2020 32065 Therapeutic Procedure, Each 15 M inutes Completed 10/10/2020 80459 Therapeutic Procedure, Each 15 M inutes Completed 10/08/2020 79139 Therapeutic Procedure, Each 15 M inutes Completed 10/03/2020 78927 Therapeutic Procedure, Each 15 M inutes Completed 10/01/2020 82385 Therapeutic Procedure, Each 15 M inutes Completed 09/26/2020 15939 Therapeutic Procedure, Each 15 M inutes Completed 09/24/2020 42390 Therapeutic Procedure, Each 15 M inutes Completed 09/19/2020 84203 Physical Therapy Eval - Low Comp lexity Completed 08/20/2020 35305 MRI Lower Extremity Any Joint Co mpleted 08/20/2020 84894 MRI Lower Extremity Any Joint Co mpleted [...] injury, left knee, subsequent encounter Danamarie Ortolano, CHIEF PROJECTIONIST 12/17/2020 M17.12 Unilateral primary osteoarthriti s, left knee Danamarie Ortolano, CHIEF PROJECTIONIST 12/14/2020 S83.282D Other tear of latera l meniscus, current injury, left knee, subsequent encounter Danamarie Ortolano, CHIEF PROJECTIONIST 12/14/2020 M17.12 Unilateral primary osteoarthriti s, left knee Danamarie Ortolano, CHIEF PROJECTIONIST 12/12/2020 S83.282D Other tear of latera l meniscus, current injury, left knee, subsequent encounter Dominique Redmond, MSPT 12/12/2020 M17.12 Unilateral primary osteoarthriti s, left knee [facility], [facility] 12/05/2020 S83.282D Other tear of latera l meniscus, current injury, left knee, subsequent encounter Danamarie Ortolano, CHIEF PROJECTIONIST 12/05/2020 M17.12 Unilateral primary osteoarthriti s, left knee Danamarie Ortolano, CHIEF PROJECTIONIST 11/30/2020 S83.282D Other tear of latera l meniscus, current injury, left knee, subsequent encounter Danamarie Ortolano, CHIEF PROJECTIONIST 11/30/2020 M17.12 Unilateral primary osteoarthriti s, left knee Danamarie Ortolano, CHIEF PROJECTIONIST 11/28/2020 S83.282D Other tear of latera l meniscus, current injury, left knee, subsequent encounter Danamarie Ortolano, CHIEF PROJECTIONIST 11/28/2020 M17.12 Unilateral primary osteoarthriti s, left knee Danamarie Ortolano, CHIEF PROJECTIONIST 11/22/2020 S83.282D Other tear of latera l meniscus, current injury, left knee, subsequent encounter Dominique Redmond, MSPT 11/22/2020 M17.12 Unilateral primary osteoarthriti s, left knee Dominique Redmond, [facility] 11/20/2020 S83.282D Other tear of latera l meniscus, current injury, left knee, subsequent encounter Danamarie Ortolano, CHIEF PROJECTIONIST 11/20/2020 M17.12 Unilateral primary osteoarthriti s, left knee Danamarie Ortolano, CHIEF PROJECTIONIST 11/13/2020 S83.282D Other tear of latera l meniscus, current injury, left knee, subsequent encounter Danamarie Ortolano, CHIEF PROJECTIONIST 11/13/2020 M17.12 Unilateral primary osteoarthriti s, left knee Danamarie Ortolano, CHIEF PROJECTIONIST 10/10/2020 S83.282D Other tear of latera l meniscus, current injury, left knee, subsequent encounter Danamarie Ortolano, CHIEF PROJECTIONIST 10/10/2020 M17.12 Unilateral primary osteoarthriti s, left knee Danamarie Ortolano, CHIEF PROJECTIONIST 10/08/2020 S83.282D Other tear of latera l meniscus, current injury, left knee, subsequent encounter Danamarie Ortolano, CHIEF PROJECTIONIST 10/08/2020 M17.12 Unilateral primary osteoarthriti s, left knee Danamarie Ortolano, CHIEF PROJECTIONIST 10/03/2020 S83.282D Other tear of latera l meniscus, current injury, left knee, subsequent encounter Dominique Redmond, MSPT 10/03/2020 M17.12 Unilateral primary osteoarthriti s, left knee Dominique Redmond, [facility] 10/01/2020 S83.282D Other tear of latera l meniscus, current injury, left knee, subsequent encounter Danamarie Ortolano, CHIEF PROJECTIONIST 10/01/2020 M17.12 Unilateral primary osteoarthriti s, left knee Danamarie Ortolano, CHIEF PROJECTIONIST 09/26/2020 S83.282D Other tear of latera l meniscus, current injury, left knee, subsequent encounter Danamarie Ortolano, CHIEF PROJECTIONIST 09/26/2020 M17.12 Unilateral primary osteoarthriti s, left knee Danamarie Ortolano, CHIEF PROJECTIONIST 09/24/2020 S83.282D Other tear of latera l meniscus, current injury, left knee, subsequent encounter Danamarie Ortolano, CHIEF PROJECTIONIST 09/24/2020 M17.12 Unilateral primary osteoarthriti s, left knee Danamarie Ortolano, CHIEF PROJECTIONIST 09/19/2020 S83.282D Other tear of latera l [...] Appointment(s):* 12/28/2020 2:00 pm - Colby Bustillo, CHIEF PROJECTIONIST at Physical Therapy * 12/25/2020 2:00 pm - Colby Bustillo, CHIEF PROJECTIONIST at Physical Therapy * 12/20/2020 4:30 pm - Colby Bustillo, CHIEF PROJECTIONIST at Physical Therapy * 12/21/2020 11:00 am - Deana Baker MD at [place] Functional Status Description No Information Available Mental Status Description No Information Available Referrals Refer to Dr Reason for Referral Status Appt Date Colby Bustillo, CHIEF PROJECTIONIST PT AUTH GOOD FOR EVAL THAN AUTH DUE TO MED NESS. SS Created [address] [place] [phone] Roseanne Baron MD PT - UNL VISITS OK'D FOR L K NEE FROM 12/03-, RESP# [id number]. SS Created [address] [place] [address] [place] [address] [phone] Roseanne Baron MD PT BASED ON MED. [facility] TO PT DEPT. NT Cre ated [address] [place] [address] [phone] Roseanne Baron MD MRI NO AUTH REQUIRED FOR MRI OF LEFT KNEE ([id number]) TO MRI. ERNESTO Created [address] [place] [address] [phone] Roseanne Baron MD MRI NO AUTH REQUIRED FOR MRI OF LEFT KNEE ([id number]) TO MRI. ERNESTO Created [address] [place] [address] [phone]
--- OUTSIDE RECORDS SUMMARY | 2021-01-11 09:32 | CCD ---
Author Author [facility] Organization [facility] Address Unknown Phone Unavailable Care Team Providers Care Incendiary Powder Mixer Name Role Phone Magalis Reynoso Unavailable PROBLEMS Type Condition ICD9-CM Code [id number] Code Onset Dates Condition S tatus SNOMED Code Notes Problem Mild persistent asthma without complication J45.30 Active 279106312 Problem History of anemia Z86.2 Active 387819590 Problem Sinusitis, unspecified chronicity, unspecified location J32.9 Active 95073001 Problem Mild persistent asthma, uncomplicated J45.30 Ac tive 728382148 Problem Gastroesophageal reflux disease without esophagitis K21.9 Active 010671500 Problem History of vitamin D deficiency Z86.39 Active 55762426397404 Problem 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 Active 01308 1001 Problem Aortic valve stenosis, mild I35.0 Active 6057 3004 ALLERGIES Allergen (clinical drug ingredient) Drug/Non Drug Allergy do cumented on EMR Reaction Allergy Type Onset Date Status Sulfa (for allergy use only) Rash Drug Allergy Active vancomycin Vancomycin HCl(NDC Code:[address]-16) Rash Drug All ergy Active celecoxib Celebrex(NDC Code:[address]-60) Hives, itching,swelli ng Drug Allergy Active clindamycin Clindamycin HCl(NDC Code:[address]-38) Rash Drug A llergy Active cephalexin Cephalexin(NDC Code:[address]-48) Rash Drug Allergy Active naproxen Naproxen(NDC Code:[address]-59) Rash Drug Allergy Active Lactose(NDC Code:[address]-51) intolerant Drug Allergy Active sulfamethoxazole / trimethoprim Bactrim([facility] Code:[address]-65) Rash Drug Allergy Active erythromycin Erythromycin([facility] Code:[address]-50) swelling Drug All ergy Active ENCOUNTERS from 1981 to 2020-12-11 Encounter Location Date Provider Diagnosis [facility] [address] [place] [address] Nov, 2020 Magalis Reynoso 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 IMMUNIZATIONS Vaccine Route Administration Date Status Influenza [...] Education Language: Question Answer Notes Languages spoken: Cuban Muslim: Question Answer Notes Muslim 33 None [...] Information RESULTS No Results REASON FOR VISIT Prescription refill MEDICAL (GENERAL) HISTORY Type Description Date Medical [...] Treatment Notes Treatm ent Clinical Notes Nov, Chronic pain due to trauma (ICD-10 - G89.21) PLAN OF TREATMENT Medication Medication Name Sig Start Date Stop Date Acetaminophen-Codeine #3 300-30 MG 1 tablet as needed Orally every 6 hrs (MDD=4) for 30 days Next Appt Details Provider Name:Magalis Reynoso, 2020-05- 02:45:00 PM, [address] [place], [address], Insurance Providers Payer Name Payer Address Payer Phone Insured Name Patient Relati onship to Insured Coverage Start Date Coverage End Date MEDICAID [employer] [address] [facility] [id number] JOSE FOWLER [facility] [address] [address] [facility] [address] JOSE FOWLER self
--- OUTSIDE RECORDS SUMMARY | 2021-01-11 09:32 | CCD ---
Author Author [facility] Organization [facility] Address Unknown Phone Unavailable Care Team Providers Care Credit Reference Clerk Name Role Phone Magalis Reynoso Unavailable PROBLEMS Type Condition ICD9-CM Code PZV59-BM Code Onset Dates Condition S tatus SNOMED Code Notes Problem Mild persistent asthma without complication J45.30 Active 474706386 Problem History of anemia Z86.2 Active 739525667 Problem Sinusitis, unspecified chronicity, unspecified location J32.9 Active 80369979 Problem Mild persistent asthma, uncomplicated J45.30 Ac tive 213227058 Problem Gastroesophageal reflux disease without esophagitis K21.9 Active 782458612 Problem History of vitamin D deficiency Z86.39 Active 69370793972276 Problem 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 Active 55030 1001 Problem Aortic valve stenosis, mild I35.0 Active 6057 3004 ALLERGIES Allergen (clinical drug ingredient) Drug/Non Drug Allergy do cumented on EMR Reaction Allergy Type Onset Date Status Sulfa (for allergy use only) Rash Drug Allergy Active vancomycin Vancomycin HCl(NDC Code:[address]-40) Rash Drug All ergy Active celecoxib Celebrex(NDC Code:[address]-94) Hives, itching,swelli ng Drug Allergy Active clindamycin Clindamycin HCl(NDC Code:[address]-96) Rash Drug A llergy Active cephalexin Cephalexin(NDC Code:[address]-87) Rash Drug Allergy Active naproxen Naproxen(NDC Code:[address]-55) Rash Drug Allergy Active Lactose(NDC Code:[address]-79) intolerant Drug Allergy Active sulfamethoxazole / trimethoprim Bactrim([facility] Code:[address]-16) Rash Drug Allergy Active erythromycin Erythromycin([facility] Code:[address]-82) swelling Drug All ergy Active ENCOUNTERS from 1981 to 2020-12-07 Encounter Location Date [facility] [address] [place] [address] Nov, Magalis Reynoso IMMUNIZATIONS Vaccine Route Administration Date [...] Education Language: Question Answer Notes Languages spoken: Yakut Tenriism: Question Answer Notes Tenriism 33 None Sexual Hx: Question Answer Notes [...] Notes Start Da te End Date Status Doxycycline Monohydrate 100 MG 1 capsule Orally twice a day for 5 day(s) Apr, Not-Taking Cholestyramine 4 GM 1 packet mixed with water or non-carbonated drink Orally Twice a day for 90 day(s) May, Active Montelukast Sodium 10 MG 1 tablet Oral Once a day for 90 day(s) Active Advair HFA 230-21 MCG/ACT 2 puffs Inhalation Twice a day 2 0 Dec, 2019 Active Fosamax 70 MG 1 tablet 30 minutes before t he first food, beverage or medicine of the day with plain water Orally weekly for 90 days Sep, Active Omeprazole 40 MG 1 capsule 30 minutes before morning meal Oral Daily for 90 days Active Fluticasone Propionate 50 MCG/ACT 1 spray in each nost ril Nasal Once a day for 30 Days Active Baclofen 10 MG TAKE 1 TABLET BY MOUTH ONCE NIGHTLY BEFORE BEDTIME WITH FOOD OR MILK Active Doxycycline Monohydrate 100 MG 1 tablet Orally Twice a day for 7 day(s) Sep, Active Albuterol Sulfate HFA 108 (90 Base) MCG/ACT 1 puff as needed Inhalation every 4 hrs Active PredniSONE 20 MG 2 tablets Orally Once a day Nov, Active Claritin 10 MG 1 tablet Orally Once a day for 90 day(s) Active PredniSONE 10 MG 3 tablets Orally Once a day for 5 days Apr, Not-Taking Acetaminophen-Codeine #3 300-30 MG 1 tablet as needed Orally every 6 hrs for 30 Days Active PROCEDURES No Information RESULTS No Results REASON FOR VISIT ERROR MEDICAL (GENERAL) HISTORY Type Description Date Medical [...] Information ASSESSMENTS No Information PLAN OF TREATMENT Next Appt Details Provider Name:Magalis Reynoso, 02:45:00 PM, [address] [place], [address], Insurance Providers Payer Name Payer Address Payer Phone Insured Name Patient Relati onship to Insured Coverage Start Date Coverage End Date [employer] [address] [address] [facility] [phone] JOSE FOWLER MEDICAID [employer] [address] [facility] [address] JOSE FOWLER self
--- OUTSIDE RECORDS SUMMARY | 2021-01-11 09:32 | CCD | Continuity of Care Document ---
Author Author Roberta REDMOND [facility] Organization Unknown Address [address] [place] [address] Phone [phone] Care Team Providers Care Sales Professional Bilingual Name Role Phone Magalis Reynoso [facility] AUTM [phone] Problems Description No Information Available Social History [...] Information Available Procedures Date Code Description Status 12/05/2020 99894 Therapeutic Procedure, Each 15 M inutes Completed 11/30/2020 98286 Therapeutic Procedure, Each 15 M inutes Completed 11/28/2020 88052 Therapeutic Procedure, Each 15 M inutes Completed 11/22/2020 94303 Therapeutic Procedure, Each 15 M inutes Completed 11/20/2020 16978 Therapeutic Procedure, Each 15 M inutes Completed 11/13/2020 80378 Therapeutic Procedure, Each 15 M inutes Completed 10/10/2020 07432 Therapeutic Procedure, Each 15 M inutes Completed 10/08/2020 07581 Therapeutic Procedure, Each 15 M inutes Completed 10/03/2020 11664 Therapeutic Procedure, Each 15 M inutes Completed 10/01/2020 41375 Therapeutic Procedure, Each 15 M inutes Completed 09/26/2020 33301 Therapeutic Procedure, Each 15 M inutes Completed 09/24/2020 72754 Therapeutic Procedure, Each 15 M inutes Completed 09/19/2020 23510 Physical Therapy Eval - Low Comp lexity Completed 08/20/2020 84646 MRI Lower Extremity Any Joint Co mpleted 08/20/2020 57922 MRI Lower Extremity Any Joint Co mpleted [...] initial encounter Assessments Date Code Description Provider 12/05/2020 S83.282D Other tear of latera l meniscus, current injury, left knee, subsequent encounter Danamarie Ortolano, BATTERY STARTER 12/05/2020 M17.12 Unilateral primary osteoarthriti s, left knee Danamarie Ortolano, BATTERY STARTER 11/30/2020 S83.282D Other tear of latera l meniscus, current injury, left knee, subsequent encounter Danamarie Ortolano, BATTERY STARTER 11/30/2020 M17.12 Unilateral primary osteoarthriti s, left knee Danamarie Ortolano, BATTERY STARTER 11/28/2020 S83.282D Other tear of latera l meniscus, current injury, left knee, subsequent encounter Danamarie Ortolano, BATTERY STARTER 11/28/2020 M17.12 Unilateral primary osteoarthriti s, left knee Danamarie Ortolano, BATTERY STARTER 11/22/2020 S83.282D Other tear of latera l meniscus, current injury, left knee, subsequent encounter Dominique Redmond, [facility] 11/22/2020 M17.12 Unilateral primary osteoarthriti s, left knee Dominique Redmond, [facility] 11/20/2020 S83.282D Other tear of latera l meniscus, current injury, left knee, subsequent encounter Danamarie Ortolano, BATTERY STARTER 11/20/2020 M17.12 Unilateral primary osteoarthriti s, left knee Danamarie Ortolano, BATTERY STARTER 11/13/2020 S83.282D Other tear of latera l meniscus, current injury, left knee, subsequent encounter Danamarie Ortolano, BATTERY STARTER 11/13/2020 M17.12 Unilateral primary osteoarthriti s, left knee Danamarie Ortolano, BATTERY STARTER 10/10/2020 S83.282D Other tear of latera l meniscus, current injury, left knee, subsequent encounter Danamarie Ortolano, BATTERY STARTER 10/10/2020 M17.12 Unilateral primary osteoarthriti s, left knee Danamarie Ortolano, BATTERY STARTER 10/08/2020 S83.282D Other tear of latera l meniscus, current injury, left knee, subsequent encounter Danamarie Ortolano, BATTERY STARTER 10/08/2020 M17.12 Unilateral primary osteoarthriti s, left knee Danamarie Ortolano, BATTERY STARTER 10/03/2020 S83.282D Other tear of latera l meniscus, current injury, left knee, subsequent encounter Dominique Redmond, [facility] 10/03/2020 M17.12 Unilateral primary osteoarthriti s, left knee Dominique MicheleBrie Redmond, [facility] 10/01/2020 S83.282D Other tear of latera l meniscus, current injury, left knee, subsequent encounter Danamarie Ortolano, BATTERY STARTER 10/01/2020 M17.12 Unilateral primary osteoarthriti s, left knee Danamarie Ortolano, BATTERY STARTER 09/26/2020 S83.282D Other tear of latera l meniscus, current injury, left knee, subsequent encounter Danamarie Ortolano, BATTERY STARTER 09/26/2020 M17.12 Unilateral primary osteoarthriti s, left knee Danamarie Ortolano, BATTERY STARTER 09/24/2020 S83.282D Other tear of latera l meniscus, current injury, left knee, subsequent encounter Danamarie Ortolano, BATTERY STARTER 09/24/2020 M17.12 Unilateral primary osteoarthriti s, left knee Danamarie Ortolano, BATTERY STARTER 09/19/2020 S83.282D Other tear of latera l meniscus, current injury, left knee, subsequent encounter Dominique LenyBrie Redmond, [facility] 09/19/2020 M17.12 Unilateral primary osteoarthriti s, left knee Dmoinique LenyBrie Redmond, [facility] 09/11/2020 S83.282A Other tear of latera l [...] Treatment Future Appointment(s):* 12/17/2020 2:00 pm - Danamarie Ortolano, BATTERY STARTER at Physical Therapy * 12/21/2020 1:00 pm - Danamarie Ortolano, BATTERY STARTER at Physical Therapy * 12/14/2020 2:00 pm - Danamarie Ortolano, BATTERY STARTER at Physical Therapy * 12/21/2020 11:00 am - Deana Baker MD at [place] Functional Status Description No Information Available Mental Status Description No Information Available Referrals Refer to Reason for Referral Status Appt Date Roseanne Baron MD PT BASED ON MED. [facility] TO PT DEPT. NT Cre ated [address] [place] [address] [phone] Roseanne Baron MD MRI NO AUTH REQUIRED FOR MRI OF LEFT KNEE ([id number]) TO MRI. DG Created [facility] [place] [address] [phone] Roseanne Baron MD MRI NO AUTH REQUIRED FOR MRI OF LEFT KNEE (10009) TO MRI. DG Created [facility] [place] [address] [phone]
--- OUTSIDE RECORDS SUMMARY | 2021-01-11 09:33 | CCD ---
Author Author [facility] Organization [facility] Address Unknown Phone Unavailable Care Team Providers Care Kettle Cook Name Role Phone ROSEANNE SEQUEIRA MD Unavailable Unavailable ROSEANNE SEQUEIRA MD Unavailable Unavailable ROSEANNE SEQUEIRA MD Unavailable Unavailable ROSEANNE SEQUEIRA MD Unavailable Unavailable ROSEANNE SEQUEIRA MD Unavailable Unavailable ROSEANNE SEQUEIRA MD Unavailable Unavailable ROSEANNE SEQUEIRA MD Unavailable Unavailable ROSEANNE SEQUEIRA MD Unavailable Unavailable ROSEANNE SEQUEIRA MD Unavailable Unavailable ROSEANNE SEQUEIRA MD Unavailable Unavailable ROSEANNE SEQUEIRA MD Unavailable Unavailable ROSEANNE SEQUEIRA MD Unavailable Unavailable ROSEANNE SEQUEIRA MD Unavailable Unavailable ROSEANNE SEQUEIRA MD Unavailable Unavailable ROSEANNE SEQUEIRA MD Unavailable Unavailable ROSEANNE SEQUERIA MD Unavailable Unavailable ROSEANNE SEQUEIRA MD Unavailable Unavailable ROSEANNE SEQUEIRA MD Unavailable Unavailable ROSEANNE SEQUEIRA MD Unavailable Unavailable ROSEANNE SEQUEIRA MD Unavailable Unavailable ROSEANNE SEQUEIRA MD Unavailable Unavailable ROSEANNE SEQUEIRA MD Unavailable Unavailable ROSEANNE SEQUEIRA MD Unavailable Unavailable ROSEANNE SEQUEIRA MD Unavailable Unavailable ROSEANNE SEQUEIRA MD Unavailable Unavailable ROSEANNE SEQUEIRA MD Unavailable Unavailable ROSEANNE SEQUEIRA MD Unavailable Unavailable ROSEANNE SEQUEIRA MD Unavailable Unavailable ROSEANNE SEQUEIRA MD Unavailable Unavailable ROSEANNE SEQUEIRA MD Unavailable Unavailable Emma Elena MD Unavailable Unavailable Emma Elena MD Unavailable Unavailable Emma Elena MD Unavailable Unavailable Emma Elena MD Unavailable Unavailable Emma Elena MD Unavailable Unavailable Emma Elena MD Unavailable Unavailable Emma Elena MD Unavailable Unavailable Emma Elena MD Unavailable Unavailable Emma Elena MD Unavailable Unavailable Emma Elena MD Unavailable Unavailable Emma Elena MD Unavailable Unavailable Emma Elena MD Unavailable Unavailable Emma Elena MD Unavailable Unavailable Emma Elena MD Unavailable Unavailable Emma Elena MD Unavailable Unavailable Emma Elena MD Unavailable Unavailable Emma Elena MD Unavailable Unavailable Emma Elena MD Unavailable Unavailable Emma Elena MD Unavailable Unavailable Emma Elena MD Unavailable Unavailable Emma Elena MD Unavailable Unavailable Emma Elena MD Unavailable Unavailable Emma Elena MD Unavailable Unavailable Emma Elena MD Unavailable Unavailable Emma Elena MD Unavailable Unavailable Emma Elena MD Unavailable Unavailable Emma Elena MD Unavailable Unavailable Emma Elena MD Unavailable Unavailable Emma Elena MD Unavailable Unavailable Emma Elena MD Unavailable Unavailable Emma Elena MD Unavailable Unavailable Emma Elena MD Unavailable Unavailable Emma Elena MD Unavailable Unavailable Emma Elena MD Unavailable Unavailable Emma Elena MD Unavailable Unavailable Emma Elena MD Unavailable Unavailable Emma Elena MD Unavailable Unavailable Emma Elena MD Unavailable Unavailable Emma Elena MD Unavailable Unavailable Emma Elena MD Unavailable Unavailable Emma Elena MD Unavailable Unavailable Emma Elena MD Unavailable Unavailable Emma Elena MD Unavailable Unavailable Emma Elena MD Unavailable Unavailable Emma Elena MD Unavailable Unavailable Emma Elena MD Unavailable Unavailable Emma Elena MD Unavailable Unavailable Emma Elena MD Unavailable Unavailable Emma Elena MD Unavailable Unavailable Emma Elena MD Unavailable Unavailable Emma Elena MD Unavailable Unavailable Emma Elena MD Unavailable Unavailable Emma Elena MD Unavailable Unavailable Emma Elena MD Unavailable Unavailable Emma Elena MD Unavailable Unavailable Emma Elena MD Unavailable Unavailable Emma Elena MD Unavailable Unavailable Emma Elena MD Unavailable Unavailable MAURICE, GODWIN MEHRDAD PANEL INSTALLER-C Unavailable Unavailable MAURICE, GODWIN MEHRDAD PANEL INSTALLER-C Unavailable Unavailable MAURICE, GODWIN MEHRDAD PANEL INSTALLER-C Unavailable Unavailable MAURICE, GODWIN MEHRDAD PANEL INSTALLER-C Unavailable Unavailable MAURICE, GODWIN MEHRDAD PANEL INSTALLER-C Unavailable Unavailable MAURICE, GODWIN MEHRDAD PANEL INSTALLER-C Unavailable Unavailable MAURICE, GODWIN MEHRDAD PANEL INSTALLER-C Unavailable Unavailable MAURICE, GODWIN MEHRDAD PANEL INSTALLER-C Unavailable Unavailable MAURICE, GODWIN MEHRDAD PANEL INSTALLER-C Unavailable Unavailable MAURICE, GODWIN MEHRDAD PANEL INSTALLER-C Unavailable Unavailable MAURICE, GODWIN MEHRDAD PANEL INSTALLER-C Unavailable Unavailable MAURICE, GODWIN MEHRDAD PANEL INSTALLER-C Unavailable Unavailable MAURICE, GODWIN MEHRDAD PANEL INSTALLER-C Unavailable Unavailable MAURICE, GODWIN MEHRDAD PANEL INSTALLER-C Unavailable Unavailable MAURICE, GODWIN MEHRDAD PANEL INSTALLER-C Unavailable Unavailable MAURICE, GODWIN MEHRDAD PANEL INSTALLER-C Unavailable Unavailable Demetrio, David Castro MD Unavailable Unavailable Abriss, David Castro MD Unavailable Unavailable Abriss, David Castro MD Unavailable Unavailable Abriss, David Castro MD Unavailable Unavailable Abrjeraym, David Castro MD Unavailable Unavailable Abrjeramy, David Castro MD Unavailable Unavailable Abrjeramy, David Castro MD Unavailable Unavailable Abrjeramy, David Castro MD Unavailable Unavailable Abrjeramy, David Castro MD Unavailable Unavailable Abrjeramy, David Castro MD Unavailable Unavailable Abrjeramy, David Castro MD Unavailable Unavailable Abrjeramy, David Castro MD Unavailable Unavailable Abrjeramy, David Castro MD Unavailable Unavailable Abrjeramy, David Castro MD Unavailable Unavailable Abrjeramy, David Castro MD Unavailable Unavailable Abrjeramy, David Castro MD Unavailable Unavailable Abrjeramy, David Castro MD Unavailable Unavailable Demetrio, David Castro MD Unavailable Unavailable Billy Baker MD Unavailable Unavailable Billy Baker MD Unavailable Unavailable Billy Baker MD Unavailable Unavailable Billy Baker MD Unavailable Unavailable Billy Baker MD Unavailable Unavailable Billy Baker MD Unavailable Unavailable Billy Baker MD Unavailable Unavailable Billy Baker MD Unavailable Unavailable Billy Baker MD Unavailable Unavailable Billy Baker MD Unavailable Unavailable Billy Baker MD Unavailable Unavailable Billy Baker MD Unavailable Unavailable Billy Baker MD Unavailable Unavailable Billy Baker MD Unavailable Unavailable Vaneenenaam, Billy Hoyt MD Unavailable Unavailable Vaneenenaam, Billy Hoyt MD Unavailable Unavailable Vaneenenaam, Billy Hoyt MD Unavailable Unavailable Vaneenenaam, Billy Hoyt MD Unavailable Unavailable Vaneenenaam, Billy Hoyt MD Unavailable Unavailable Vaneenenaam, Billy Hoyt MD Unavailable Unavailable Vaneenenaam, Billy Hoyt MD Unavailable Unavailable Vaneenenaam, Billy Hoyt MD Unavailable Unavailable Vaneenenaam, Billy Hoyt MD Unavailable Unavailable Vaneenenaam, Billy Hoyt MD Unavailable Unavailable Vaneenenaam, Billy Hoyt MD Unavailable Unavailable Vaneenenaam, Billy Hoyt MD Unavailable Unavailable Vaneenenaam, Billy Hoyt MD Unavailable Unavailable Vaneenenaam, Billy Hoyt MD Unavailable Unavailable Vaneenenaam, Billy Hoyt MD Unavailable Unavailable Vaneenenaam, Billy Hoyt MD Unavailable Unavailable Vaneenenaam, Billy Hoyt MD Unavailable Unavailable Vaneenenaam, Billy Hoyt MD Unavailable Unavailable Vaneenenaam, Billy Hoyt MD Unavailable Unavailable Vaneenenaam, Billy Hoyt MD Unavailable Unavailable Vaneenenaam, Billy Hoyt MD Unavailable Unavailable Vaneenenaam, Billy Hoyt MD Unavailable Unavailable Vaneenenaam, Billy Hoyt MD Unavailable Unavailable Vaneenenaam, Billy Hoyt MD Unavailable Unavailable Vaneenenaam, Billy Hoyt MD Unavailable Unavailable Vaneenenaam, Billy Hoyt MD Unavailable Unavailable Vaneenenaam, Billy Hoyt MD Unavailable Unavailable Vaneenenaam, Billy Hoyt MD Unavailable Unavailable Bowden, Melvin Gomez MD Unavailable Unavailable Bowden, Melvin Gomez MD Unavailable Unavailable Bowden, Melvin Gomez MD Unavailable Unavailable Bowden, Melvin Gomez MD Unavailable Unavailable Bowden, Melvin oGmez MD Unavailable Unavailable Bowden, Melvin Gomez MD Unavailable Unavailable Bowden, Melvin Gomez MD Unavailable Unavailable Bowden, Melvin Gomez MD Unavailable Unavailable Bowden, Melvin Gomez MD Unavailable Unavailable Bowden, Melvin Gomez MD Unavailable Unavailable Bowden, Melvin Gomez MD Unavailable Unavailable BowdenMelvin MD Unavailable Unavailable BowdenMelvin MD Unavailable Unavailable BowdenMelvin MD Unavailable Unavailable BowdenMelvin gómez MD Unavailable Unavailable BowdenMelvin gómez MD Unavailable Unavailable Bowden, Melvin Gomez MD Unavailable Unavailable Bowden, Melvin Gomez MD Unavailable Unavailable Bowden, Melvin Gomez MD Unavailable Unavailable Bowden, Melvin Gomez MD Unavailable Unavailable BowdenMelvin MD Unavailable Unavailable BowdenMelvin gómez MD Unavailable Unavailable Bowden, Melvin Gomez MD Unavailable Unavailable Bowden, Melvin Gomez MD Unavailable Unavailable Bowden, Melvin Gomez MD Unavailable Unavailable Bowden, Melvin Gomez MD Unavailable Unavailable Bowden, Melvin Gomez MD Unavailable Unavailable Bowden, Melvin Gomez MD Unavailable Unavailable Bowden, L Jason BOND Unavailable Unavailable Bowden, L Jason BOND Unavailable Unavailable Bowden, L Jason BOND Unavailable Unavailable Bowden, L Jason BOND Unavailable Unavailable Bowden, L Jason BOND Unavailable Unavailable Bowden, L Jason BOND Unavailable Unavailable Bowden, L Jason BOND Unavailable Unavailable Bowden, L Jason BOND Unavailable Unavailable Bowden, L Jason BOND Unavailable Unavailable Bowden, L Jason BOND Unavailable Unavailable Bowden, L Jason BOND Unavailable Unavailable Bowden, L Jason BOND Unavailable Unavailable Bowden, L Jason BOND Unavailable Unavailable Bowden, L Jason BOND Unavailable Unavailable Bowden, L Jason BOND Unavailable Unavailable Bowden, L Jason MD Unavailable Unavailable Bowden, L Jason BOND Unavailable Unavailable Bowden, L Jason BOND Unavailable Unavailable Bodwen, L Jason BOND Unavailable Unavailable Bowden, L Jason BOND Unavailable Unavailable SEQUEIRA, ROSEANNE MD Unavailable Unavailable SEQUEIRA, ROSEANNE MD Unavailable Unavailable SEQUEIRA, ROSEANNE MD Unavailable Unavailable SEQUEIRA, ROSEANNE MD Unavailable Unavailable SEQUEIRA, ROSEANNE MD Unavailable Unavailable SEQUEIRA, ROSEANNE MD Unavailable Unavailable SEQUEIRA, ROSEANNE MD Unavailable Unavailable SEQUEIRA, ROSEANNE MD Unavailable Unavailable SEQUEIRA, ROSEANNE MD Unavailable Unavailable SEQUEIRA, ROSEANNE MD Unavailable Unavailable SEQUEIRA, ROSEANNE MD Unavailable Unavailable SEQUEIRA, ROSEANNE MD Unavailable Unavailable SEQUEIRA, ROSEANNE MD Unavailable Unavailable SEQUEIRA, ROSEANNE MD Unavailable Unavailable SEQUEIRA, ROSEANNE MD Unavailable Unavailable SEQUEIRA, ROSEANNE MD Unavailable Unavailable SEQUEIRA, ROSEANNE MD Unavailable Unavailable SEQUEIRA, ROSEANNE MD Unavailable Unavailable SEQUEIRA, ROSEANNE MD Unavailable Unavailable SEQUEIRA, ROSEANNE MD Unavailable Unavailable SEQUEIRA, ROSEANNE MD Unavailable Unavailable SEQUEIRA, ROSEANNE MD Unavailable Unavailable SEQUEIRA, ROSEANNE MD Unavailable Unavailable SEQUEIRA, ROSEANNE MD Unavailable Unavailable SEQUEIRA, ROSEANNE MD Unavailable Unavailable SEQUEIRA, ROSEANNE MD Unavailable Unavailable SEQUEIRA, ROSEANNE MD Unavailable Unavailable SEQUEIRA, ROSEANNE MD Unavailable Unavailable SEQUEIRA, ROSEANNE MD Unavailable Unavailable SEQUEIRA, ROSEANNE MD Unavailable Unavailable Re-disclosure Warning The records that you are about to access may contain information from federally-assisted alcohol or drug abuse programs. If such information is present, then the following federally mandated warning applies: This information has been disclosed to you from records protected by federal confidentiality rules (42 CFR part 2). The federal rules prohibit you from making any further disclosure of this information unless further disclosure is expressly permitted by the written consent of the person to whom it pertains or as otherwise permitted by 42 CFR part 2. A general authorization for the release of medical or other information is NOT sufficient for this purpose. The Federal rules restrict any use of the information to criminally investigate or prosecute any alcohol or drug abuse patient.The records that you are about to access may contain highly sensitive health information, the redisclosure of which is protected by Article 27-F of the [facility] Public Health law. If you continue you may have access to information: Regarding HIV / AIDS; Provided by facilities licensed or operated by the [facility] Office of Mental Health; or Provided by the [facility] Office for People With Developmental Disabilities. If such information is present, then the following [facility] mandated warning applies: This information has been disclosed to you from confidential records which are protected by state law. State law prohibits you from making any further disclosure of this information without the specific written consent of the person to whom it pertains, or as otherwise permitted by law. Any unauthorized further disclosure in violation of state law may result in a fine or mcc sentence or both. A general authorization for the release of medical or other information is NOT sufficient authorization for further disc losure. Allergies and Adverse Reactions Type Description Substance Reaction Status Data Source(s ) Drug allergy Bactrim sulfamethoxazole / trimethoprim Rash Ac tive eCW1 ([facility]) Drug allergy Lactose Drug allergy intolerant Active eCW1 ([facility]) Drug allergy Naproxen Naproxen Rash Active eCW1 ([facility]) Drug allergy Cephalexin Cephalexin Rash Active eCW1 ([facility]) Drug allergy Celebrex celecoxib Hives, itching,swelling Active eCW1 ([facility]) Drug allergy Vancomycin HCl Vancomycin Rash Active eCW1 ([facility]) Drug allergy Clindamycin HCl Clindamycin Rash Active eCW1 ( [facility]) Erythromycin Erythromycin Erythromycin swelling Active eCW1 ([facility]) Encounters Encounter Providers Location Date Indications Data Source(s ) Unknown [address] [facility] [address] 12/26/2020 12:00:00 AM EST eCW1 ([facility]) Outpatient Attender: Jason Bowden MD Physical Therapy 12/24/2020 0 1:00:00 PM EST [facility] ([facility]) OFFICE OUTPATIENT VISIT 15 MINUTES Attender: Billy pratt MD Physical Therapy 12/21/2020 10:00:00 AM EST [facility] ([facility]) Outpatient Attender: Matthew Grimes/Minal/Sage/Re indl 12/19/2020 12:00:00 PM EST [facility] ([facility]) [place] [address] [facility] [address] 12/19/2020 12:00:00 AM EST eCW1 ([facility]) Unknown [address] [facility] [place] [address] 12/08/2020 12:00:00 AM EST eCW1 ([facility]) Unknown [address] [facility] Y [address] 12/07/2020 12:00:00 AM EST eCW1 ([facility]) Unknown [address] [facility] Y [address] 11/30/2020 12:00:00 AM EST eCW1 ([facility]) Outpatient [address] [facility] [place] [address] 11/08/2020 12:00:00 AM EST eCW1 ([facility]) Unknown [address] [facility] [place] [address] 10/25/2020 12:00:00 AM EST eCW1 ([facility]) Unknown [address] [facility] [place] [address] 10/22/2020 12:00:00 AM EST eCW1 ([facility]) Unknown [address] [facility] Y [address] 10/04/2020 12:00:00 AM EST eCW1 ([facility]) Outpatient [address] [facility] Y [address] 10/04/2020 12:00:00 AM EST eCW1 ([facility]) Unknown [address] [facility] Y [address] 09/27/2020 12:00:00 AM EST [facility]CW1 [facility] Outpatient Attender: Billy Baker MD Physical Therap y 09/11/2020 02:15:00 PM EDT [facility] ([facility]) [place] [address] [facility] [address] 09/10/2020 12:00:00 AM EDT eCW1 ([facility]) Unknown [address] [facility] [address] 08/21/2020 12:00:00 AM EDT eCW1 ([facility]) OFFICE OUTPATIENT VISIT 15 MINUTES Attender: Billy pratt MD Physical Therapy 08/15/2020 02:15:00 PM EDT [facility] ([facility]) Unknown [address] [facility] [address] 08/14/2020 12:00:00 AM EDT eCW1 [facility] Unknown [address] [facility] Y [address] 08/14/2020 12:00:00 AM EDT [facility]CW1 [facility] Outpatient Attender: MEHRDAD Grimes/Minal/Sage/Bety saenz 07/19/2020 02:45:00 PM EDT [facility] ([facility] [address] [facility] [address] 07/03/2020 12:00:00 AM EDT eCW1 ([facility]) Unknown [address] [facility] [address] 06/12/2020 12:00:00 AM EDT eCW1 ([facility]) Unknown [address] [facility] [place] [address] 06/11/2020 12:00:00 AM EDT eCW1 ([facility]) Unknown [address] [facility] [address] 06/08/2020 12:00:00 AM EDT eCW1 ([facility]) [place]patient [address] [facility] [address] 06/04/2020 12:00:00 AM EDT eCW1 ([facility]) TeleMedicine Est. Pt. Level 3 [address] [place] [address] 04/10/2020 12:00:00 AM EDT eCW1 ([facility]) [place] [address] [facility] [address] 04/09/2020 12:00:00 AM EDT eCW1 ([facility]) Outpatient Attender: MEHRDAD Grimes/[place]/Sage/R eindl 03/13/2020 03:15:00 PM EDT [facility] ([facility]) Outpatient Referrer: ROSEANNE SEQUEIRA MD 03/07/2020 02:52:0 0 PM EDT [facility] Outpatient Referrer: ROSEANNE SEQUEIRA MD 03/07/2020 02:50:0 0 PM EDT [facility] Outpatient Referrer: ROSEANNE SEQUEIRA MD 02/28/2020 02:50:0 0 PM EDT [facility] Outpatient Attender: ROSEANNE SEQUEIRA MD Physical Therapy 10:20:00 AM EDT [facility] ([facility]) Outpatient Referrer: ROSEANNE SEQUEIRA MD 02/18/2020 09:58:0 0 AM EDT [facility] Outpatient Referrer: ROSEANNE SEQUEIRA MD 02/18/2020 09:54:0 0 AM EDT [facility] Outpatient Attender: MEHRDAD Grimes/Minal/Sage/R eindl 02/16/2020 03:15:00 PM EDT [facility] ([facility]) Outpatient Referrer: ROSEANNE SEQUEIRA MD 02/14/2020 09:37:0 0 AM EDT [facility] Outpatient Referrer: ROSEANNE SEQUEIRA MD 02/14/2020 08:47:0 0 AM EDT [facility] Outpatient Attender: Emma Elena MD SJBeatriz.VANNESSA-SJPBrieVANNESSA 01/22 12:00:00 AM EDT [facility] Outpatient 02/13/2020 12:35:00 PM EDT [facility] Outpatient 02/13/2020 12:30:00 PM EDT [facility] [address] [facility] [address] 02/11/2020 12:00:00 AM EDT [facility]CW1 [facility] [address] [facility] [address] 02/10/2020 12:00:00 AM EDT eCW1 [facility] [address] [facility] [address] 02/10/2020 12:00:00 AM EDT eCW1 ([facility] [address] [facility] [address] 02/10/2020 12:00:00 AM EDT eCW1 ([facility] OFFICE OUTPATIENT NEW 30 MINUTES Attender: ROSEANNE SEQUEIRA MD Ph ysical Therapy 02/09/2020 02:00:00 PM EDT [facility] ([facility]) [facility] [address] [place] [address] 01/31/2020 12:00:00 AM EDT eCW1 ([facility] [address] [facility] [address] 01/31/2020 12:00:00 AM EDT eCW1 ([facility] [address] [facility] [place] [address] 01/17/2020 12:00:00 AM EST eCW1 ([facility] [address] [facility] [place] [address] 01/16/2020 12:00:00 AM EST [facility]CW[facility] [address] [facility] [place] [address] 01/10/2020 12:00:00 AM EST eCW1 ([facility] [address] [facility] [place] [address] 01/09/2020 12:00:00 AM EST eCW1 [facility] [address] [facility] [place] [address] 01/03/2020 12:00:00 AM EST eCW1 ([facility]) [facility] [address] [facility] [address] 01/03/2020 12:00:00 AM EST eCW1 ([facility]) Immunizations Vaccine Date Status Description Data Source(s) influenza, recombinant, quadrIvalent,injectable, prese rvative free 11/08/2020 02:18:00 PM EST completed eCW1 ([facility]) influenza, recombinant, quadrIvalent,injectable, prese rvative free 11/08/2020 02:18:00 PM EST completed eCW1 ([facility]) influenza, recombinant, quadrIvalent,injectable, prese rvative free 11/08/2020 02:18:00 PM EST completed eCW1 ([facility]) influenza, recombinant, quadrIvalent,injectable, prese rvative free 11/08/2020 02:18:00 PM EST completed eCW1 ([facility]) influenza, recombinant, quadrIvalent,injectable, prese rvative free 11/08/2020 02:18:00 PM EST completed eCW1 ([facility]) influenza, recombinant, quadrIvalent,injectable, prese rvative free 11/08/2020 02:18:00 PM EST completed eCW1 ([facility]) pneumococcal polysaccharide PPV23 06/04/2020 01:26:00 PM EDT comple palma eCW1 ([facility]) pneumococcal polysaccharide PPV23 06/04/2020 01:26:00 PM EDT comple [facility]ma eCW1 ([facility]) pneumococcal polysaccharide PPV23 06/04/2020 01:26:00 PM EDT comple palma eCW1 ([facility]) pneumococcal polysaccharide PPV23 06/04/2020 01:26:00 PM EDT comple palma eCW1 ([facility]) pneumococcal polysaccharide PPV23 06/04/2020 01:26:00 PM EDT comple palma eCW1 ([facility]) pneumococcal polysaccharide PPV23 06/04/2020 01:26:00 PM EDT comple palma eCW1 ([facility]) pneumococcal polysaccharide PPV23 06/04/2020 01:26:00 PM EDT comple palma eCW1 ([facility]) pneumococcal polysaccharide PPV23 06/04/2020 01:26:00 PM EDT comple palma eCW1 ([facility]) pneumococcal polysaccharide PPV23 06/04/2020 01:26:00 PM EDT comple palma eCW1 ([facility]) pneumococcal polysaccharide PPV23 06/04/2020 01:26:00 PM EDT comple palma eCW1 ([facility]) pneumococcal polysaccharide PPV23 06/04/2020 01:26:00 PM EDT comple palma eCW1 ([facility]) pneumococcal polysaccharide PPV23 06/04/2020 01:26:00 PM EDT comple palma eCW1 ([facility]) pneumococcal polysaccharide PPV23 06/04/2020 01:26:00 PM EDT comple palma eCW1 ([facility]) pneumococcal polysaccharide PPV23 06/04/2020 01:26:00 PM EDT comple palma eCW1 ([facility]) pneumococcal polysaccharide PPV23 06/04/2020 01:26:00 PM EDT comple palma eCW1 ([facility]) pneumococcal polysaccharide PPV23 06/04/2020 01:26:00 PM EDT comple palma eCW1 ([facility]) pneumococcal polysaccharide PPV23 06/04/2020 01:26:00 PM EDT comple palma eCW1 ([facility]) pneumococcal polysaccharide PPV23 06/04/2020 01:26:00 PM EDT comple palma eCW1 ([facility]) pneumococcal polysaccharide PPV23 06/04/2020 01:26:00 PM EDT comple palma eCW1 ([facility]) Medications Medication Brand Name Start Date Product Form Dose Route Admi nistrative Instructions Pharmacy Instructions Status Indications Reaction Description Data Source(s) Prednisone 10 MG Oral Tablet Prednisone 12/28/2020 12:00:00 AM EST ORAL active MEDENT ([facility], ) Suprep Bowel Prep Kit Suprep Bowel Prep Kit 12/26/2020 12:00:00 AM EST active MEDENT ([facility], ) POLYETHYLENE GLYCOL 3350 105 MG/ML / Pot assium Chloride 0.84454 MEQ/ML / Sodium Bicarbonate 0.017 MEQ/ML / Sodium Chloride 0.0479 MEQ/ML Oral Solution [GaviLyte-N] Gavilyte-N With Flavor Pack 12/25/2020 12:00:00 AM EST active MEDENT ([facility], ) Bisacodyl 5 MG Delayed Release Oral Tablet [Dulcolax] Dulcol ax 12/25/2020 12:00:00 AM EST active M EDENT ([facility], ) Clenpiq Clenpiq 12/25/2020 12:00:00 AM EST active MEDENT ([facility], ) Diazepam 2 MG Oral Tablet [Valium] Valium 12/24/2020 12:00:00 AM EST ORAL active MEDENT ([facility]) Sucralfate 100 MG/ML Oral Suspension Sucralfate 12/18/2020 12:00:00 A M EST ORAL active MEDENT ([facility], ) Prednisone 20 MG Oral Tablet PredniSONE 20 MG PredniSONE 20 MG 12/07/2020 12:00:00 AM EST 2.0 {tablets} active P redniSONE 20 MG eCW1 ([facility]) Prednisone 20 MG Oral Tablet PredniSONE 20 MG PredniSONE 20 MG 12/07/2020 12:00:00 AM EST 2.0 {tablets} active P redniSONE 20 MG eCW1 ([facility]) Prednisone 20 MG Oral Tablet PredniSONE 20 MG PredniSONE 20 MG 12/07/2020 12:00:00 AM EST 2.0 {tablets} active P redniSONE 20 MG eCW1 ([facility]) Prednisone 20 MG Oral Tablet PredniSONE 20 MG PredniSONE 20 MG 12/07/2020 12:00:00 AM EST 2.0 {tablets} active P redniSONE 20 MG eCW1 ([facility]) Prednisone 20 MG Oral Tablet Prednisone 12/05/2020 12:00:00 AM EST ORAL completed MEDENT ([facility], ) Doxycycline Monohydrate 100 MG Oral Tablet Doxycycline Monoh ydrate 100 MG 10/04/2020 12:00:00 AM EST 1.0 {tablet} active Doxycycline Monohydrate 100 MG eCW1 ([facility]) Doxycycline Monohydrate 100 MG Oral Tablet Doxycycline Monoh ydrate 100 MG 10/04/2020 12:00:00 AM EST 1.0 {tablet} active Doxycycline Monohydrate 100 MG eCW1 ([facility]) Doxycycline Monohydrate 100 MG Oral Tablet Doxycycline Monoh ydrate 100 MG 10/04/2020 12:00:00 AM EST 1.0 {tablet} active Doxycycline Monohydrate 100 MG eCW1 ([facility]) Doxycycline Monohydrate 100 MG Oral Tablet Doxycycline Monoh ydrate 100 MG 10/04/2020 12:00:00 AM EST 1.0 {tablet} active Doxycycline Monohydrate 100 MG eCW1 ([facility]) Doxycycline Monohydrate 100 MG Oral Tablet Doxycycline Monoh ydrate 100 MG 10/04/2020 12:00:00 AM EST 1.0 {tablet} active Doxycycline Monohydrate 100 MG eCW1 ([facility]) Doxycycline Monohydrate 100 MG Oral Tablet Doxycycline Monoh ydrate 100 MG 10/04/2020 12:00:00 AM EST 1.0 {tablet} active Doxycycline Monohydrate 100 MG eCW1 ([facility]) Doxycycline Monohydrate 100 MG Oral Tablet Doxycycline Monoh ydrate 100 MG 10/04/2020 12:00:00 AM EST 1.0 {tablet} active Doxycycline Monohydrate 100 MG eCW1 ([facility]) Doxycycline Monohydrate 100 MG Oral Tablet Doxycycline Monoh ydrate 100 MG 10/04/2020 12:00:00 AM EST 1.0 {tablet} active Doxycycline Monohydrate 100 MG eCW1 ([facility]) Doxycycline Monohydrate 100 MG Oral Tablet Doxycycline Monoh ydrate 100 MG 10/04/2020 12:00:00 AM EST 1.0 {tablet} active Doxycycline Monohydrate 100 MG eCW1 ([facility]) Doxycycline Monohydrate 100 MG Oral Tablet Doxycycline Monoh ydrate 100 MG 10/04/2020 12:00:00 AM EST 1.0 {tablet} active Doxycycline Monohydrate 100 MG eCW1 ([facility]) Alendronic acid 70 MG Oral Tablet [Fosamax] Fosamax 70 MG Fo samax 70 MG 09/28/2020 12:00:00 AM EST active Fosamax 70 MG eCW1 ([facility]) Alendronic acid 70 MG Oral Tablet [Fosamax] Fosamax 70 MG Fo samax 70 MG 09/28/2020 12:00:00 AM EST active Fosamax 70 MG eCW1 ([facility]) Alendronic acid 70 MG Oral Tablet [Fosamax] Fosamax 70 MG Fo samax 70 MG 09/28/2020 12:00:00 AM EST active Fosamax 70 MG eCW1 ([facility]) Alendronic acid 70 MG Oral Tablet [Fosamax] Fosamax 70 MG Fo samax 70 MG 09/28/2020 12:00:00 AM EST active Fosamax 70 MG eCW1 ([facility]) Alendronic acid 70 MG Oral Tablet [Fosamax] Fosamax 70 MG Fo samax 70 MG 09/28/2020 12:00:00 AM EST active Fosamax 70 MG eCW1 ([facility]) Alendronic acid 70 MG Oral Tablet [Fosamax] Fosamax 70 MG Fo samax 70 MG 09/28/2020 12:00:00 AM EST active Fosamax 70 MG eCW1 ([facility]) Alendronic acid 70 MG Oral Tablet [Fosamax] Fosamax 70 MG Fo samax 70 MG 09/28/2020 12:00:00 AM EST active Fosamax 70 MG eCW1 ([facility]) Alendronic acid 70 MG Oral Tablet [Fosamax] Fosamax 70 MG Fo samax 70 MG 09/28/2020 12:00:00 AM EST active Fosamax 70 MG eCW1 ([facility]) Alendronic acid 70 MG Oral Tablet [Fosamax] Fosamax 70 MG Fo samax 70 MG 09/28/2020 12:00:00 AM EST active Fosamax 70 MG eCW1 ([facility]) Alendronic acid 70 MG Oral Tablet [Fosamax] Fosamax 70 MG Fo samax 70 MG 09/28/2020 12:00:00 AM EST active Fosamax 70 MG eCW1 ([facility]) Alendronic acid 70 MG Oral Tablet [Fosamax] Fosamax 70 MG Fo samax 70 MG 09/28/2020 12:00:00 AM EST active Fosamax 70 MG eCW1 ([facility]) Prednisone 20 MG Oral Tablet Prednisone 07/19/2020 12:00:00 AM EDT ORAL completed MEDENT ([facility], ) Cholestyramine Resin 66.7 MG/ML Oral Suspension Choles tyramine 4 GM Cholestyramine 4 GM 06/12/2020 12:00:00 AM EDT 1.0 {packet_mixed_with_water_or_non-carbonated_drink} active Cholestyramine 4 GM eCW1 ([facility]) Cholestyramine Resin 66.7 MG/ML Oral Suspension Choles tyramine 4 GM Cholestyramine 4 GM 06/12/2020 12:00:00 AM EDT 1.0 {packet_mixed_with_water_or_non-carbonated_drink} active Cholestyramine 4 GM eCW1 ([facility]) Cholestyramine Resin 66.7 MG/ML Oral Suspension Choles tyramine 4 GM Cholestyramine 4 GM 06/12/2020 12:00:00 AM EDT 1.0 {packet_mixed_with_water_or_non-carbonated_drink} active Cholestyramine 4 GM eCW1 ([facility]) Cholestyramine Resin 66.7 MG/ML Oral Suspension Choles tyramine 4 GM Cholestyramine 4 GM 06/12/2020 12:00:00 AM EDT 1.0 {packet_mixed_with_water_or_non-carbonated_drink} active Cholestyramine 4 GM eCW1 ([facility]) Cholestyramine Resin 66.7 MG/ML Oral Suspension Choles tyramine 4 GM Cholestyramine 4 GM 06/12/2020 12:00:00 AM EDT 1.0 {packet_mixed_with_water_or_non-carbonated_drink} active Cholestyramine 4 GM eCW1 ([facility]) Cholestyramine Resin 66.7 MG/ML Oral Suspension Choles tyramine 4 GM Cholestyramine 4 GM 06/12/2020 12:00:00 AM EDT 1.0 {packet_mixed_with_water_or_non-carbonated_drink} active Cholestyramine 4 GM eCW1 ([facility]) Cholestyramine Resin 66.7 MG/ML Oral Suspension Choles tyramine 4 GM Cholestyramine 4 GM 06/12/2020 12:00:00 AM EDT 1.0 {packet_mixed_with_water_or_non-carbonated_drink} active Cholestyramine 4 GM eCW1 ([facility]) Cholestyramine Resin 66.7 MG/ML Oral Suspension Choles tyramine 4 GM Cholestyramine 4 GM 06/12/2020 12:00:00 AM EDT 1.0 {packet_mixed_with_water_or_non-carbonated_drink} active Cholestyramine 4 GM eCW1 ([facility]) Cholestyramine Resin 66.7 MG/ML Oral Suspension Choles tyramine 4 GM Cholestyramine 4 GM 06/12/2020 12:00:00 AM EDT 1.0 {packet_mixed_with_water_or_non-carbonated_drink} active Cholestyramine 4 GM eCW1 ([facility]) Cholestyramine Resin 66.7 MG/ML Oral Suspension Choles tyramine 4 GM Cholestyramine 4 GM 06/12/2020 12:00:00 AM EDT 1.0 {packet_mixed_with_water_or_non-carbonated_drink} active Cholestyramine 4 GM eCW1 ([facility]) Cholestyramine Resin 66.7 MG/ML Oral Suspension Choles tyramine 4 GM Cholestyramine 4 GM 06/12/2020 12:00:00 AM EDT 1.0 {packet_mixed_with_water_or_non-carbonated_drink} active Cholestyramine 4 GM eCW1 ([facility]) Cholestyramine Resin 66.7 MG/ML Oral Suspension Choles tyramine 4 GM Cholestyramine 4 GM 06/12/2020 12:00:00 AM EDT 1.0 {packet_mixed_with_water_or_non-carbonated_drink} active Cholestyramine 4 GM eCW1 ([facility]) Cholestyramine Resin 66.7 MG/ML Oral Suspension Choles tyramine 4 GM Cholestyramine 4 GM 06/12/2020 12:00:00 AM EDT 1.0 {packet_mixed_with_water_or_non-carbonated_drink} active Cholestyramine 4 GM eCW1 ([facility]) Cholestyramine Resin 66.7 MG/ML Oral Suspension Choles tyramine 4 GM Cholestyramine 4 GM 06/12/2020 12:00:00 AM EDT 1.0 {packet_mixed_with_water_or_non-carbonated_drink} active Cholestyramine 4 GM eCW1 ([facility]) Cholestyramine Resin 66.7 MG/ML Oral Suspension Choles tyramine 4 GM Cholestyramine 4 GM 06/12/2020 12:00:00 AM EDT 1.0 {packet_mixed_with_water_or_non-carbonated_drink} active Cholestyramine 4 GM eCW1 ([facility]) Cholestyramine Resin 66.7 MG/ML Oral Suspension Choles tyramine 4 GM Cholestyramine 4 GM 06/12/2020 12:00:00 AM EDT 1.0 {packet_mixed_with_water_or_non-carbonated_drink} active Cholestyramine 4 GM eCW1 ([facility]) Cholestyramine Resin 66.7 MG/ML Oral Suspension Choles tyramine 4 GM Cholestyramine 4 GM 06/12/2020 12:00:00 AM EDT 1.0 {packet_mixed_with_water_or_non-carbonated_drink} active Cholestyramine 4 GM eCW1 ([facility]) Doxycycline Monohydrate 100 MG Oral Capsule Doxycycline [place] hydrate 100 MG 05/13/2020 12:00:00 AM EDT 1.0 {capsule} active Doxycycline Monohydrate 100 MG eCW1 ([facility]) Doxycycline Monohydrate 100 MG Oral Capsule Doxycycline [place] hydrate 100 MG 05/13/2020 12:00:00 AM EDT 1.0 {capsule} active Doxycycline Monohydrate 100 MG eCW1 ([facility]) Prednisone 10 MG Oral Tablet PredniSONE 10 MG PredniSONE 10 MG 05/13/2020 12:00:00 AM EDT 3.0 {tablets} suspended PredniSONE 10 MG eCW1 ([facility]) Prednisone 10 MG Oral Tablet PredniSONE 10 MG PredniSONE 10 MG 05/13/2020 12:00:00 AM EDT 3.0 {tablets} active P redniSONE 10 MG eCW1 ([facility]) Prednisone 10 MG Oral Tablet PredniSONE 10 MG PredniSONE 10 MG 05/13/2020 12:00:00 AM EDT 3.0 {tablets} suspended PredniSONE 10 MG eCW1 ([facility]) Prednisone 10 MG Oral Tablet PredniSONE 10 MG PredniSONE 10 MG 05/13/2020 12:00:00 AM EDT 3.0 {tablets} suspended PredniSONE 10 MG eCW1 ([facility]) Doxycycline Monohydrate 100 MG Oral Capsule Doxycycline [place] hydrate 100 MG 05/13/2020 12:00:00 AM EDT 1.0 {capsule} suspend ed Doxycycline Monohydrate 100 MG eCW1 ([facility]) Prednisone 10 MG Oral Tablet PredniSONE 10 MG PredniSONE 10 MG 05/13/2020 12:00:00 AM EDT 3.0 {tablets} suspended PredniSONE 10 MG eCW1 ([facility]) Doxycycline Monohydrate 100 MG Oral Capsule Doxycycline [place] hydrate 100 MG 05/13/2020 12:00:00 AM EDT 1.0 {capsule} suspend ed Doxycycline Monohydrate 100 MG eCW1 ([facility]) Doxycycline Monohydrate 100 MG Oral Capsule Doxycycline [place] hydrate 100 MG 05/13/2020 12:00:00 AM EDT 1.0 {capsule} suspend ed Doxycycline Monohydrate 100 MG eCW1 ([facility]) Prednisone 10 MG Oral Tablet PredniSONE 10 MG PredniSONE 10 MG 05/13/2020 12:00:00 AM EDT 3.0 {tablets} active P redniSONE 10 MG eCW1 ([facility]) Prednisone 10 MG Oral Tablet PredniSONE 10 MG PredniSONE 10 MG 05/13/2020 12:00:00 AM EDT 3.0 {tablets} suspended PredniSONE 10 MG eCW1 ([facility]) Doxycycline Monohydrate 100 MG Oral Capsule Doxycycline [place] hydrate 100 MG 05/13/2020 12:00:00 AM EDT 1.0 {capsule} suspend ed Doxycycline Monohydrate 100 MG eCW1 ([facility]) Prednisone 10 MG Oral Tablet PredniSONE 10 MG PredniSONE 10 MG 05/13/2020 12:00:00 AM EDT 3.0 {tablets} active P redniSONE 10 MG eCW1 ([facility]) Prednisone 10 MG Oral Tablet PredniSONE 10 MG PredniSONE 10 MG 05/13/2020 12:00:00 AM EDT 3.0 {tablets} suspended PredniSONE 10 MG eCW1 ([facility]) Prednisone 10 MG Oral Tablet PredniSONE 10 MG PredniSONE 10 MG 05/13/2020 12:00:00 AM EDT 3.0 {tablets} suspended PredniSONE 10 MG eCW1 ([facility]) Doxycycline Monohydrate 100 MG Oral Capsule Doxycycline [place] hydrate 100 MG 05/13/2020 12:00:00 AM EDT 1.0 {capsule} active Doxycycline Monohydrate 100 MG eCW1 ([facility]) Doxycycline Monohydrate 100 MG Oral Capsule Doxycycline [place] hydrate 100 MG 05/13/2020 12:00:00 AM EDT 1.0 {capsule} active Doxycycline Monohydrate 100 MG eCW1 ([facility]) Doxycycline Monohydrate 100 MG Oral Capsule Doxycycline [place] hydrate 100 MG 05/13/2020 12:00:00 AM EDT 1.0 {capsule} suspend ed Doxycycline Monohydrate 100 MG eCW1 ([facility]) Doxycycline Monohydrate 100 MG Oral Capsule Doxycycline [place] hydrate 100 MG 05/13/2020 12:00:00 AM EDT 1.0 {capsule} suspend ed Doxycycline Monohydrate 100 MG eCW1 ([facility]) Prednisone 10 MG Oral Tablet PredniSONE 10 MG PredniSONE 10 MG 05/13/2020 12:00:00 AM EDT 3.0 {tablets} suspended PredniSONE 10 MG eCW1 ([facility]) Prednisone 10 MG Oral Tablet PredniSONE 10 MG PredniSONE 10 MG 05/13/2020 12:00:00 AM EDT 3.0 {tablets} suspended PredniSONE 10 MG eCW1 ([facility]) Doxycycline Monohydrate 100 MG Oral Capsule Doxycycline [place] hydrate 100 MG 05/13/2020 12:00:00 AM EDT 1.0 {capsule} active Doxycycline Monohydrate 100 MG eCW1 ([facility]) Prednisone 10 MG Oral Tablet PredniSONE 10 MG PredniSONE 10 MG 05/13/2020 12:00:00 AM EDT 3.0 {tablets} active P redniSONE 10 MG eCW1 ([facility]) Doxycycline Monohydrate 100 MG Oral Capsule Doxycycline [place] hydrate 100 MG 05/13/2020 12:00:00 AM EDT 1.0 {capsule} active Doxycycline Monohydrate 100 MG eCW1 ([facility]) Prednisone 10 MG Oral Tablet PredniSONE 10 MG PredniSONE 10 MG 05/13/2020 12:00:00 AM EDT 3.0 {tablets} active P redniSONE 10 MG eCW1 ([facility]) Doxycycline Monohydrate 100 MG Oral Capsule Doxycycline [place] hydrate 100 MG 05/13/2020 12:00:00 AM EDT 1.0 {capsule} suspend ed Doxycycline Monohydrate 100 MG eCW1 ([facility]) Prednisone 10 MG Oral Tablet PredniSONE 10 MG PredniSONE 10 MG 05/13/2020 12:00:00 AM EDT 3.0 {tablets} suspended PredniSONE 10 MG eCW1 ([facility]) Prednisone 10 MG Oral Tablet PredniSONE 10 MG PredniSONE 10 MG 05/13/2020 12:00:00 AM EDT 3.0 {tablets} active P redniSONE 10 MG eCW1 ([facility]) Doxycycline Monohydrate 100 MG Oral Capsule Doxycycline [place] hydrate 100 MG 05/13/2020 12:00:00 AM EDT 1.0 {capsule} suspend ed Doxycycline Monohydrate 100 MG eCW1 ([facility]) Doxycycline Monohydrate 100 MG Oral Capsule Doxycycline [place] hydrate 100 MG 05/13/2020 12:00:00 AM EDT 1.0 {capsule} active Doxycycline Monohydrate 100 MG eCW1 ([facility]) Prednisone 10 MG Oral Tablet PredniSONE 10 MG PredniSONE 10 MG 05/13/2020 12:00:00 AM EDT 3.0 {tablets} active P redniSONE 10 MG eCW1 ([facility]) Doxycycline Monohydrate 100 MG Oral Capsule Doxycycline [place] hydrate 100 MG 05/13/2020 12:00:00 AM EDT 1.0 {capsule} suspend ed Doxycycline Monohydrate 100 MG eCW1 ([facility]) Prednisone 10 MG Oral Tablet PredniSONE 10 MG PredniSONE 10 MG 05/13/2020 12:00:00 AM EDT 3.0 {tablets} active P redniSONE 10 MG eCW1 ([facility]) Prednisone 10 MG Oral Tablet PredniSONE 10 MG PredniSONE 10 MG 05/13/2020 12:00:00 AM EDT 3.0 {tablets} active P redniSONE 10 MG eCW1 ([facility]) Doxycycline Monohydrate 100 MG Oral Capsule Doxycycline [place] hydrate 100 MG 05/13/2020 12:00:00 AM EDT 1.0 {capsule} active Doxycycline Monohydrate 100 MG eCW1 ([facility]) Doxycycline Monohydrate 100 MG Oral Capsule Doxycycline [place] hydrate 100 MG 05/13/2020 12:00:00 AM EDT 1.0 {capsule} active Doxycycline Monohydrate 100 MG eCW1 ([facility]) Doxycycline Monohydrate 100 MG Oral Capsule Doxycycline [place] hydrate 100 MG 05/13/2020 12:00:00 AM EDT 1.0 {capsule} suspend ed Doxycycline Monohydrate 100 MG eCW1 ([facility]) Amoxicillin 875 MG / Clavulanate 125 MG Oral Tablet Amoxicillin-Pot Clavulanate 875-125 MG Amoxicillin-Pot Clavulanate 875-125 MG 04/10/2020 12:00:00 AM ED T 1.0 {tablet} active Amoxicillin-Pot Cla vulanate 875-125 MG eCW1 ([facility]) Diazepam 5 MG Oral Tablet [Valium] Valium 02/09/2020 12:00:00 AM EDT active MEDENT ([facility]) 120 ACTUAT Fluticasone propionate 0.23 M G/ACTUAT / salmeterol 0.021 MG/ACTUAT Metered Dose Inhaler [Advair] Advair HFA 230-21 MCG/ACT Advair HFA 230-21 MCG/ACT 01/12/2020 12:00:00 AM EST active 2 puffs eCW1 ([facility]) 120 ACTUAT Fluticasone propionate 0.23 M G/ACTUAT / salmeterol 0.021 MG/ACTUAT Metered Dose Inhaler [Advair] Advair HFA 230-21 MCG/ACT Advair HFA 230-21 MCG/ACT 01/12/2020 12:00:00 AM EST 2.0 {puffs} activ e Advair HFA 230-21 MCG/ACT eCW1 ([facility]) 120 ACTUAT Fluticasone propionate 0.23 M G/ACTUAT / salmeterol 0.021 MG/ACTUAT Metered Dose Inhaler [Advair] Advair HFA 230-21 MCG/ACT Advair HFA 230-21 MCG/ACT 01/12/2020 12:00:00 AM EST 2.0 {puffs} activ e Advair HFA 230-21 MCG/ACT eCW1 ([facility]) 120 ACTUAT Fluticasone propionate 0.23 M G/ACTUAT / salmeterol 0.021 MG/ACTUAT Metered Dose Inhaler [Advair] Advair HFA 230-21 MCG/ACT Advair HFA 230-21 MCG/ACT 01/12/2020 12:00:00 AM EST 2.0 {puffs} activ e Advair HFA 230-21 MCG/ACT eCW1 ([facility]) 120 ACTUAT Fluticasone propionate 0.23 M G/ACTUAT / salmeterol 0.021 MG/ACTUAT Metered Dose Inhaler [Advair] Advair HFA 230-21 MCG/ACT Advair HFA 230-21 MCG/ACT 01/12/2020 12:00:00 AM EST 2.0 {puffs} activ e Advair HFA 230-21 MCG/ACT eCW1 ([facility]) 120 ACTUAT Fluticasone propionate 0.23 M G/ACTUAT / salmeterol 0.021 MG/ACTUAT Metered Dose Inhaler [Advair] Advair HFA 230-21 MCG/ACT Advair HFA 230-21 MCG/ACT 01/12/2020 12:00:00 AM EST 2.0 {puffs} activ e Advair HFA 230-21 MCG/ACT eCW1 ([facility]) 120 ACTUAT Fluticasone propionate 0.23 M G/ACTUAT / salmeterol 0.021 MG/ACTUAT Metered Dose Inhaler [Advair] Advair HFA 230-21 MCG/ACT Advair HFA 230-21 MCG/ACT 01/12/2020 12:00:00 AM EST 2.0 {puffs} activ e Advair HFA 230-21 MCG/ACT eCW1 ([facility]) 120 ACTUAT Fluticasone propionate 0.23 M G/ACTUAT / salmeterol 0.021 MG/ACTUAT Metered Dose Inhaler [Advair] Advair HFA 230-21 MCG/ACT Advair HFA 230-21 MCG/ACT 01/12/2020 12:00:00 AM EST 2.0 {puffs} activ e Advair HFA 230-21 MCG/ACT eCW1 ([facility]) 120 ACTUAT Fluticasone propionate 0.23 M G/ACTUAT / salmeterol 0.021 MG/ACTUAT Metered Dose Inhaler [Advair] Advair HFA 230-21 MCG/ACT Advair HFA 230-21 MCG/ACT 01/12/2020 12:00:00 AM EST 2.0 {puffs} activ e Advair HFA 230-21 MCG/ACT eCW1 ([facility]) 120 ACTUAT Fluticasone propionate 0.23 M G/ACTUAT / salmeterol 0.021 MG/ACTUAT Metered Dose Inhaler [Advair] Advair HFA 230-21 MCG/ACT Advair HFA 230-21 MCG/ACT 01/12/2020 12:00:00 AM EST 2.0 {puffs} activ e Advair HFA 230-21 MCG/ACT eCW1 ([facility]) 120 ACTUAT Fluticasone propionate 0.23 M G/ACTUAT / salmeterol 0.021 MG/ACTUAT Metered Dose Inhaler [Advair] Advair HFA 230-21 MCG/ACT Advair HFA 230-21 MCG/ACT 01/12/2020 12:00:00 AM EST 2.0 {puffs} activ e Advair HFA 230-21 MCG/ACT eCW1 ([facility]) 120 ACTUAT Fluticasone propionate 0.23 M G/ACTUAT / salmeterol 0.021 MG/ACTUAT Metered Dose Inhaler [Advair] Advair HFA 230-21 MCG/ACT Advair HFA 230-21 MCG/ACT 01/12/2020 12:00:00 AM EST 2.0 {puffs} activ e Advair HFA 230-21 MCG/ACT eCW1 ([facility]) 120 ACTUAT Fluticasone propionate 0.23 M G/ACTUAT / salmeterol 0.021 MG/ACTUAT Metered Dose Inhaler [Advair] Advair HFA 230-21 MCG/ACT Advair HFA 230-21 MCG/ACT 01/12/2020 12:00:00 AM EST 2.0 {puffs} activ e Advair HFA 230-21 MCG/ACT eCW1 ([facility]) 120 ACTUAT Fluticasone propionate 0.23 M G/ACTUAT / salmeterol 0.021 MG/ACTUAT Metered Dose Inhaler [Advair] Advair HFA 230-21 MCG/ACT Advair HFA 230-21 MCG/ACT 01/12/2020 12:00:00 AM EST 2.0 {puffs} activ e Advair HFA 230-21 MCG/ACT eCW1 ([facility]) 120 ACTUAT Fluticasone propionate 0.23 M G/ACTUAT / salmeterol 0.021 MG/ACTUAT Metered Dose Inhaler [Advair] Advair HFA 230-21 MCG/ACT Advair HFA 230-21 MCG/ACT 01/12/2020 12:00:00 AM EST 2.0 {puffs} activ e Advair HFA 230-21 MCG/ACT eCW1 ([facility]) 120 ACTUAT Fluticasone propionate 0.23 M G/ACTUAT / salmeterol 0.021 MG/ACTUAT Metered Dose Inhaler [Advair] Advair HFA 230-21 MCG/ACT Advair HFA 230-21 MCG/ACT 01/12/2020 12:00:00 AM EST 2.0 {puffs} activ e Advair HFA 230-21 MCG/ACT eCW1 ([facility]) 120 ACTUAT Fluticasone propionate 0.23 M G/ACTUAT / salmeterol 0.021 MG/ACTUAT Metered Dose Inhaler [Advair] Advair HFA 230-21 MCG/ACT Advair HFA 230-21 MCG/ACT 01/12/2020 12:00:00 AM EST 2.0 {puffs} activ e Advair HFA 230-21 MCG/ACT eCW1 ([facility]) 120 ACTUAT Fluticasone propionate 0.23 M G/ACTUAT / salmeterol 0.021 MG/ACTUAT Metered Dose Inhaler [Advair] Advair HFA 230-21 MCG/ACT Advair HFA 230-21 MCG/ACT 01/12/2020 12:00:00 AM EST 2.0 {puffs} activ e Advair HFA 230-21 MCG/ACT eCW1 ([facility]) 120 ACTUAT Fluticasone propionate 0.23 M G/ACTUAT / salmeterol 0.021 MG/ACTUAT Metered Dose Inhaler [Advair] Advair HFA 230-21 MCG/ACT Advair HFA 230-21 MCG/ACT 01/12/2020 12:00:00 AM EST 2.0 {puffs} activ e Advair HFA 230-21 MCG/ACT eCW1 ([facility]) 120 ACTUAT Fluticasone propionate 0.23 M G/ACTUAT / salmeterol 0.021 MG/ACTUAT Metered Dose Inhaler [Advair] Advair HFA 230-21 MCG/ACT Advair HFA 230-21 MCG/ACT 01/12/2020 12:00:00 AM EST 2.0 {puffs} activ e Advair HFA 230-21 MCG/ACT eCW1 ([facility]) 120 ACTUAT Fluticasone propionate 0.23 M G/ACTUAT / salmeterol 0.021 MG/ACTUAT Metered Dose Inhaler [Advair] Advair HFA 230-21 MCG/ACT Advair HFA 230-21 MCG/ACT 01/12/2020 12:00:00 AM EST active 2 puffs eCW1 ([facility]) 120 ACTUAT Fluticasone propionate 0.23 M G/ACTUAT / salmeterol 0.021 MG/ACTUAT Metered Dose Inhaler [Advair] Advair HFA 230-21 MCG/ACT Advair HFA 230-21 MCG/ACT 01/12/2020 12:00:00 AM EST active 2 puffs eCW1 ([facility]) 120 ACTUAT Fluticasone propionate 0.23 M G/ACTUAT / salmeterol 0.021 MG/ACTUAT Metered Dose Inhaler [Advair] Advair HFA 230-21 MCG/ACT Advair HFA 230-21 MCG/ACT 01/12/2020 12:00:00 AM EST 2.0 {puffs} activ e Advair HFA 230-21 MCG/ACT eCW1 ([facility]) Doxycycline Monohydrate 100 MG Oral Capsule Doxycycline [place] hydrate 100 MG 01/03/2020 12:00:00 AM EST active 1 capsule eCW1 ([facility]) Doxycycline Monohydrate 100 MG Oral Capsule Doxycycline [place] hydrate 100 MG 01/03/2020 12:00:00 AM EST 1.0 {capsule} suspend ed Doxycycline Monohydrate 100 MG eCW1 ([facility]) Doxycycline Monohydrate 100 MG Oral Capsule Doxycycline [place] hydrate 100 MG 01/03/2020 12:00:00 AM EST suspended 1 capsule eCW1 ([facility]) Insurance Providers Payer name Policy type / Coverage type Policy ID Covered republican ID Covered republican's relationship to rodriguez Policy Rodriguez Plan Information [employer] G[employer] [id number] SP [id number] [employer] GOLD [id number] SP [id number] MEDICARE [id number] SP [id number] MEDICAID [id number] MEDICARE C [id number] S [id number] MEDICAID [id number] SP [id number] MEDICAID [id number] Audrey [id number] MEDICARE [id number] Audrey [id number] D24 Problems, Conditions, and Diagnoses Code Display Name Description Problem Type Effective Dates Data Source(s) 55968389 Allergic asthma without status asthmatic us Allergic asthma without status asthmaticus Problem 12/18/2020 12:00:00 AM EST MEDENT ([facility], ) J45.30 [id number] Mild persistent asthma, uncomplicated Pro blem 05/22/2020 12:00:00 AM EDT eCW1 ([facility]) J32.9 92015405 Sinusitis, unspecified chronicity, unspec ified location Problem 04/10/2020 12:00:00 AM EDT eCW1 ([facility]) J32.9 [id number] Sinusitis, unspecified chronicity, unspec ified location Problem 04/10/2020 12:00:00 AM EDT eCW1 ([facility]) I35.0 53268291 Aortic valve stenosis, mild Problem 01/10/20 12:00:00 AM EST eCW1 ([facility]) I35.0 [id number] Aortic valve stenosis, mild Problem 01/10/20 12:00:00 AM EST eCW1 ([facility]) G89.21 313738841 Chronic pain due to trauma Problem 0 12:00:00 AM EST eCW1 ([facility]) Z86.39 [id number] History of vitamin D deficiency Problem 01/03/2020 12:00:00 AM EST eCW1 ([facility]) K21.9 Gastroesophageal reflux disease without esophagitis Gastroesophageal reflux disease without esophagitis Problem 01/03/2020 12:00:00 AM ES T eCW1 ([facility]) Z86.2 [id number] History of anemia Problem 01/03/2020 12:00:0 0 AM EST eCW1 ([facility]) J45.30 [id number] Mild persistent asthma without complicati on Problem 01/03/2020 12:00:00 AM EST eCW1 ([facility]) G89.21 260625235 Chronic pain due to trauma Problem 0 12:00:00 AM EST eCW1 ([facility]) Z86.39 [id number] History of vitamin D deficiency Problem 01/03/2020 12:00:00 AM EST eCW1 ([facility]) K21.9 Gastroesophageal reflux disease without esophagitis Gastroesophageal reflux disease without esophagitis Problem 01/03/2020 12:00:00 AM ES T eCW1 ([facility]) Z86.2 [id number] History of anemia Problem 01/03/2020 12:00:0 0 AM EST eCW1 ([facility]) J45.30 [id number] Mild persistent asthma without complicati on Problem 01/03/2020 12:00:00 AM EST eCW1 ([facility]) I35.0 Nonrheumatic aortic (valve) stenosis Nonrheumati c aortic (valve) stenosis Diagnosis 02/14/2020 10:38:17 AM EDT [facility] Surgeries/Procedures Procedure Description Date Indications Data Source(s) THERAPEUTIC PX 1/> AREAS EACH 15 MIN EXERCISES 021 12:00:00 AM EST MEDENT ([facility]) THERAPEUTIC PX 1/> AREAS EACH 15 MIN EXERCISES 12:00:00 AM EST MEDENT ([facility]) X-Ray Hip Unilateral With Pelvis 2-3 Views 12/24/2020 12:00:00 AM EST MEDENT ([facility]) THERAPEUTIC PX 1/> AREAS EACH 15 MIN EXERCISES 12:00:00 AM EST MEDENT ([facility]) Endoscopy Nasal Diagnostic 12/19/2020 12:00:00 AM EST MEDENT ([facility]) THERAPEUTIC PX 1/> AREAS EACH 15 MIN EXERCISES 12:00:00 AM EST MEDENT ([facility] ) THERAPEUTIC PX 1/> AREAS EACH 15 MIN EXERCISES 12:00:00 AM EST MEDENT ([facility] ) APPLICATION MODALITY 1/> AREAS HOT/COLD PACKS 12/14/19 12:00:00 AM EST MEDENT ([facility]) THERAPEUTIC PX 1/> AREAS EACH 15 MIN EXERCISES 12:00:00 AM EST MEDENT ([facility] ) THERAPEUTIC PX 1/> AREAS EACH 15 MIN EXERCISES 12:00:00 AM EST MEDENT ([facility]) THERAPEUTIC PX 1/> AREAS EACH 15 MIN EXERCISES 021 12:00:00 AM EST MEDENT ([facility]) THERAPEUTIC PX 1/> AREAS EACH 15 MIN EXERCISES 12:00:00 AM EST MEDENT ([facility]) APPLICATION MODALITY 1/> AREAS HOT/COLD PACKS 11/28/19 12:00:00 AM EST MEDENT ([facility] ) THERAPEUTIC PX 1/> AREAS EACH 15 MIN EXERCISES 020 12:00:00 AM EST MEDENT ([facility] ) THERAPEUTIC PX 1/> AREAS EACH 15 MIN EXERCISES 12:00:00 AM EST MEDENT ([facility]) THERAPEUTIC PX 1/> AREAS EACH 15 MIN EXERCISES 12:00:00 AM EST MEDENT ([facility]) Immunization: Flublok Quadrivalent (18 years & older) 0.5mL IM (Influenza) 11/08/2020 12:00:00 AM EST eCW1 ([facility]) THERAPEUTIC PX 1/> AREAS EACH 15 MIN EXERCISES 12:00:00 AM EST MEDENT ([facility]) THERAPEUTIC PX 1/> AREAS EACH 15 MIN EXERCISES 12:00:00 AM EST MEDENT ([facility]) THERAPEUTIC PX 1/> AREAS EACH 15 MIN EXERCISES 12:00:00 AM EST MEDENT ([facility]) THERAPEUTIC PX 1/> AREAS EACH 15 MIN EXERCISES 12:00:00 AM EST MEDENT ([facility]) THERAPEUTIC PX 1/> AREAS EACH 15 MIN EXERCISES 12:00:00 AM EST MEDENT ([facility]) THERAPEUTIC PX 1/> AREAS EACH 15 MIN EXERCISES 12:00:00 AM EST MEDENT ([facility]) Physical Therapy Eval - Low Complexity 09/19/2020 12:0 0:00 AM EDT MEDENT ([facility]) ARTHROCENTESIS ASPIR&/INJECTION MAJOR JT/BURSA 12:00:00 AM EDT MEDENT ([facility]) MRI Lower Extremity Any Joint 08/20/2020 12:00:00 AM E DT MEDENT ([facility]) MRI Lower Extremity Any Joint 08/20/2020 12:00:00 AM E DT MEDENT ([facility]) Spirometry 07/19/2020 12:00:00 AM EDT Leny SONG ([facility], ) PNEUMOCOCCAL POLYSAC VACCINE 23-V 2 />YR SUBQ/IM 06/04 12:00:00 AM EDT eCW1 ([facility]) Bronchospasm Evaluation 03/08/2020 12:00:00 AM EDT MEDENT ([facility], ) Maximum Breathing Capacity, Maximal Voluntary Ventilation 03/08/2020 12:00:00 AM EDT MEDENT ([facility], ) Plethysmography Determination Lung Volumes & Per Airway Resi st 03/08/2020 12:00:00 AM EDT MEDENT [facility] DIFFUSING CAPACITY 03/08/2020 12:00:00 AM EDT MEDENT ([facility], ) Spirometry 02/16/2020 12:00:00 AM EDT M EDENT ([facility], ) RADEX ANKLE COMPLETE MINIMUM 3 VIEWS 02/09/2020 12:00: 00 AM EDT MEDENT ([facility] ) RADEX FOOT COMPLETE MINIMUM 3 VIEWS 02/09/2020 12:00:0 0 AM EDT MEDENT ([facility] ) ESTABILISHED PATIENT [facility] FACILITY CHARGE 020 12:00:00 AM EDT eCW1 ([facility]) Influenza immunization administered or previously received 01/03/2020 12:00:00 AM EST eCW1 ([facility]) Results ID Date Data Source [id number] 01/06/2021 09:30:00 AM EST [facility] Name Value Range Interpretation Code Description Data Maggie rce(s) Supporting Document(s) SARS coronavirus 2 RNA Not Detected [facility] This lab was ordered by [facility] and reported by [facility]. ID Date Data Source [id number] 12/28/2020 09:05:00 AM EST MEDENT ([facility], ) Name Value Range Interpretation Code Description Data Maggie rce(s) Supporting Document(s) PDFReport Laboratory test result MEDENT ([facility], ) FVC-Pre 2.11 L MEDENT ([facility], ) FVC-Pred 3.53 L MEDENT ([facility]) FVC-%Pred-Pre 59 L MEDENT ([facility], ) FVC-LLN 2.86 L MEDENT ([facility], ) Fev1-Pred 2.89 L MEDENT ([facility], ) Fev1-LLN 2.34 L MEDENT ([facility] ) Fev1-Pre 1.63 L MEDENT ([facility], ) Fev1-%Pred-Pre 56 L MEDENT ([facility], ) Fev6-%Pred-Pre 60 L MEDENT ([facility], ) Fev6-Pred 3.47 L MEDENT ([facility], ) Fev6-Pre 2.11 L MEDENT ([facility], ) Atd0zmt-Jpx 77 % MEDENT ([facility]) Fev6-LLN 2.82 L MEDENT ([facility]) Qmc3gzu-Umjk 83 % MEDENT ([facility]) Skn8min-WAY 73 % MEDENT ([facility]) Jww6lht-%Pred-Pre 93 % MEDENT ([facility]) Nmd7ndf-Xghw 98 % MEDENT ([facility], ) FEFMax-Pred 6.75 L/E/sec MEDENT ([facility], ) Zmp1lhe-Cse 100 % MED[facility] ([facility]) Ugn2loo-%Pred-Pre 101 % MED[facility] ([facility]) FEFMax-Pre 5.14 L/E/sec MEDENT ([facility]) FEFMax-LLN 5.12 L/E/sec MEDENT ([facility]) Xry6209-Itlk 3.08 L/E/sec MEDENT ([facility]) FEFMax-%Pred-Pre 76 L/E/sec MEDENT ([facility]) Hru5985-%Pred-Pre 43 L/E/sec MEDENT ([facility]) Ryl7054-IYK 1.90 L/E/sec MEDENT ([facility]) Dnm6212-Hio 1.33 L/E/sec MEDENT ([facility], ) Bkg0mit3-Dyge 84 % MEDENT ([facility], ) Dgl0pgc9-Amr 77 % MEDENT ([facility]) ExpTime-Pre 6.36 sec [facility] Sdg8cly3-%Pred-Pre 92 % [facility] Jrl8dlk8-MFT 75 % [facility] ([facility]) ID Date Data Source [id number] 12/21/2020 01:25:00 PM EST [facility] ([facility]) Name Value Range Interpretation Code Description Data Maggie rce(s) Supporting Document(s) Clostridium Difficile PCR Laboratory test result Normal (applies to non- numeric results) [facility] ([facility]) Clostridium difficile testing will only be performed on unformed diarrhea [...] Please contact Infectious Disease Specialist with questions. Nap1 [id number] For Cdiff PCR Laboratory test result No rmal (applies to non-numeric results) [facility] ([facility]) ID Date Data Source [id number] 12/21/2020 01:25:00 PM EST [facility] ([facility]) Name Value Range Interpretation Code Description Data Maggie rce(s) Supporting Document(s) Calprotectin [Mass/mass] in Stool Laboratory test result [facility] ([facility]) Lactoferrin [Presence] in Stool by Immunoassay Laboratory test r esult Normal (applies to non-numeric results) [facility] Fat Fecal Qualitative Laboratory test result [facility] ([facility]) Elastase.pancreatic [Mass/mass] in Stool Laboratory test result [facility] ([facility]) ID Date Data Source [id number] 12/18/2020 04:05:00 PM EST [facility] ([facility]) Name Value Range Interpretation Code Description Data Maggie rce(s) Supporting Document(s) Cobalamin (Vitamin B12) [Mass/volume] in Serum or Plasma 481 pg/ mL 247-911 Normal (applies to non-numeric results) [facility] ([facility]) VITAMIN B12 NORMAL RANGE NORMAL 247 - 911 PG/ML INDETERMINATE 211 - 246 PG/ML DEFICIENT LESS THAN 211 PG/ML ID Date Data Source [id number] 12/18/2020 04:05:00 PM EST [facility] ([facility]) Name Value Range Interpretation Code Description Data Maggie rce(s) Supporting Document(s) Creatinine For GFR 0.91 mg/dL 0.55-1.30 Normal (applies to non -numeric results) [facility] ([facility]) Glomerular Filtration Rate Laboratory test result Normal (applies to non- numeric results) [facility]) <content>Units are mL/min/1.73 m2</content>
<content></content>
<content>Chronic Kidney Disease Staging per NKF:</content>
<content></content>
<content>Stage I & II GFR >=60 Normal to Mildly Decreased</content>
<content>Stage III GFR 30- 59 Moderately Decreased</content>
<content>Stage IV GFR 15-29 Severely Decreased</content>
<content>Stage V GFR <15 Very Little GFR Left</content>
<content>ESRD GFR <15 on DOCUMENTATION BILLING CLERK</content>
<content></content> ID Date Data Source [id number] 12/18/2020 04:05:00 PM EST [facility] ([facility]) Name Value Range Interpretation Code Description Data Mgagie rce(s) Supporting Document(s) Urea nitrogen [Mass/volume] in Serum or Plasma 13 mg/dL 7 -18 Normal (applies to non-numeric results) [facility]) ID Date Data Source [id number] 12/18/2020 04:05:00 PM EST [facility]) Name Value Range Interpretation Code Description Data Maggie rce(s) Supporting Document(s) Total Iron Binding Capacity 359 ug/dL 250-450 Norm al (applies to non-numeric results) [facility] ([facility]) Iron (Fe) 58 ug/dL 50-170 Normal (applies to non-numeric resul ts) [facility]) Percent Saturation 16.2 % 13.2-45.0 Normal (applies to non-numer ic results) [facility]) ID Date Data Source [id number] 12/18/2020 04:05:00 PM EST [facility] ([facility]) Name Value Range Interpretation Code Description Data Maggie rce(s) Supporting Document(s) White Blood Count 8.6 10 4.0-10.0 Normal (applies to non-numeri c results) [facility] ([facility]) Hemoglobin 15.3 g/dL 12.0-15.5 Normal (applies to non-numeric resul ts) [facility]) Red Blood Count 4.76 10 4.00-5.40 Normal (applies to non-numeric results) [facility]) Mean Corpuscular Volume 97.1 fl 80.0-96.0 Above high normal [facility] ([facility]) Hematocrit 46.2 % 36.0-47.0 Normal (applies to non-numeric resul ts) [facility]) Mean Corpuscular HGB Conc 33.1 g/dL 32.0-36.5 Normal (applies to non-numeric results) [facility]) Red Cell Distribution Width 13.2 % 11.5-14.5 Norm al (applies to non-numeric results) [facility]) Mean Corpuscular Hemoglobin 32.1 pg 27.0-33.0 Norm al (applies to non-numeric results) [facility]) Lymph % 26.5 % 24.0-44.0 Normal (applies to non-numeric resul ts) [facility]) Platelet Count, Automated 351 10 150-450 Normal (applies to non-numeric results) [facility]) Neutrophils % 63.1 % 36.0-66.0 Normal (applies to non-numeric re sults) [facility]) [place] % 8.3 % 0.0-5.0 Above high normal MEDENT ([facility]) Eos % 1.4 % 0.0-3.0 Normal (applies to non-numeric resul ts) [facility] ([facility]) Baso % 0.5 % 0.0-1.0 Normal (applies to non-numeric resul ts) [facility] ([facility]) Neutrophils # 5.4 10 1.5-8.5 Normal (applies to non-numeric re sults) [facility] ([facility]) Immature Granulocyte % 0.2 % 0-3.0 Normal (applies to non-n umeric results) [facility] ([facility]) Nucleated Red Blood Cell % 0.0 % 0-0 Normal (applies to n on-numeric results) [facility] ([facility]) Eos # 0.1 10 0.0-0.5 Normal (applies to non-numeric resul ts) [facility] ([facility]) [place] # 0.7 10 0.0-0.8 Normal (applies to non-numeric resul ts) [facility] ([facility]) Lymph # 2.3 10 1.5-5.0 Normal (applies to non-numeric resul ts) [facility] ([facility]) Baso # 0.0 10 0.0-0.2 Normal (applies to non-numeric resul ts) [facility] ([facility]) ID Date Data Source [id number] 12/18/2020 04:05:00 PM EST MEDENT ([facility]) Name Value Range Interpretation Code Description Data Maggie rce(s) Supporting Document(s) Ast/Sgot 13 U/L 7-37 Normal (applies to non-numeric resul ts) [facility] ([facility]) Alkaline Phosphatase 74 U/L 45-117 Normal (applies to non-num ankur results) [facility] ([facility]) Alt/SGPT 19 U/L 12-78 Normal (applies to non-numeric resul ts) [facility] ([facility]) Bilirubin,Direct 0.2 mg/dL 0.0-0.2 Normal (applies to non-numeric results) [facility] ([facility]) Total Protein 7.7 GM/DL 6.4-8.2 Normal (applies to non-numeric re sults) [facility]) Bilirubin,Total 0.6 mg/dL 0.2-1.0 Normal (applies to non-numeric results) [facility] ([facility]) Albumin/Globulin Ratio 1.1 1.2-2.2 Below low normal [facility] ([facility]) Albumin 4.0 GM/DL 3.2-5.2 Normal (applies to non-numeric resul ts) [facility]) ID Date Data Source [id number] 12/18/2020 04:05:00 PM EST [facility]) Name Value Range Interpretation Code Description Data Maggie rce(s) Supporting Document(s) Igasub3 23.0 mg/dL 13.4-97.9 Normal (applies to non-numeric resul ts) [facility]) IgA Serum (part of Subclasses) 166 mg/dL 87-352 N ormal (applies to non-numeric results) [facility]) Igasub2 121.3 mg/dL 73.2-301.2 Normal (applies to non-numeric resu lts) [facility]) ID Date Data Source [id number] 12/18/2020 04:05:00 PM EST [facility] ([facility]) Name Value Range Interpretation Code Description Data Maggie rce(s) Supporting Document(s) Tissue transglutaminase IgA Ab [Units/volume] in Serum Labor atory test result 0-3 Normal (applies to non-numeric results) [facility]) Negative 0 - 3 Weak Positive 4 - 10 Positive >10 . Tissue Transglutaminase (tTG) has been identified as the endomysial antigen. Studies have demonstr- ated that endomysial IgA antibodies have over 99% specificity for gluten sensitive enteropathy. Performed at: RN - [facility] [address] [id number] Dairy Management Specialist: Meghana Patricio MD, Phone: [phone] Performed at: - [facility] [id number] Dairy Management Specialist: Kayode Soto MD, Phone: [phone] ID Date Data Source [id number] 04/09/2020 02:10:00 PM EDT [facility] Name Value Range Interpretation Code Description Data Maggie rce(s) Supporting Document(s) SARS CORONAVIRUS 2 RNA [facility] This lab was ordered by [facility] and reported by [facility]. ID Date Data Source [id number] 03/08/2020 02:18:00 PM EDT MEDENT ([facility], ) Name Value Range Interpretation Code Description Data Maggie rce(s) Supporting Document(s) FVC <pending> MEDENT ([facility], ) Fev1/FVC% <pending> [facility] ([facility], ) Fev1 <pending> MEDENT ([facility], ) Hemoglobin [Mass/volume] in Blood <pending> MEDENT ([facility], ) ID Date Data Source [id number] 03/07/2020 12:00:00 AM EDT [facility] Roseanne Sequeira MD Patient Name: HOWARD FOWLER [facility] Date of : 1980[place] [address] Date of Exam: 03/07/2020#: Fax: [phone] EXAM: US GUIDANCE FOR NEEDLE PLACEMENT S&ICLINICAL INFORMATION: Peroneal tendinitis left leg.ULTRASOUND GUIDED LEFT PERONEAL TENDON INJECTION:The procedure was performed by Alberto Rodriguez [facility], under the generalsupervision of Dr. Ortega.The risks and benefits of the procedure were explained to the patient andinformed consent was obtained.The left peroneal tendon sheath was localized using ultrasound guidance.The skin was prepped and draped in a sterile fashion. 1% Lidocaine wasused as a local anesthetic. Using ultrasound guidance, a 25-gauge needlewas inserted then advanced into the tendon sheath. 3 cc of a solutioncontaining 2 cc of 1% Lidocaine and 1 cc of Kenalog 40 mg was injected.The needle was then removed.The patient tolerated the procedure well and there were no immediatecomplications.HILARIO Hastings/Rosalinda you for referring JOSE FOWLER to our office. Electronically Signed - OPAL ORTEGA MD 03/09/20 16:56 Name Value Range Interpretation Code Description Data Maggie rce(s) Supporting Document(s) ID Date Data Source [id number] 02/18/2020 12:00:00 AM EDT [facility] Imaging Roseanne Sequeira MD Patient Name: JOSE [id number] [facility] Date of : 1980[place] [address] Date of Exam: 02/18/2020PH#: Fax: [phone] EXAM: MRI ANKLE LEFT WITHOUT CONTRASTCLINICAL INFORMATION: Chronic pain.3T multiplanar MRI imaging of the left ankle was obtained using varioussequences.There are no prior left ankle MRI's for comparison.The tendons of the tibialis anterior, extensor hallucis, and extensordigitorum muscles are intact and of normal appearing low signal throughout. The tendons of the tibialis posterior, flexor digitorum, and flexorhallucis muscles are intact and of normal appearing low signal throughout.There is some mild splaying of the posterior tibial tendon just to thefibular tip but this is without abnormal peritendinous signal. TheAchilles tendon is intact and of normal appearing low signal throughout.The peroneal tendons are intact and of normal appearing low signalthroughout. The anterior and posterior/inferior tibiofibular ligaments a reintact. The anterior and posterior talofibular ligaments are intact. Thecalcaneofibular ligament is intact. The ligaments within the sinus tarsiare normal and the sinus tarsi fat signal is preserved. The subtalarjoints are within normal limits.In the anterior medial talar dome there is a subchondral T2 hypersignalfocus which measures 4 mm. There is no joint effusion.IMPRESSION:1. Likely chronic change or developmental change involving the posteriortibial tendon as described above. There is no evidence of acute internalderangement.2. 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 This shouldbe correlated clinically.Accredited by the [employer] in MR.ELIEZER Mixon/Rosalinda you for referring JOSE FOWLER to our office. Electronically Signed - JUAN A KAUR DO 02/20/20 14:11 Name Value Range Interpretation Code Description Data Maggie rce(s) Supporting Document(s) ID Date Data Source VITAMIN [id number] 01/03/2020 12:00:00 AM EST eCW1 ([facility]) Name Value Range Interpretation Code Description Data Maggie rce(s) Supporting Document(s) 33.2 30.0-100.0 TOTAL 25(OH) VITAMIN D eC W1 ([facility]) ID Date Data Source CBC with Differential 01/03/2020 12:00:00 AM EST eCW1 ([facility]) Name Value Range Interpretation Code Description Data Maggie rce(s) Supporting Document(s) 7.4 4.0-10.0 WHITE BLOOD COUNT eCW1 ([facility]) 47.7 36.0-47.0 HEMATOCRIT eCW1 ([facility]) 4.84 4.00-5.40 RED BLOOD COUNT eCW1 ([facility]) 15.1 12.0-15.5 HEMOGLOBIN eCW1 ([facility]) 31.2 27.0-33.0 MEAN CORPUSCULAR HEMOGLOB IN eCW1 ([facility]) 31.7 32.0-36.5 MEAN CORPUSCULAR HGB CONC eCW1 ([facility]) 13.0 11.5-14.5 RED CELL DISTRIBUTION WID TH eCW1 ([facility]) 98.6 80.0-96.0 MEAN CORPUSCULAR VOLUME e CW1 ([facility]) 345 150-450 PLATELET COUNT, AUTOMATED eCW1 ([facility]) 28.5 24.0-44.0 LYMPH % eCW1 ([facility]) 8.5 0.0-5.0 MONO % eCW1 ([facility]) 61.8 36.0-66.0 NEUTROPHILS % eCW1 ([facility]) 4.6 1.5-8.5 NEUTROPHILS # eCW1 ([facility]) 0.4 0.0-1.0 BASO % eCW1 ([facility]) 2.1 1.5-5.0 LYMPH # eCW1 ([facility]) 0.5 0.0-3.0 EOS % eCW1 ([facility]) 0.6 0.0-0.8 MONO # eCW1 ([facility]) 0.0 0.0-0.5 EOS # eCW1 ([facility]) 0.0 0.0-0.2 BASO # eCW1 ([facility]) Procedure Social History Code Duration Value Status Description Data Source(s ) Smoking 12/28/2020 12:00:00 AM EST Patient has never smoked co mpleted Patient has never smoked MEDENT ([facility], ) Smoking 12/07/2020 12:00:00 AM EST Never Smoker completed Never S moker eCW1 ([facility]) Smoking 12/07/2020 12:00:00 AM EST Never Smoker completed Never S moker eCW1 ([facility]) Smoking 12/07/2020 12:00:00 AM EST Never Smoker completed Never S moker eCW1 ([facility]) Smoking 12/07/2020 12:00:00 AM EST Never Smoker completed Never S moker eCW1 ([facility]) Smoking 10/04/2020 12:00:00 AM EST Never Smoker completed Never S moker eCW1 ([facility]) Smoking 10/04/2020 12:00:00 AM EST Never Smoker completed Never S moker eCW1 ([facility]) Smoking 10/04/2020 12:00:00 AM EST Never Smoker completed Never S moker eCW1 ([facility]) Smoking 10/04/2020 12:00:00 AM EST Never Smoker completed Never S moker eCW1 ([facility]) Smoking 10/04/2020 12:00:00 AM EST Never Smoker completed Never S moker eCW1 ([facility]) Smoking 10/04/2020 12:00:00 AM EST Never Smoker completed Never S moker eCW1 ([facility]) Smoking 05/13/2020 12:00:00 AM EDT Never Smoker completed Never S moker eCW1 ([facility]) Smoking 05/13/2020 12:00:00 AM EDT Never Smoker completed Never S moker eCW1 ([facility]) Smoking 05/13/2020 12:00:00 AM EDT Never Smoker completed Never S moker eCW1 ([facility]) Smoking 05/13/2020 12:00:00 AM EDT Never Smoker completed Never S moker eCW1 ([facility]) Smoking 05/13/2020 12:00:00 AM EDT Never Smoker completed Never S moker eCW1 ([facility]) Smoking 05/13/2020 12:00:00 AM EDT Never Smoker completed Never S moker eCW1 ([facility]) Smoking 05/13/2020 12:00:00 AM EDT Never Smoker completed Never S moker eCW1 ([facility]) Smoking 05/13/2020 12:00:00 AM EDT Never Smoker completed Never S moker eCW1 ([facility]) Smoking 05/13/2020 12:00:00 AM EDT Never Smoker completed Never S moker eCW1 ([facility]) Smoking 04/14/2020 12:00:00 AM EDT Never Smoker completed Never S moker eCW1 ([facility]) Vital Signs ID Date Data Source UNK Name Value Range Interpretation Code Description Data Source(s) Body surface area Derived from formula 1.77 m2 1.77 m2 [facility] ([facility]) Body weight 77.566 kg 77.566 kg [facility] ([facility]) [place] body weight 105 [lb_av] 105 [lb_av] [facility] ([facility]) Body mass index (BMI) [Ratio] 32.3 kg/m2 32.3 k g/m2 [facility] ([facility]) Body weight 171.00 [lb_av] 171.00 [lb_av] [facility] Body height 61 [in_i] 61 [in_i] [facility] ([facility]) 5'1" Oxygen saturation in Arterial blood by Pulse oximetry 98 % 98 % [facility] ([facility]) Room Air Heart rate 113 /min 113 /min [facility] ([facility]) Diastolic blood pressure 84 mm[Hg] 84 mm[Hg] [facility] ([facility]) Systolic blood pressure 120 mm[Hg] 120 mm[Hg] [facility] Body mass index (BMI) [Ratio] 31.8 kg/m2 31.8 k g/m2 [facility] ([facility]) Body weight 174.00 [lb_av] 174.00 [lb_av] [facility] ([facility]) Body height 62 [in_i] 62 [in_i] [facility] ([facility]) 5'2" Body temperature 97.1 [degF] 97.1 [degF] [facility] ([facility]) Body temperature 97.3 [degF] 97.3 [degF] [facility] ([facility]) Body surface area Derived from formula 1.75 m2 1.75 m2 [facility] ([facility]) Body weight 76.205 kg 76.205 kg [facility] ([facility]) [place] body weight 105 [lb_av] 105 [lb_av] [facility] T ([facility]) Body mass index (BMI) [Ratio] 31.7 kg/m2 31.7 k g/m2 [facility] ([facility]) Body weight 168.00 [lb_av] 168.00 [lb_av] [facility] ([facility]) Body height 61 [in_i] 61 [in_i] [facility] ([facility]) 5'1" Body surface area Derived from formula 1.76 m2 1.76 m2 [facility] ([facility]) Body weight 77.112 kg 77.112 kg [facility] ([facility]) [place] body weight 105 [lb_av] 105 [lb_av] [facility] ([facility]) Body mass index (BMI) [Ratio] 32.1 kg/m2 32.1 k g/m2 [facility] ([facility]) Body weight 170.00 [lb_av] 170.00 [lb_av] [facility] ([facility]) Body height 61 [in_i] 61 [in_i] [facility] ([facility]) 5'1" Diastolic blood pressure 80 mm[Hg] 80 mm[Hg] [facility] ([facility]) Systolic blood pressure 126 mm[Hg] 126 mm[Hg] M EDENT ([facility]) Diastolic blood pressure 83 mm[Hg] 83 mm[Hg] eCW1 ([facility]) Systolic blood pressure 134 mm[Hg] 134 mm[Hg] e CW1 ([facility]) Body temperature 98.4 [degF] 98.4 [degF] eCW1 ( [facility]) Respiratory rate 17 /min 17 /min eCW1 ([facility]) Heart rate 90 /min 90 /min eCW1 ([facility]) Body mass index (BMI) [Ratio] 31.97 kg/m2 31.97 kg/m2 eCW1 ([facility]) Body height 61 [in_i] 61 [in_i] eCW1 [facility] Body weight 169.2 [lb_av] 169.2 [lb_av] eCW1 ([facility]) Body mass index (BMI) [Ratio] 30.0 kg/m2 30.0 k g/m2 [facility] ([facility]) Body weight 164.00 [lb_av] 164.00 [lb_av] [facility] T ([facility]) Body height 62 [in_i] 62 [in_i] [facility] ([facility]) 5'2" Body temperature 97.6 [degF] 97.6 [degF] [facility] ([facility]) Body weight 74.504 kg 74.504 kg [facility] ([facility], ) Body mass index (BMI) [Ratio] 29.6 kg/m2 29.6 k g/m2 [facility] Body weight 164.25 [lb_av] 164.25 [lb_av] [facility] T ([facility], ) Body height 62.5 [in_i] 62.5 [in_i] [facility], [facility] 5'2.50" Body temperature 97.7 [degF] 97.7 [degF] [facility] ([facility], ) Oxygen saturation in Arterial blood by Pulse oximetry 99 % 99 % [facility] ([facility], ) Heart rate 81 /min 81 /min [facility] ([facility], ) Diastolic blood pressure 66 mm[Hg] 66 mm[Hg] [facility] ) Systolic blood pressure 116 mm[Hg] 116 mm[Hg] M EDENT ([facility]) Body weight 69.571 kg 69.571 kg [facility] ([facility]) Body mass index (BMI) [Ratio] 27.6 kg/m2 27.6 k g/m2 [facility] ([facility]) Body weight 153.38 [lb_av] 153.38 [lb_av] [facility] ([facility]) Body height 62.5 [in_i] 62.5 [in_i] [facility] ([facility]) 5'2.50" Body temperature 97.0 [degF] 97.0 [degF] [facility] ([facility]) Oxygen saturation in Arterial blood by Pulse oximetry 99 % 99 % [facility] ([facility]) Heart rate 108 /min 108 /min [facility] ([facility]) Diastolic blood pressure 88 mm[Hg] 88 mm[Hg] [facility] ([facility]) Systolic blood pressure 136 mm[Hg] 136 mm[Hg] [facility] ([facility]) Body weight 69.401 kg 69.401 kg [facility] ([facility]) Body mass index (BMI) [Ratio] 27.5 kg/m2 27.5 k g/m2 [facility] ([facility]) Body weight 153.00 [lb_av] 153.00 [lb_av] [facility] Body height 62.5 [in_i] 62.5 [in_i] [facility] ([facility]) 5'2.50" Body temperature 98.6 [degF] 98.6 [degF] [facility] ([facility]) Oxygen saturation in Arterial blood by Pulse oximetry 98 % 98 % [facility] ([facility]) Heart rate 102 /min 102 /min [facility] ([facility]) Diastolic blood pressure 78 mm[Hg] 78 mm[Hg] [facility] ([facility]) Systolic blood pressure 114 mm[Hg] 114 mm[Hg] [facility] ([facility]) Body mass index (BMI) [Ratio] 27.1 kg/m2 27.1 k g/m2 [facility] ([facility]) Body weight 148.12 [lb_av] 148.12 [lb_av] [facility] T ([facility]) Body height 62 [in_i] 62 [in_i] [facility] ([facility]) 5'2" Body temperature 98.4 [degF] 98.4 [degF] [facility] ([facility]) Diastolic blood pressure 68 mm[Hg] 68 mm[Hg] eCW1 ([facility]) Systolic blood pressure 129 mm[Hg] 129 mm[Hg] e CW1 ([facility]) Body temperature 98.9 [degF] 98.9 [degF] eCW1 ( [facility]) Respiratory rate 18 /min 18 /min eCW1 ([facility]) Heart rate 90 /min 90 /min eCW1 ([facility]) Body mass index (BMI) [Ratio] 28.30 kg/m2 28.30 kg/m2 eCW1 ([facility]) Body height 61 [in_us] 61 [in_us] eCW1 ([facility]) Body weight Measured 149.8 [lb_av] 149.8 [lb_av ] eCW1 ([facility]) Diastolic blood pressure 81 mm[Hg] 81 mm[Hg] eCW1 ([facility]) Systolic blood pressure 128 mm[Hg] 128 mm[Hg] e CW1 ([facility]) Body temperature 100.3 [degF] 100.3 [degF] eCW1 ([facility]) Respiratory rate 18 /min 18 /min eCW1 ([facility]) Heart rate 87 /min 87 /min eCW1 ([facility]) Body mass index (BMI) [Ratio] 28.15 kg/m2 28.15 kg/m2 W1 ([facility]) Body height 61 [in_us] 61 [in_us] eCW1 ([facility]) Body weight Measured 149 [lb_av] 149 [lb_av] eC W1 ([facility]) Patient Treatment Plan of Care Planned Activity Planned Date Details Description Data Source (s) Doxycycline Monohydrate 100 MG Oral Tablet 10/04/2020 12:00:[address] eCW1 ([facility]) Doxycycline Monohydrate 100 MG Oral Tablet 10/04/2020 12:00:[address] eCW1 ([facility]) Doxycycline Monohydrate 100 MG Oral Tablet 10/04/2020 12:00:[address] eCW1 ([facility]) Doxycycline Monohydrate 100 MG Oral Tablet 10/04/2020 12:00:[address] eCW1 ([facility]) Doxycycline Monohydrate 100 MG Oral Tablet 10/04/2020 12:00:[address] eCW1 ([facility]) Doxycycline Monohydrate 100 MG Oral Tablet 10/04/2020 12:00:[address] eCW1 ([facility]) Alendronic acid 70 MG Oral Tablet [Fosamax] 09/28/2020 12:00:00 AM EST eCW1 ([facility]) Cholestyramine Resin 66.7 MG/ML Oral Suspension 06/12/2020 12:00:00 AM EDT eCW1 ([facility]) Cholestyramine Resin 66.7 MG/ML Oral Suspension 06/12/2020 12:00:00 AM EDT eCW1 ([facility]) Cholestyramine Resin 66.7 MG/ML Oral Suspension 06/12/2020 12:00:00 AM EDT eCW1 ([facility]) Cholestyramine Resin 66.7 MG/ML Oral Suspension 06/12/2020 12:00:00 AM EDT eCW1 ([facility]) Cholestyramine Resin 66.7 MG/ML Oral Suspension 06/12/2020 12:00:00 AM EDT eCW1 ([facility]) Cholestyramine Resin 66.7 MG/ML Oral Suspension 06/12/2020 12:00:00 AM EDT eCW1 ([facility]) Cholestyramine Resin 66.7 MG/ML Oral Suspension 06/12/2020 12:00:00 AM EDT eCW1 ([facility]) Prednisone 10 MG Oral Tablet 05/13/2020 12:00:00 AM EDT eCW1 ([facility]) Doxycycline Monohydrate 100 MG Oral Capsule 05/13/2020 12:00:00 AM EDT eCW1 ([facility]) Doxycycline Monohydrate 100 MG Oral Capsule 05/13/2020 12:00:00 AM EDT eCW1 ([facility]) Prednisone 10 MG Oral Tablet 05/13/2020 12:00:00 AM EDT eCW1 ([facility]) Prednisone 10 MG Oral Tablet 05/13/2020 12:00:00 AM EDT eCW1 ([facility]) Doxycycline Monohydrate 100 MG Oral Capsule 05/13/2020 12:00:00 AM EDT eCW1 ([facility]) Prednisone 10 MG Oral Tablet 05/13/2020 12:00:00 AM EDT eCW1 ([facility]) Doxycycline Monohydrate 100 MG Oral Capsule 05/13/2020 12:00:00 AM EDT eCW1 ([facility]) Prednisone 10 MG Oral Tablet 05/13/2020 12:00:00 AM EDT eCW1 ([facility]) Doxycycline Monohydrate 100 MG Oral Capsule 05/13/2020 12:00:00 AM EDT eCW1 ([facility]) Prednisone 10 MG Oral Tablet 05/13/2020 12:00:00 AM EDT eCW1 ([facility]) Doxycycline Monohydrate 100 MG Oral Capsule 05/13/2020 12:00:00 AM EDT eCW1 ([facility]) Doxycycline Monohydrate 100 MG Oral Capsule 05/13/2020 12:00:00 AM EDT eCW1 ([facility]) Doxycycline Monohydrate 100 MG Oral Capsule 05/13/2020 12:00:00 AM EDT eCW1 ([facility]) Prednisone 10 MG Oral Tablet 05/13/2020 12:00:00 AM EDT eCW1 ([facility]) Doxycycline Monohydrate 100 MG Oral Capsule 05/13/2020 12:00:00 AM EDT eCW1 ([facility]) Prednisone 10 MG Oral Tablet 05/13/2020 12:00:00 AM EDT eCW1 ([facility]) Prednisone 10 MG Oral Tablet 05/13/2020 12:00:00 AM EDT eCW1 ([facility]) Amoxicillin 875 MG / Clavulanate 125 MG Oral Tablet 04/10/20 12:00:00 AM EDT eCW1 ([facility]) 120 ACTUAT Fluticasone propionate 0.23 M G/ACTUAT / salmeterol 0.021 MG/ACTUAT Metered Dose Inhaler [Advair] 01/12/2020 12:00:00 AM EST eCW1 ([facility]) 120 ACTUAT Fluticasone propionate 0.23 M G/ACTUAT / salmeterol 0.021 MG/ACTUAT Metered Dose Inhaler [Advair] 01/12/2020 12:00:00 AM EST eCW1 ([facility]) 120 ACTUAT Fluticasone propionate 0.23 M G/ACTUAT / salmeterol 0.021 MG/ACTUAT Metered Dose Inhaler [Advair] 01/12/2020 12:00:00 AM EST eCW1 ([facility]) Doxycycline Monohydrate 100 MG Oral Capsule 01/03/2020 12:00:00 AM EST eCW1 ([facility])
[2021-01-11] MEDS ORDERED: LIDOCAINE 2% 100MG/5ML SDV (FOR ANES.) As Ordered ONE (09:40)
[2021-01-11] MEDS ORDERED: propofoL 200 MG/20 ML VIAL As Ordered ONE ×2 (09:40→11:54)
[2021-01-11] MEDS ORDERED: fentaNYL 100 MCG/2 ML INJECTION (J3010) As Ordered ONE (09:41)
--- NOTE | 2021-01-11 11:53 | ROOR ---
Patient Name: Roberta Fletcher Procedure Date: 01/11/2021 11:32 AM Date of : 1980 Age: 40 Room: [facility] Gender: Female Note Status: Finalized Procedure: Upper GI endoscopy Indications: Dyspepsia, Dysphagia Providers: Danny Heaton MD Referring MD: Magalis SALAS Requesting Provider: Medicines: Monitored Anesthesia Care Complications: No immediate complications. Procedure: Pre-Anesthesia Assessment: - Prior to the procedure, a History and Physical was performed, and patient medications and allergies were reviewed. The patient is competent. The risks and benefits of the procedure and the sedation options and risks were discussed with the patient. All questions were answered and informed consent was obtained. Patient identification and proposed procedure were verified by the physician, the nurse and the anesthesiologist in the procedure room. Mental Status Examination: alert and oriented. Airway Examination: normal oropharyngeal airway and neck mobility. Respiratory Examination: clear to auscultation. CV Examination: normal. Prophylactic Antibiotics: The patient does not require prophylactic antibiotics. Prior Anticoagulants: The patient has taken no previous anticoagulant or antiplatelet agents. ASA Grade Assessment: II - A patient with mild systemic disease. After reviewing the risks and benefits, the patient was deemed in satisfactory condition to undergo the procedure. The anesthesia plan was to use moderate sedation / analgesia (conscious sedation). Immediately prior to administration of medications, the patient was re-assessed for adequacy to receive sedatives. The heart rate, respiratory rate, oxygen saturations, blood pressure, adequacy of pulmonary ventilation, and response to care were monitored throughout the procedure. The physical status of the patient was re-assessed after the procedure. The Endoscope was introduced through the mouth, and advanced to the second part of duodenum. The upper GI endoscopy was accomplished without difficulty. The patient tolerated the procedure well. Findings: The examined esophagus was normal. The Z-line was regular and was found 36 cm from the incisors. Scattered moderate inflammation characterized by erythema, friability and granularity was found in the gastric antrum. Biopsies were taken with a cold forceps for Helicobacter pylori testing. Verification of patient identification for the specimen was done by the physician and nurse using the patient's name, date and medical record number. Estimated blood loss was minimal. The duodenal bulb and second portion of the duodenum were normal. Biopsies for histology were taken with a cold forceps for evaluation of celiac disease. Impression: - Normal esophagus. - Z-line regular, 36 cm from the incisors. - Gastritis. Biopsied. - Normal duodenal bulb and second portion of the duodenum. Biopsied. Recommendation: - Patient has a contact number available for emergencies. The signs and symptoms of potential delayed complications were discussed with the patient. Return to normal activities tomorrow. Written discharge instructions were provided to the patient. - High fiber diet. - Continue present medications. - Await pathology results. - Follow an antireflux regimen. - Telephone GI clinic for pathology results in 2 weeks. - Return to primary care physician. Procedure Code(s): --- Professional --- 86532, Esophagogastroduodenoscopy, flexible, transoral; with biopsy, single or multiple Diagnosis Code(s): --- Professional --- K29.70, Gastritis, unspecified, without bleeding R10.13, Epigastric pain R13.10, Dysphagia, unspecified CPT copyright 2019 [employer]. All rights reserved. The codes documented in this report are preliminary and upon engraved roller inspector review may be revised to meet current compliance requirements. Danny Heaton MD Danny Heaton MD 01/11/2021 11:52:21 AM Electronically signed by Danny Heaton MD Number of Addenda: 0 Note Initiated On: 01/11/2021 11:32 AM Estimated Blood Loss: Estimated blood loss was minimal.
[2021-01-11] MEDS ORDERED: PHENYLephrine 500MCG 5ML (100MCG/ML) SYRINGE As Ordered ONE (11:56)
--- NOTE | 2021-01-11 12:27 | ROOR ---
Patient Name: Roberta Fletcher Procedure Date: 01/11/2021 11:32 AM Date of : 1980 Age: 40 Room: [facility] Gender: Female Note Status: Finalized Procedure: Colonoscopy Indications: Chronic diarrhea Providers: Danny Heaton MD Referring MD: Magalis SALAS Requesting Provider: Medicines: Monitored Anesthesia Care Complications: No immediate complications. Procedure: Pre-Anesthesia Assessment: - Prior to the procedure, a History and Physical was performed, and patient medications and allergies were reviewed. The patient is competent. The risks and benefits of the procedure and the sedation options and risks were discussed with the patient. All questions were answered and informed consent was obtained. Patient identification and proposed procedure were verified by the physician, the nurse and the anesthesiologist in the procedure room. Mental Status Examination: alert and oriented. Airway Examination: normal oropharyngeal airway and neck mobility. Respiratory Examination: clear to auscultation. CV Examination: normal. Prophylactic Antibiotics: The patient does not require prophylactic antibiotics. Prior Anticoagulants: The patient has taken no previous anticoagulant or antiplatelet agents. ASA Grade Assessment: II - A patient with mild systemic disease. After reviewing the risks and benefits, the patient was deemed in satisfactory condition to undergo the procedure. The anesthesia plan was to use monitored anesthesia care (MAC). Immediately prior to administration of medications, the patient was re-assessed for adequacy to receive sedatives. The heart rate, respiratory rate, oxygen saturations, blood pressure, adequacy of pulmonary ventilation, and response to care were monitored throughout the procedure. The physical status of the patient was re-assessed after the procedure. The Colonoscope was introduced through the anus and advanced to the terminal ileum, with identification of the appendiceal orifice and IC valve. The colonoscopy was performed without difficulty. The patient tolerated the procedure well. The quality of the bowel preparation was good. The terminal ileum, ileocecal valve, appendiceal orifice, and rectum were photographed. Scope insertion time was 2 minutes. Scope withdrawal time was 9 minutes. The total duration of the procedure was 12 minutes. Findings: The perianal and digital rectal examinations were normal. The terminal ileum appeared normal. Eight sessile polyps were found in the transverse colon, ascending colon and cecum. The polyps were 5 to 10 mm in size. These polyps were removed with a hot snare. Resection and retrieval were complete. Verification of patient identification for the specimen was done by the physician and nurse using the patient's name, date and medical record number. Multiple small and large-mouthed diverticula were found from sigmoid to transverse colon. There was no evidence of diverticular bleeding. Non-bleeding external and internal hemorrhoids were found during retroflexion. The hemorrhoids were medium-sized. Impression: - The examined portion of the ileum was normal. - Eight 5 to 10 mm polyps in the transverse colon, in the ascending colon and in the cecum, removed with a hot snare. Resected and retrieved. - Moderate diverticulosis from sigmoid to transverse colon. There was no evidence of diverticular bleeding. - Non-bleeding external and internal hemorrhoids. Recommendation: - Patient has a contact number available for emergencies. The signs and symptoms of potential delayed complications were discussed with the patient. Return to normal activities tomorrow. Written discharge instructions were provided to the patient. - High fiber diet. - Continue present medications. - Use fiber, for example Citrucel, Fibercon, Konsyl or Metamucil. - Await pathology results. - Repeat colonoscopy in 3 years for surveillance based on pathology results. - Telephone GI clinic for pathology results in 2 weeks. - Return to primary care physician. Procedure Code(s): --- Professional --- 73063, Colonoscopy, flexible; with removal of tumor(s), polyp(s), or other lesion(s) by snare technique Diagnosis Code(s): --- Professional --- K64.8, Other hemorrhoids K63.5, Polyp of colon K52.9, Noninfective gastroenteritis and colitis, unspecified K57.30, Diverticulosis of large intestine without perforation or abscess without bleeding CPT copyright 2019 [employer]. All rights reserved. The codes documented in this report are preliminary and upon event host review may be revised to meet current compliance requirements. Danny Heaton MD Danny Heaton MD 01/11/2021 12:26:41 PM Electronically signed by Danny Heaton MD Number of Addenda: 0 Note Initiated On: 01/11/2021 11:32 AM Estimated Blood Loss: Estimated blood loss was minimal.
[2021-01-11 12:45] VITALS: BP 133/80
== END 2021-01-11 12:54 | disposition home or self-care (01) ==
LOC: M OPP 09:27
PROVIDERS: ATTEND Internal Medicine Gastroenterology
DX: K52.9 Noninfective gastroenteritis and colitis, unspecified (principal); R10.13 Epigastric pain; R13.10 Dysphagia, unspecified; K21.9 Gastro-esophageal reflux disease without esophagitis; D12.6 Benign neoplasm of colon, unspecified; K57.30 Diverticulosis of large intestine without perforation or abscess without bleeding; K64.8 Other hemorrhoids; D13.1 Benign neoplasm of stomach; D13.39 Benign neoplasm of other parts of small intestine; K29.70 Gastritis, unspecified, without bleeding; M81.0 Age-related osteoporosis without current pathological fracture; J45.909 Unspecified asthma, uncomplicated; Z88.1 Allergy status to other antibiotic agents; Z88.2 Allergy status to sulfonamides; Z88.6 Allergy status to analgesic agent; Z88.8 Allergy status to other drugs, medicaments and biological substances; Z79.899 Other long term (current) drug therapy; Z95.2 Presence of prosthetic heart valve; Z82.49 Family history of ischemic heart disease and other diseases of the circulatory system; Z80.8 Family history of malignant neoplasm of other organs or systems
CPT/HCPCS: 43239; 45385; 88305; J2370; J3010

== ENCOUNTER → 2021-01-15 | Outpatient (CLI) | payer OTHER, MEDICAID ==
[~2021-01-15] MED LIST changes: -NS 1,000 ML IV ONE
--- NOTE | 2021-01-16 08:52 | REP ---
INDICATION: PAIN IN RIGHT HIP/ LABRAL TEAR. COMPARISON: None. TECHNIQUE: Larger field of view coronal T1 and fat sat T2 images of both hips are acquired. Smaller [id number] T2 fat sat images of the right hip were acquired in all 3 planes. FINDINGS: Cortical and medullary bone signal intensity are normal in the proximal femurs bilaterally. There is no evidence to suggest avascular necrosis. Bony pelvic ring appears intact. No pelvic mass or adenopathy is seen. Abnormal fluid collection or abdominal wall defect is seen. There is mild sigmoid colon diverticulosis. The patient is apparently status post hysterectomy. There is mild bilateral superior acetabular spurring. A small subcortical cyst is seen in the acetabulum on the right. There is a tiny focus of T2 hyperintensity in the acetabular labral cartilage on the right indicating early degeneration change. No aline labral disruption is seen. Ligamentum teres is intact. No joint effusion is seen on either side. There is T2 hyperintensity adjacent to the greater trochanter on the right consistent with tendinitis bursitis change. A tiny sliver of fluid fluid is visible here. There are less prominent changes on the left. Symphysis pubis and SI joints are unremarkable. Periarticular skeletal muscle signal intensity is normal on T1 and T2 weighted scans. Hamstring tendon insertions are unremarkable and symmetric. IMPRESSION: Mild osteoarthritic changes noted as above. There are Lulu trochanteric edematous and fluid changes consistent with tendinitis and/or bursitis. <Electronically signed by Len Asher > 01/16/21 [id number]
== END ==
LOC: M RAD 17:56
PROVIDERS: ATTEND Orthopaedic Surgery
DX: M16.11 Unilateral primary osteoarthritis, right hip (principal); M85.48 Solitary bone cyst, other site; M25.751 Osteophyte, right hip; K57.32 Diverticulitis of large intestine without perforation or abscess without bleeding; Z90.710 Acquired absence of both cervix and uterus

== ENCOUNTER → 2021-04-11 | Outpatient (REF) | payer OTHER, MEDICAID | LOC: M SFHCLERA 15:58 | PROVIDERS: ATTEND Nurse Practitioner Family | DX: Z87.898 Personal history of other specified conditions (principal) ==

== ENCOUNTER → 2021-04-11 | Outpatient (CLI) | payer OTHER, MEDICAID ==
--- NOTE | 2021-04-11 12:11 | REP ---
INDICATION: PERSONAL HISTORY OF OTHER SPECIFIED CONDITIONS. COMPARISON: 02/16/2020 TECHNIQUE: PA and lateral views FINDINGS: The superior mediastinal structures are midline. The cardiac silhouette is unremarkable in size, shape, and position. The diaphragmatic surfaces of the lungs are regular, and the costophrenic angles are clear. The pulmonary nevarez are clear. The imaged osseous structures are intact. IMPRESSION: There is no acute cardiopulmonary disease. No significant change compared to the prior exam. <Electronically signed by Erick Monet > 04/11/21 [id number]
== END ==
LOC: M RAD 11:50
PROVIDERS: ATTEND Nurse Practitioner Family
DX: Z87.898 Personal history of other specified conditions (principal)
CPT/HCPCS: 71046; 87426; G0463; U0003

== ENCOUNTER → 2021-09-06 | Outpatient (CLI) | payer OTHER, MEDICAID ==
[~2021-09-06] MED LIST changes: +LIDOCAINE 1% MDV 20ML VIAL As Ordered ONE; +TRIAMCINOLONE ACETONIDE SUSP 40 MG/ML VIAL (J3301) As Ordered ONE
--- NOTE | 2021-09-06 16:21 | REP ---
INDICATION: PERSONAL TENDINITIS, LEFT LEG. COMPARISON: None. TECHNIQUE: The procedure was performed under the direct supervision of Dr. Ortega. The risks and benefits of the procedure were explained to the patient and informed consent was obtained. The left peroneal tendon was localized using ultrasound guidance. The skin was prepped and draped in a sterile fashion. Two mL of 1% lidocaine was used as a local anesthetic. Using ultrasound guidance a 25 gauge needle was inserted and advanced into the tendon sheath. 3 mL of a solution containing 2 mL of 1% lidocaine and 1 mL of Kenalog 40 mg was injected. The needle was then removed. The patient tolerated the procedure well and there were no immediate complications. FINDINGS: None IMPRESSION: Ultrasound-guided left peroneal tendon injection. <Electronically signed by Malick Rodriguez > 09/06/21 1610 <Electronically signed by Hayes Ortega > 09/06/21 [id number]
== END ==
LOC: M IRPRO 13:20
PROVIDERS: ATTEND Orthopaedic Surgery
DX: M76.72 Peroneal tendinitis, left leg (principal)
CPT/HCPCS: 20550; 76942; J3301

== ENCOUNTER → 2021-09-30 | Outpatient (CLI) | payer OTHER, MEDICAID ==
[~2021-09-30] MED LIST changes: -LIDOCAINE 1% MDV 20ML VIAL As Ordered ONE; -MONT10TA10 PO; +MONT10TA97 PO; -OMEP-221 PO; +OMEP40CA5 PO; -TRIAMCINOLONE ACETONIDE SUSP 40 MG/ML VIAL (J3301) As Ordered ONE
[2021-09-30 17:12] LABS: BASO % 0.3 % (0.0-1.0); EOS % 0.5 % (0.0-3.0); HEMATOCRIT 46.1 % (36.0-47.0); HEMOGLOBIN 15.2 g/dl (12.0-15.5); LYMPH # 2.3 10^3/uL (1.5-5.0); LYMPH % 31.2 % (24.0-44.0); MEAN CORPUSCULAR HEMOGLOBIN 31.9 pg (27.0-33.0); MEAN CORPUSCULAR VOLUME 96.6 fl (80.0-96.0); MONO # 0.7 10^3/uL (0.0-0.8); MONO % 9.4 % (2.0-8.0); NEUTROPHILS # 4.3 10^3/uL (1.5-8.5); NEUTROPHILS % 58.5 % (36.0-66.0); PLATELET COUNT, AUTOMATED 378 10^3/uL (150-450); RED BLOOD COUNT 4.77 10^6/uL (4.00-5.40); WHITE BLOOD COUNT 7.4 10^3/uL (4.0-10.0)
[2021-09-30 17:44] LABS: ALBUMIN 3.7 GM/DL (3.2-5.2); ALT/SGPT 22 U/L (12-78); BILIRUBIN,TOTAL 0.7 MG/DL (0.2-1.0); BLOOD UREA NITROGEN 14 MG/DL (7-18); CALCIUM LEVEL 9.6 MG/DL (8.5-10.1); CARBON DIOXIDE LEVEL 30 MEQ/L (21-32); CHLORIDE LEVEL 104 MEQ/L (98-107); CHOLESTEROL LEVEL 271 MG/DL (<200); CREATININE FOR GFR 0.89 MG/DL (0.55-1.30); FERRITIN 18 NG/ML (8-252); FREE T4 1.26 NG/DL (0.76-1.46); GLOMERULAR FILTRATION RATE > 60.0 (>58); GLUCOSE, FASTING 87 MG/DL (70-100); HDL CHOLESTEROL 100 MG/DL (>40); LDL CHOLESTEROL 157 MG/DL (<100); NON-HDL-C 171 MG/DL; POTASSIUM SERUM 4.2 MEQ/L (3.5-5.1); SODIUM LEVEL 140 MEQ/L (136-145); THYROID STIMULATING HORMONE 0.465 uIU/ML (0.358-3.740); TOTAL PROTEIN 7.8 GM/DL (6.4-8.2); TRIGLYCERIDES LEVEL 72 MG/DL (<150)
[2021-09-30 17:47] LABS: TOTAL 25(OH) VITAMIN D 50.8 NG/ML (30.0-100.0)
== END ==
LOC: M WUC 15:53
PROVIDERS: ATTEND Nurse Practitioner Family
DX: K21.9 Gastro-esophageal reflux disease without esophagitis (principal); R00.0 Tachycardia, unspecified; Z86.2 Personal history of diseases of the blood and blood-forming organs and certain disorders involving the immune mechanism; Z13.220 Encounter for screening for lipoid disorders; Z86.39 Personal history of other endocrine, nutritional and metabolic disease; Z79.899 Other long term (current) drug therapy
CPT/HCPCS: 36415; 80053; 80061; 82306; 82728; 84439; 84443; 85025; G0463

== ENCOUNTER → 2021-11-13 | Outpatient (CLI) | payer OTHER, MEDICAID | LOC: M RAD 08:40 | PROVIDERS: ATTEND Internal Medicine Gastroenterology | DX: R10.13 Epigastric pain (principal) ==

== ENCOUNTER → 2021-12-17 | Outpatient (REF) | payer OTHER, MEDICAID, MEDICARE | LOC: M SFHCPLAZ 16:46 | PROVIDERS: ATTEND Physician Assistant | DX: R05.9 Cough, unspecified (principal) ==

== ENCOUNTER → 2022-04-29 | Outpatient (CLI) | payer MEDICARE, MEDICAID ==
[~2022-04-29] MED LIST changes: -ACET1TAB16 PO; +ACET300T48 PO; -D31000TA2 PO; +VITA100093 PO
[2022-04-29 17:50] LABS: BASO % 0.4 % (0.0-1.0); EOS # 0.1 10^3/uL (0.0-0.5); EOS % 0.9 % (0.0-3.0); HEMATOCRIT 46.2 % (36.0-47.0); LYMPH # 2.4 10^3/uL (1.5-5.0); LYMPH % 35.5 % (24.0-44.0); MEAN CORPUSCULAR HGB CONC 32.5 g/dl (32.0-36.5); MEAN CORPUSCULAR VOLUME 95.5 fl (80.0-96.0); MONO # 0.6 10^3/uL (0.0-0.8); MONO % 8.7 % (2.0-8.0); NEUTROPHILS # 3.7 10^3/uL (1.5-8.5); NEUTROPHILS % 54.2 % (36.0-66.0); PLATELET COUNT, AUTOMATED 340 10^3/uL (150-450); RED BLOOD COUNT 4.84 10^6/uL (4.00-5.40); WHITE BLOOD COUNT 6.8 10^3/uL (4.0-10.0)
== END ==
LOC: M LAB 16:04
PROVIDERS: ATTEND Nurse Practitioner Family
DX: J45.40 Moderate persistent asthma, uncomplicated (principal)

== ENCOUNTER → 2022-05-01 | Outpatient (CLI) | payer MEDICARE, MEDICAID ==
[2022-05-01 17:18] LABS: ALBUMIN 3.6 GM/DL (3.2-5.2); ALT/SGPT 21 U/L (12-78); BILIRUBIN,TOTAL 0.8 MG/DL (0.2-1.0); BLOOD UREA NITROGEN 12 MG/DL (7-18); CALCIUM LEVEL 9.2 MG/DL (8.5-10.1); CARBON DIOXIDE LEVEL 27 MEQ/L (21-32); CHLORIDE LEVEL 108 MEQ/L (98-107); CREATININE FOR GFR 1.05 MG/DL (0.55-1.30); FOLATE > 24.0 NG/ML (>5.4); GLOMERULAR FILTRATION RATE > 60.0 (>58); GLUCOSE, FASTING 84 MG/DL (70-100); POTASSIUM SERUM 3.8 MEQ/L (3.5-5.1); SODIUM LEVEL 141 MEQ/L (136-145); THYROID STIMULATING HORMONE 0.569 uIU/ML (0.358-3.740); TOTAL PROTEIN 7.4 GM/DL (6.4-8.2); VITAMIN B12 LEVEL 393 PG/ML (247-911)
== END ==
LOC: M WUC 14:15
PROVIDERS: ATTEND Family Medicine
DX: R53.83 Other fatigue (principal); Z79.899 Other long term (current) drug therapy

== ENCOUNTER → 2022-07-17 | Outpatient (REF) | payer MEDICARE, MEDICAID | LOC: M SFHCPLAZ 13:13 | PROVIDERS: ATTEND Physician Assistant | DX: J01.90 Acute sinusitis, unspecified (principal) ==

== ENCOUNTER → 2023-02-10 | Outpatient (CLI) | payer MEDICARE, MEDICAID ==
[2023-02-10 17:32] LABS: ALBUMIN 3.4 G/DL (3.2-5.2); ALKALINE PHOSPHATASE 56 U/L (46-116); ALT/SGPT 18 U/L (7.0-40); AST/SGOT 19 U/L (<34); BILIRUBIN,TOTAL 0.6 MG/DL (0.3-1.2); BLOOD UREA NITROGEN 9 MG/DL (9-23); CALCIUM LEVEL 8.6 MG/DL (8.5-10.1); CARBON DIOXIDE LEVEL 27 MMOL/L (20-31); CHLORIDE LEVEL 107 MMOL/L (98-107); CHOLESTEROL LEVEL 201 MG/DL (<200); CHOLESTEROL RISK RATIO 2.64 (<5); CREATININE FOR GFR 0.75 MG/DL (0.55-1.30); GLOMERULAR FILTRATION RATE > 60.0 (>58); GLUCOSE, FASTING 77 MG/DL (60-100); LDL CHOLESTEROL 98.4 MG/DL (<100); POTASSIUM SERUM 4.1 MMOL/L (3.5-5.1); SODIUM LEVEL 138 MMOL/L (136-145); TOTAL 25(OH) VITAMIN D 46.2 NG/ML (20.0-100.0); TOTAL PROTEIN 6.2 G/DL (5.7-8.2); TRIGLYCERIDES LEVEL 133 MG/DL (<150)
== END ==
LOC: M WUC 13:41
PROVIDERS: ATTEND Family Medicine
DX: E55.9 Vitamin D deficiency, unspecified (principal); E66.9 Obesity, unspecified

== ENCOUNTER → 2023-03-11 | Outpatient (CLI) | payer MEDICARE, MEDICAID ==
[~2023-03-11] MED LIST changes: +FLUT50SP17; -FLUTISP
== END ==
LOC: M WHC 15:57
PROVIDERS: ATTEND Family Medicine
DX: Z12.31 Encounter for screening mammogram for malignant neoplasm of breast (principal)

== ENCOUNTER → 2023-03-17 | Outpatient (CLI) | payer MEDICAID, MEDICARE | LOC: M WHC 14:25 | PROVIDERS: ATTEND Family Medicine | DX: M85.851 Other specified disorders of bone density and structure, right thigh (principal); M85.852 Other specified disorders of bone density and structure, left thigh; M85.88 Other specified disorders of bone density and structure, other site ==

== ENCOUNTER → 2023-12-15 | Outpatient (CLI) | payer MEDICARE, MEDICAID ==
[~2023-12-15] MED LIST changes: -FLUT50SP17; +FLUTISP; +LORA-1041 PO; -LORA-674 PO
[2023-12-15 17:03] LABS: HEMOGLOBIN A1c 4.8 % (4.0-6.0)
[2023-12-15 17:08] LABS: BASO % 0.5 % (0.0-1.0); EOS # 0.1 10^3/uL (0.0-0.5); EOS % 1.4 % (0.0-3.0); HEMATOCRIT 44.9 % (36.0-47.0); HEMOGLOBIN 14.5 g/dl (12.0-15.5); LYMPH # 3.3 10^3/uL (1.5-5.0); MEAN CORPUSCULAR HEMOGLOBIN 31.7 pg (27.0-33.0); MEAN CORPUSCULAR HGB CONC 32.3 g/dl (32.0-36.5); MEAN CORPUSCULAR VOLUME 98.2 fl (80.0-96.0); MONO # 0.6 10^3/uL (0.0-0.8); MONO % 8.4 % (2.0-8.0); NEUTROPHILS # 3.3 10^3/uL (1.5-8.5); NEUTROPHILS % 44.6 % (36.0-66.0); PLATELET COUNT, AUTOMATED 389 10^3/uL (150-450); RED BLOOD COUNT 4.57 10^6/uL (4.00-5.40); WHITE BLOOD COUNT 7.4 10^3/uL (4.0-10.0)
[2023-12-15 17:20] LABS: ALBUMIN 3.6 G/DL (3.2-5.2); ALKALINE PHOSPHATASE 70 U/L (46-116); ALT/SGPT 14 U/L (7.0-40); AST/SGOT 15 U/L (<34); BILIRUBIN,TOTAL 1.1 MG/DL (0.3-1.2); BLOOD UREA NITROGEN 11 MG/DL (9-23); CALCIUM LEVEL 9.4 MG/DL (8.5-10.1); CARBON DIOXIDE LEVEL 29 MMOL/L (20-31); CHLORIDE LEVEL 106 MMOL/L (98-107); CREATININE FOR GFR 0.77 MG/DL (0.55-1.30); GLOMERULAR FILTRATION RATE > 60.0 (>58); GLUCOSE, FASTING 79 MG/DL (60-100); POTASSIUM SERUM 4.3 MMOL/L (3.5-5.1); SODIUM LEVEL 142 MMOL/L (136-145); TOTAL PROTEIN 6.9 G/DL (5.7-8.2)
[2023-12-15 17:22] LABS: THYROID STIMULATING HORMONE 1.119 uIU/ML (0.55-4.78); TOTAL 25(OH) VITAMIN D 41.9 NG/ML (20.0-100.0)
[2023-12-15 17:24] LABS: FOLATE 16.07 NG/ML (>5.4); FREE T4 1.24 NG/DL (0.89-1.76); VITAMIN B12 LEVEL 442 PG/ML (211-911)
== END ==
LOC: M WUC 14:22
PROVIDERS: ATTEND Family Medicine
DX: R53.83 Other fatigue (principal)

== ENCOUNTER 2024-03-01 06:31 | Day surgery (SDC) | payer MEDICARE, MEDICAID ==
[~2024-03-01] VITALS: Ht 154.9 cm; Wt 92.5 kg
[~2024-03-01 06:31] MED LIST changes: +B-12100021 PO; +CALC500C16 PO; +K2 P1TAB PO; +OMEGCAP4 PO; +VITA500C3 PO
[2024-03-01] MEDS ORDERED: propofoL 200 MG/20 ML VIAL As Ordered ONE (06:56)
[2024-03-01] MEDS: NS 1,000 ML IV ONE (07:13)
[2024-03-01 08:05] VITALS: TEMP 97.6
[2024-03-01 08:27] VITALS: BP 123/80; O2SAT 99
== END 2024-03-01 08:36 | disposition home or self-care (01) ==
LOC: M OPP 06:31
PROVIDERS: ATTEND Internal Medicine Gastroenterology
DX: Z12.11 Encounter for screening for malignant neoplasm of colon (principal); Z86.010 Personal history of colon polyps; D12.6 Benign neoplasm of colon, unspecified; K64.8 Other hemorrhoids; K64.4 Residual hemorrhoidal skin tags; K57.30 Diverticulosis of large intestine without perforation or abscess without bleeding; K29.70 Gastritis, unspecified, without bleeding; K31.89 Other diseases of stomach and duodenum; K44.9 Diaphragmatic hernia without obstruction or gangrene; R10.13 Epigastric pain; Z79.1 Long term (current) use of non-steroidal anti-inflammatories (NSAID); Z79.51 Long term (current) use of inhaled steroids; Z79.52 Long term (current) use of systemic steroids; Z79.891 Long term (current) use of opiate analgesic; Z79.899 Other long term (current) drug therapy; Z88.1 Allergy status to other antibiotic agents; Z88.2 Allergy status to sulfonamides; Z88.6 Allergy status to analgesic agent; Z91.011 Allergy to milk products; Z91.048 Other nonmedicinal substance allergy status

== ENCOUNTER → 2024-03-14 | Outpatient (CLI) | payer MEDICARE, MEDICAID | LOC: M WHC 16:00 | PROVIDERS: ATTEND Family Medicine | DX: Z12.31 Encounter for screening mammogram for malignant neoplasm of breast (principal) ==

== ENCOUNTER → 2024-06-03 | Outpatient (CLI) | payer MEDICARE, MEDICAID | LOC: M LRY 07:04 | PROVIDERS: ATTEND Nurse Practitioner Family | DX: Z13.79 Encounter for other screening for genetic and chromosomal anomalies (principal) ==

== ENCOUNTER → 2024-08-09 | Outpatient (CLI) | payer MEDICARE, MEDICAID ==
[~2024-08-09] MED LIST changes: +ISOVUE-370 76% 100ML VIAL As Ordered ONE
== END ==
LOC: M RAD 09:06
PROVIDERS: ATTEND Nurse Practitioner Family
DX: R10.9 Unspecified abdominal pain (principal)
CPT/HCPCS: 74178; Q9967

== ENCOUNTER → 2025-04-03 | Outpatient (CLI) | payer MEDICARE, MEDICAID ==
[~2025-04-03] MED LIST changes: -ISOVUE-370 76% 100ML VIAL As Ordered ONE
== END ==
LOC: M WUC 14:35
PROVIDERS: ATTEND Physician Assistant
DX: M25.561 Pain in right knee (principal)

== ENCOUNTER → 2025-04-05 | Outpatient (CLI) | payer MEDICARE, MEDICAID ==
[2025-04-05 17:49] LABS: BASO % 0.3 % (0.0-1.0); EOS # 0.1 10^3/uL (0.0-0.5); HEMATOCRIT 41.4 % (36.0-47.0); HEMOGLOBIN 13.7 g/dl (12.0-15.5); LYMPH # 2.9 10^3/uL (1.5-5.0); MEAN CORPUSCULAR HEMOGLOBIN 31.6 pg (27.0-33.0); MEAN CORPUSCULAR HGB CONC 33.1 g/dl (32.0-36.5); MEAN CORPUSCULAR VOLUME 95.6 fl (80.0-96.0); MONO # 0.7 10^3/uL (0.0-0.8); MONO % 9.7 % (2.0-8.0); NEUTROPHILS # 3.4 10^3/uL (1.5-8.5); NEUTROPHILS % 47.7 % (36.0-66.0); PLATELET COUNT, AUTOMATED 365 10^3/uL (150-450); RED BLOOD COUNT 4.33 10^6/uL (4.00-5.40); WHITE BLOOD COUNT 7.1 10^3/uL (4.0-10.0)
[2025-04-05 18:10] LABS: HEMOGLOBIN A1c 5.1 % (4.0-6.0)
[2025-04-05 18:13] LABS: ALBUMIN 3.4 G/DL (3.2-5.2); ALKALINE PHOSPHATASE 79 U/L (35-104); ALT/SGPT 14 U/L (7.0-40); AST/SGOT 14 U/L (<34); BILIRUBIN,TOTAL 0.9 MG/DL (0.3-1.2); BLOOD UREA NITROGEN 16 MG/DL (9-23); CALCIUM LEVEL 8.9 MG/DL (8.5-10.1); CARBON DIOXIDE LEVEL 24 MMOL/L (20-31); CHLORIDE LEVEL 106 MMOL/L (98-107); CHOLESTEROL LEVEL 228 MG/DL (<200); CREATININE FOR GFR 0.76 MG/DL (0.55-1.30); GLOMERULAR FILTRATION RATE > 90.0 (>58); GLUCOSE, FASTING 79 MG/DL (60-100); HDL CHOLESTEROL 73.5 MG/DL (>40); LDL CHOLESTEROL 136.1 MG/DL (<100); NON-HDL-C 154.5 MG/DL; SODIUM LEVEL 141 MMOL/L (136-145); TRIGLYCERIDES LEVEL 92 MG/DL (<150)
[2025-04-05 18:14] LABS: TOTAL 25(OH) VITAMIN D 36.3 NG/ML (20.0-100.0)
== END ==
LOC: M WUC 14:59
PROVIDERS: ATTEND Family Medicine
DX: Z00.00 Encounter for general adult medical examination without abnormal findings (principal); G89.29 Other chronic pain; E78.00 Pure hypercholesterolemia, unspecified; Z79.899 Other long term (current) drug therapy

== ENCOUNTER → 2025-04-06 | Outpatient (REF) | payer MEDICARE, MEDICAID ==
[2025-04-12 03:06] LABS: AMPHETAMINE SCREEN, URINE Negative ng/mL (Cutoff=1000); BARBITURATES SCREEN, URINE Negative ng/mL (Cutoff=200); BENZODIAZEPINES, URINE SCREEN Negative ng/mL (Cutoff=200); CANNABINOID SCREEN, URINE Negative ng/mL (Cutoff=20); COCAINE SCREEN, URINE Negative ng/mL (Cutoff=300); CODEINE CONFIRM 1986 ng/mL (Cutoff=100); CODEINE, URINE Positive (.); CREATININE, URINE 51.6 mg/dL (20.0-300.0); HYDROCODONE, URINE Negative (Cutoff=100); HYDROMORPHONE, URINE Negative (Cutoff=100); METHADONE, URINE SCREEN Negative ng/mL (Cutoff=300); MORPHINE CONFIRM, URINE 179 ng/mL (Cutoff=100); MORPHINE, URINE Positive (.); OPIATE SCREEN, URINE See Final Results ng/mL (Cutoff=300); OPIATES, URINE Positive ng/mL (Cutoff=300); OXYCODONE, SCREEN, URINE Negative ng/mL (Cutoff=100); PCP SCREEN, URINE Negative ng/mL (Cutoff=25); SPECIFIC GRAVITY, URINE 1.014 (.); pH, URINE 5.6 (4.5-8.9)
== END ==
LOC: M SFHCLERA 17:13
PROVIDERS: ATTEND Family Medicine
DX: Z00.00 Encounter for general adult medical examination without abnormal findings (principal); G89.29 Other chronic pain

== ENCOUNTER → 2025-04-06 | Outpatient (CLI) | payer MEDICARE, MEDICAID | LOC: M WHC 12:22 | PROVIDERS: ATTEND Family Medicine | DX: Z00.00 Encounter for general adult medical examination without abnormal findings (principal); G89.29 Other chronic pain; Z12.31 Encounter for screening mammogram for malignant neoplasm of breast; M81.0 Age-related osteoporosis without current pathological fracture; R92.313 Mammographic fatty tissue density, bilateral breasts; M85.88 Other specified disorders of bone density and structure, other site ==